=== PATIENT | female | born 1990 | race Caucasian/White ===

== ENCOUNTER 2020-02-28 19:15 | Emergency (ER) | payer OTHER, MEDICAID, SELFPAY ==
[2020-02-28 19:20] VITALS: BP 125/84; PULSE 120; RESP 20; TEMP 36.8; O2SAT 100; BMI 28.3
[2020-02-28 19:45] LABS: Glucose Urine UA NEG (NEG); Leukocyte Esterase Urine NEG (NEG); Nitrite Urine NEG (NEG); PH 5.5 (5.0-8.0); Urine Blood NEG (NEG); Urine Ketones NEG (NEG); Urine Protein NEG (NEG-TRACE)
[2020-02-28 19:51] LABS: Appearance Urine CLEAR; Color Urine YELLOW
[2020-02-28] MEDS: cefTRIAXone sodium 250 MG, Lidocaine HCl 1 % MPF 0.9 ML IM (20:11)
[2020-02-28] MEDS: Azithromycin 500 MG TABLET 1000 MG PO (20:11)
--- NOTE | 2020-02-28 20:24 | PC.NURSE ---
urine was obtained in triage, called lab and they are looking for urine, pt medicated per order.
--- NOTE | 2020-02-28 20:31 | ED_ITS ---
HPI - Female Genitourinary General Chief complaint: Urogenital-Female Stated complaint: STD TEST Time Seen by Provider: 02/28/20 19:45 Source: patient Mode of arrival: ambulatory Limitations: no limitations History of Present Illness HPI Narrative: States informed by her ex- whom she has been sexually active with that he has gonorrhea and she is now having symptoms of burning-like discomfort with urination and some rectal itching. Has been in the ED as well getting tested and treated for gonorrhea. No vaginal rash, lesions, bleeding. States on control no concern for . MD elicited complaint: dysuria Pertinent past history: STI/STD Related Data Allergies Allergy/AdvReac Type Severity Reaction Status Date / Time No Known Allergies Allergy Verified 02/28/20 19:26 Review of Systems Review of Systems: Constitutional: No Weight loss, No Fever, No Chills, No Night Sweats, No Fatigue, No Malaise ENT/Mouth: No Hearing loss, No Ear Pain, No Nasal Congestion, No Sinus Pain, No Hoarseness Eyes: No Eye Pain, No Swelling, No Redness, No Foreign Body, No Discharge, No Vision Changes Cardiovascular: No Chest Pain, No SOB, No Dyspnea on Exertion, No Orthopnea, No Edema, No Palpitations Respiratory: No Cough, No Sputum, No Wheezing, No Smoke Exposure, No Dyspnea Gastrointestinal: No Nausea, No Vomiting, No Diarrhea, No Constipation, No abdominal Pain, No Hematochezia, No Melena Genitourinary: no irregular bleeding, + Dysuria, No Urinary Frequency, No Hematuria, No Urinary Incontinence, No Urgency, No Flank Pain, No Urinary Flow Changes, No Hesitancy Musculoskeletal: No joint pain, No Myalgias, No Joint Swelling Skin: No Skin Lesions, No rash Neuro: No Headache Psych: No Social Issues, Heme/Lymph: No Bruising, No Bleeding,No Lymphadenopathy Endocrine: No Polyuria, No Polydipsia, No Temperature Intolerance Yes all other systems are reviewed and are negative PMFSH Past Medical History Medical History (Updated 02/28/20 @ 20:32 by Mikie Hansen NP) No known health problems Social History Social History Advance Directives: No Advance Directives Information Provided: Yes Physical Exam Vital Signs: Vital Signs: Last Vital Signs Temp 98.3 F 02/28/20 19: Pulse 120 H 12/10/20 19:20 Resp 20 02/28/20 19:20 BP 125/84 02/28/20 19:20 Pulse Ox 100 02/28/20 19:20 Body Mass Index 28.3 Reviewed Const: General: cooperative and healthy appearing; No acute distress or intoxicated appearing Nutritional Appearance: average body habitus Orientation/consciousness: patient oriented x3 HENMT: Head: Yes normal to inspection Ears: hearing grossly normal bilaterally Eyes: General: appearance normal, both eyes and all related structures Visual Armenta: normal visual armenta by confrontation Chest: Chest palpation & inspection: normal inspection of the chest Resp: Effort & Inspection: normal respiratory effort Cardio: Jugular venous distension: no JVD GI: Inspection: Yes normal to inspection Percussion: Yes normal to percussion Auscultation: normal bowel sounds : General: Yes no CVA tenderness Back/Spine/Pelvis: Back: no CVA tenderness Skin: General skin exam: no rashes or lesions noted Neuro: General: patient oriented x3 Extrem: General: Yes normal to inspection MDM - Female Genitourinary Lab Data Labs: Lab Results 02/28/20 Range/Units 19:32 Urine Color YELLOW Urine Appearance CLEAR Urine pH 5.5 (5.0-8.0) Ur Specific [place] 1.010 (1.005-1.025) Urine Protein NEG (NEG-TRACE) MG/DL Urine Glucose (UA) NEG (NEG) MG/DL Urine Ketones NEG (NEG) MG/DL Urine Blood NEG (NEG) Urine Nitrite NEG (NEG) Ur Leukocyte Esterase NEG (NEG) Discharge Plan Discharge Clinical Impression: Encounter for assessment of STD exposure Patient Disposition: Home, Self-Care Instructions: Sexually Transmitted Diseases (ED), Safe Sex Practices (ED) Additional Instructions: Please follow-up with the health center for full panel STD testing as reviewed Today you were evaluated for 2 common STDs (chlamydia/gonorrhea) and treated for this We have gone ahead and tested you this may take up to 3-4 days results will call with results only if positive Please avoid any further low sexual activity until your symptoms resolve and you have been cleared by the [facility] Return if any concerns or worsening symptoms Thank you Referrals: Physician,None [Primary Care Provider] - 3 days ([facility] )
--- NOTE | 2020-02-28 20:45 | PC.NURSE ---
patient uncooperative, patient left without discharge paperwork, provider did go over discharge prior to them leaving
[2020-03-28 16:15] LABS: CT PCR NOT DETECTED (Not Detect.); NG PCR NOT DETECTED (Not Detect.)
== END 2020-02-28 20:48 | disposition home or self-care (01) ==
PROVIDERS: Emergency Provider Internal Medicine
DX: Z20.2 Contact with and (suspected) exposure to infections with a predominantly sexual mode of transmission (principal)
CPT/HCPCS: 81003; 81025; 87491; 87591; 99283; J0696

== ENCOUNTER 2020-05-15 13:03 | Emergency (ER) | payer OTHER, SELFPAY | END 2020-05-15 13:31 | disposition left against medical advice (07) | PROVIDERS: Emergency Provider Emergency Medicine | DX: N93.9 Abnormal uterine and vaginal bleeding, unspecified (principal) ==

== ENCOUNTER 2020-05-21 19:45 | Emergency (ER) | payer OTHER, SELFPAY | END 2020-05-21 21:08 | disposition left against medical advice (07) | PROVIDERS: Emergency Provider Emergency Medicine | DX: Z11.3 Encounter for screening for infections with a predominantly sexual mode of transmission (principal) ==

== ENCOUNTER 2021-05-27 08:12 | Outpatient (REF) | payer OTHER, MEDICAID, SELFPAY ==
--- NOTE | ~2021-05-27 | XR_ITS ---
EXAMINATION: XR FOOT, LEFT CLINICAL INFORMATION: Pain COMPARISON: None TECHNIQUE: AP, lateral, and oblique views of the left foot. FINDINGS: There is normal alignment without acute fracture or dislocation. Joint spaces are preserved. There is a focal soft tissue prominence over the fifth metatarsophalangeal joint. XR/XR foot LT min 3V IMPRESSION: No acute bony abnormality of the left foot. Focal soft tissue prominence over the fifth metatarsophalangeal joint. Consider further evaluation with ultrasound.
[2021-05-27 11:29] LABS: MANUAL DIFF FLAG NO
[2021-05-27 11:41] LABS: Basophils Absolute Auto 0.1 X10*3/uL (0.0-0.2); Basophils Percent Auto 0.6 % (0-2); Eosinophils Absolute Auto 0.3 X10*3/uL (0.0-0.4); Eosinophils Percent Auto 3.4 % (0-4); Hematocrit 41.6 % (37.0-47.0); Hemoglobin 13.7 g/dl (12.0-16.0); Imm Gran Abs Auto 0.06 X10*3/uL (0.00-0.03); Imm Gran Pct Auto 0.7 % (0.0-0.4); Lymphocytes Absolute Auto 1.6 X10*3/uL (1.2-4.9); Mean Corpuscular HGB Conc 32.9 g/dl (31.0-35.0); Mean Corpuscular Hemoglobin 29.6 pg (27.0-33.0); Mean Corpuscular Volume 89.8 fL (80.0-98.0); Mean Platelet Volume 11.8 fL (9.4-12.3); Monocytes Absolute Auto 0.6 X10*3/uL (0.1-1.2); Monocytes Percent Auto 7.1 % (2-11); Neutrophils Absolute Auto 6.3 x10*3/uL (2.0-8.3); Neutrophils Percent Auto 70.2 % (45-73); Platelet Count 276 X10*3/uL (160-400); Red Blood Count 4.63 X10*6/uL (4.20-5.50); Red Cell Distribution Width 12.6 % (11.0-16.0)
[2021-05-27 11:55] LABS: Estimated Average Glucose 97 mg/dL
[2021-05-27 12:18] LABS: Alanine Aminotransferase 18 U/L (0-31); Albumin Level 4.5 g/dL (3.5-5.0); Alkaline Phosphatase 72 U/L (39-117); Anion Gap 9 (12-20); Aspartate Amino Transferase 19 U/L (5-31); Bilirubin Total 0.5 mg/dL (0.0-1.0); Blood Urea Nitrogen 8 mg/dL (9-16); Calcium 9.8 mg/dL (8.4-10.2); Carbon Dioxide 28 mmol/L (22-29); Chloride 106 mmol/L (96-108); Cholesterol 197 mg/dL; Estimated Glomerular Filt Rate > 60; Glucose Fasting 82 mg/dL (60-99); HDL Cholesterol 38 mg/dL; LDL Cholesterol Calculated 133 mg/dl; Potassium 4.3 mmol/L (3.3-5.1); Sodium 139 mmol/L (135-145); Total Protein 7.1 g/dL (6.5-8.0); Triglycerides 134 mg/dL
[2021-05-27 12:38] LABS: Vitamin B12 512 pg/mL (200-900)
[2021-05-31 13:41] LABS: Vitamin D 25-OH, D2 <4 ng/mL; Vitamin D 25-OH, D3 21 ng/mL; Vitamin D 25-OH, Total 21 ng/mL (30-100)
== END 2021-05-27 08:13 | disposition home or self-care (01) ==
LOC: HO.HMGCLDS 08:12
PROVIDERS: Visit Provider Internal Medicine
DX: M79.672 Pain in left foot (principal); R20.2 Paresthesia of skin; R94.31 Abnormal electrocardiogram [ECG] [EKG]; E66.09 Other obesity due to excess calories; Z76.89 Persons encountering health services in other specified circumstances
CPT/HCPCS: 36415; 73630; 80053; 80061; 82306; 82607; 83036; 84443; 85025

== ENCOUNTER → 2021-06-18 09:21 | Outpatient (BNVA) | payer OTHER, SELFPAY | PROVIDERS: PCP Internal Medicine; Referring Provider Internal Medicine; Visit Provider Internal Medicine Cardiovascular Disease | DX: R07.9 Chest pain, unspecified (principal); Z72.0 Tobacco use | CPT/HCPCS: 93005; 99202 ==

== ENCOUNTER 2021-07-17 18:05 | Emergency (ER) | payer OTHER, SELFPAY ==
--- NOTE | ~2021-07-17 | XR_ITS ---
EXAMINATION: PORTABLE CHEST 1 VIEW CLINICAL INFORMATION: Cough with left-sided pain . COMPARISON: 06/11/2019. TECHNIQUE: Portable frontal view of the chest was obtained. FINDINGS: The lungs are well expanded. No focal infiltrate, effusion, edema, or pneumothorax. Cardiac and mediastinal silhouettes are within normal limits for technique. No acute bony abnormality seen. XR/XR chest 1V IMPRESSION: No evidence of acute disease.
[2021-07-17 18:07] VITALS: BP 130/69; PULSE 95; RESP 18; TEMP 36.6; O2SAT 99; BMI 31.7
--- NOTE | 2021-07-17 18:22 | ED.ABDPAIN ---
HPI - Abdominal Pain General Chief Complaint: Abdominal Pain Stated Complaint: upper abd pain/under breast Time Seen by Provider: 07/17/21 18:22 Source: patient Mode of arrival: ambulatory Limitations: no limitations History of Present Illness HPI narrative: Patient with cold symptoms for last 3 weeks other family member also sick coughing with mucopurulent expectoration complaining of pain in the left lower chest for last 3 weeks worse in last 3 days no shortness of breath no fevers no urinary complaints patient also worried about STD exposure on to get it tested no nausea no vomiting no diarrhea patient also had unprotected sex 2 weeks ago and had vaginal discharge none now asking for STD prophylaxis and diagnosis Related Data Previous Rx's Medication Instructions Recorded cholecalciferol (vitamin D3) 25 25 mcg PO DAILY 90 Days #90 cap 06/10/21 mcg (1,000 unit) capsule nicotine 14 mg/24 hr daily 1 patch TRANSDERMAL DAILY #28 ea 06/18/21 transdermal patch metronidazole 500 mg tablet 500 mg PO BID 7 Days #14 tab 07/17/21 Allergies Allergy/AdvReac Type Severity Reaction Status Date / Time No Known Allergies Allergy Verified 06/18/21 09:24 Review of Systems Review of Systems Yes all other systems are reviewed and are negative PMF Past Medical History Medical History No known health problems Surgical History No pertinent past surgical history Family History Family History Mother Heart disease Father No problems noted. Other Mental health disorder Substance use disorder Social History Social History Housing: Apartment Alcohol intake: never Patient Tobacco Use Status: Current everyday Tobacco user Cigarette Packs Per Day: 0.5 Cigarettes Per Day: 10 Years Smoked: 15 +/- Advance Directives: No Advance Directives Information Provided: No Patient : No Current occupational status: employed Physical Exam ED Vital Signs: Vital Signs - 24 hr 07/17/21 18:07 07/17/21 18:32 07/17/21 20:49 Temperature 98 F 98 F Pulse Rate 95 87 84 Respiratory Rate 18 15 16 Blood Pressure 130/69 103/69 Pulse Oximetry 99 99 98 BMI result Body Mass Index 31.7 Appearance: Alert. Oriented X3. No acute distress. ENT: Pharynx normal. Oral Mucosa moist Neck: Normal inspection. Neck supple. CVS: Normal heart rate and rhythm. Pulses normal. Respiratory: No respiratory distress. Equal air entry bilateral, Abdomen: Soft , mild tenderness left upper quadrant no reported some good Bowel sounds are present, no mass palpable, no CVA tenderness Skin: Skin warm and dry. Normal skin color. Normal skin turgor. Extremities: No lower extremity edema. No calf tenderness Neuro: Oriented X 3. MDM - Abdominal Pain MDM Narrative Medical decision making narrative: Patient nonspecific complaints workup is negative will give her prophylactic treatment for STD Lab Data Attestation: I reviewed the patient's lab results. Result diagrams: 07/17/21 18:53 07/17/21 18:53 Labs: Lab Results 07/17/21 07/17/21 07/17/21 Range/Units 18:53 18:53 18:53 WBC 10.2 (4.8-10.8) X10*3/uL RBC 4.31 (4.20-5.50) X10*6/uL Hgb 12.8 (12.0-16.0) g/dl Hct 38.2 (37.0-47.0) % MCV 88.6 (80.0-98.0) fL MCH 29.7 (27.0-33.0) pg MCHC 33.5 (31.0-35.0) g/dl RDW 12.3 (11.0-16.0) % Plt Count 275 (160-400) X10*3/uL MPV 10.7 (9.4-12.3) fL Immature Gran % (Auto) 0.3 (0.0-0.4) % Neut % (Auto) 59.5 (45-73) % Lymph % (Auto) 28.6 (20-40) % [place] % (Auto) 7.4 (2-11) % Eos % (Auto) 3.7 (0-4) % Baso % (Auto) 0.5 (0-2) % Lymph # (Auto) 2.9 (1.2-4.9) X10*3/uL [place] # (Auto) 0.8 (0.1-1.2) X10*3/uL Eos # (Auto) 0.4 (0.0-0.4) X10*3/uL Baso # (Auto) 0.1 (0.0-0.2) X10*3/uL Abs Immat Gran (auto) 0.03 (0.00-0.03) X10*3/uL Absolute Neuts (auto) 6.1 (2.0-8.3) x10*3/uL Absolute Nucleated RBC 0.000 (0.0-0.012) X10*3/uL Nucleated RBC % (auto) 0.0 (0.0-0.2) /100WBC Sodium 146 H (135-145) mmol/L Potassium 4.3 (3.3-5.1) mmol/L Chloride 107 (96-108) mmol/L Carbon Dioxide 30 H (22-29) mmol/L Anion Gap 13 (12-20) BUN 6 L (9-16) mg/dL Creatinine 0.80 (0.5-1.4) mg/dL Estim Creat Clear Calc 105.7 Estimated GFR > 60 Random Glucose 103 (60-115) mg/dL Calcium 10.2 (8.4-10.2) mg/dL Total Bilirubin 0.2 (0.0-1.0) mg/dL AST 19 (5-31) U/L ALT 21 (0-31) U/L Alkaline Phosphatase 79 (39-117) U/L Total Protein 7.2 (6.5-8.0) g/dL Albumin 4.4 (3.5-5.0) g/dL Lipase 28 (8-78) U/L Urine Color YELLOW Urine Appearance CLEAR Urine pH 6.5 (5.0-8.0) Ur Specific [place] 1.010 (1.005-1.025) Urine Protein NEG (NEG-TRACE) MG/DL Urine Glucose (UA) NEG (NEG) MG/DL Urine Ketones NEG (NEG) MG/DL Urine Blood NEG (NEG) Urine Nitrite NEG (NEG) Ur Leukocyte Esterase NEG (NEG) COVID-19 (JIMENEZ) (Negative) COVID-19 Clin Com Influenza Type A (SHERITA) (Negative) Influenza Type B (SHERITA) (Negative) Influenza A & B Note 07/17/21 07/17/21 Range/Units 18:55 18:55 WBC (4.8-10.8) X10*3/uL RBC (4.20-5.50) X10*6/uL Hgb (12.0-16.0) g/dl Hct (37.0-47.0) % MCV (80.0-98.0) fL MCH (27.0-33.0) pg MCHC (31.0-35.0) g/dl RDW (11.0-16.0) % Plt Count (160-400) X10*3/uL MPV (9.4-12.3) fL Immature Gran % (Auto) (0.0-0.4) % Neut % (Auto) (45-73) % Lymph % (Auto) (20-40) % Bledso[place] % (Auto) (2-11) % Eos % (Auto) (0-4) % Baso % (Auto) (0-2) % Lymph # (Auto) (1.2-4.9) X10*3/uL [place] # (Auto) (0.1-1.2) X10*3/uL Eos # (Auto) (0.0-0.4) X10*3/uL Baso # (Auto) (0.0-0.2) X10*3/uL Abs Immat Gran (auto) (0.00-0.03) X10*3/uL Absolute Neuts (auto) (2.0-8.3) x10*3/uL Absolute Nucleated RBC (0.0-0.012) X10*3/uL Nucleated RBC % (auto) (0.0-0.2) /100WBC Sodium (135-145) mmol/L Potassium (3.3-5.1) mmol/L Chloride (96-108) mmol/L Carbon Dioxide (22-29) mmol/L Anion Gap (12-20) BUN (9-16) mg/dL Creatinine (0.5-1.4) mg/dL Estim Creat Clear Calc Estimated GFR Random Glucose (60-115) mg/dL Calcium (8.4-10.2) mg/dL Total Bilirubin (0.0-1.0) mg/dL AST (5-31) U/L ALT (0-31) U/L Alkaline Phosphatase (39-117) U/L Total Protein (6.5-8.0) g/dL Albumin (3.5-5.0) g/dL Lipase (8-78) U/L Urine Color Urine Appearance Urine pH (5.0-8.0) Ur Specific [place] (1.005-1.025) Urine Protein (NEG-TRACE) MG/DL Urine Glucose (UA) (NEG) MG/DL Urine Ketones (NEG) MG/DL Urine Blood (NEG) Urine Nitrite (NEG) Ur Leukocyte Esterase (NEG) COVID-19 (JIMENEZ) Negative (Negative) COVID-19 Clin Com See Note Influenza Type A (SHERITA) Negative (Negative) Influenza Type B (SHERITA) Negative (Negative) Influenza A & B Note See Note Discharge Plan Discharge Clinical Impression: Exposure to STD, Abdominal pain Patient Disposition: Home, Self-Care Instructions: Sexually Transmitted Diseases (ED), Abdominal Pain (ED) Additional Instructions: Take ibuprofen for pain Medicine for vaginal infection Follow with PCP Prescriptions: New metronidazole 500 mg tablet 500 mg PO BID 7 Days Qty: 14 0RF No Action cholecalciferol (vitamin D3) 25 mcg (1,000 unit) capsule 25 mcg PO DAILY 90 Days Qty: 90 0RF nicotine 14 mg/24 hr patch 24 hour 1 patch transdermal DAILY Qty: 28 3RF
--- NOTE | 2021-07-17 18:30 | PC.NURSE ---
pt reports congestion x 3 weeks, dry cough, c/o upper back pain , and LUQ Pain x 3 days, has been guarding c/o sharp pain. reports having unprotected sex 2 weeks ago with someone new.
[2021-07-17 18:32] VITALS: BP 103/69; PULSE 87; RESP 15; TEMP 36.6; O2SAT 99
[2021-07-17 19:03] LABS: MANUAL DIFF FLAG NO
[2021-07-17 19:04] LABS: Basophils Absolute Auto 0.1 X10*3/uL (0.0-0.2); Basophils Percent Auto 0.5 % (0-2); Eosinophils Absolute Auto 0.4 X10*3/uL (0.0-0.4); Eosinophils Percent Auto 3.7 % (0-4); Hematocrit 38.2 % (37.0-47.0); Hemoglobin 12.8 g/dl (12.0-16.0); Imm Gran Abs Auto 0.03 X10*3/uL (0.00-0.03); Imm Gran Pct Auto 0.3 % (0.0-0.4); Lymphocytes Absolute Auto 2.9 X10*3/uL (1.2-4.9); Lymphocytes Percent Auto 28.6 % (20-40); Mean Corpuscular HGB Conc 33.5 g/dl (31.0-35.0); Mean Corpuscular Hemoglobin 29.7 pg (27.0-33.0); Mean Corpuscular Volume 88.6 fL (80.0-98.0); Mean Platelet Volume 10.7 fL (9.4-12.3); Monocytes Absolute Auto 0.8 X10*3/uL (0.1-1.2); Monocytes Percent Auto 7.4 % (2-11); Neutrophils Absolute Auto 6.1 x10*3/uL (2.0-8.3); Neutrophils Percent Auto 59.5 % (45-73); Platelet Count 275 X10*3/uL (160-400); Red Blood Count 4.31 X10*6/uL (4.20-5.50); Red Cell Distribution Width 12.3 % (11.0-16.0); White Blood Count 10.2 X10*3/uL (4.8-10.8)
[2021-07-17 19:07] LABS: Appearance Urine CLEAR; Color Urine YELLOW; Glucose Urine UA NEG (NEG); Leukocyte Esterase Urine NEG (NEG); Nitrite Urine NEG (NEG); PH 6.5 (5.0-8.0); Urine Blood NEG (NEG); Urine Ketones NEG (NEG); Urine Protein NEG (NEG-TRACE)
[2021-07-17 19:19] LABS: Alanine Aminotransferase 21 U/L (0-31); Albumin Level 4.4 g/dL (3.5-5.0); Alkaline Phosphatase 79 U/L (39-117); Anion Gap 13 (12-20); Aspartate Amino Transferase 19 U/L (5-31); Bilirubin Total 0.2 mg/dL (0.0-1.0); Blood Urea Nitrogen 6 mg/dL (9-16); Calcium 10.2 mg/dL (8.4-10.2); Carbon Dioxide 30 mmol/L (22-29); Chloride 107 mmol/L (96-108); Creatinine Clr Calc Pharmacy 105.7; Estimated Glomerular Filt Rate > 60; Glucose Random 103 mg/dL (60-115); Lipase 28 U/L (8-78); Potassium 4.3 mmol/L (3.3-5.1); Sodium 146 mmol/L (135-145); Total Protein 7.2 g/dL (6.5-8.0)
[2021-07-17 19:20] LABS: COVID-19 Test Negative (Negative); IDNOW Serial# 16C4AD1C; Influenza A Negative (Negative); Influenza B2 Negative (Negative)
[2021-07-17 20:49] VITALS: PULSE 84; RESP 16; O2SAT 98
[2021-07-17] MEDS: cefTRIAXone sodium 500 MG, Lidocaine HCl 1 % MPF 1 ML IM (21:00)
[2021-07-17] MEDS: Azithromycin 500 MG TABLET 1000 MG PO (21:00)
[2021-07-17] MEDS: Ibuprofen 600 MG TABLET PO (21:00)
[2021-07-17] MEDS: metroNIDAZOLE 500 MG TABLET PO (21:00)
[2021-07-17 21:05] VITALS: BP 116/70; TEMP 36.6
[2021-07-18 05:34] LABS: CT PCR NOT DETECTED (Not Detect.); NG PCR NOT DETECTED (Not Detect.)
== END 2021-07-17 21:06 | disposition home or self-care (01) ==
PROVIDERS: Emergency Provider Internal Medicine
DX: R07.89 Other chest pain (principal); R10.32 Left lower quadrant pain; F17.210 Nicotine dependence, cigarettes, uncomplicated; Z20.2 Contact with and (suspected) exposure to infections with a predominantly sexual mode of transmission; Z79.899 Other long term (current) drug therapy; Z20.822 Contact with and (suspected) exposure to COVID-19; Z71.6 Tobacco abuse counseling
CPT/HCPCS: 36415; 71045; 80053; 81003; 83690; 85025; 87491; 87502; 87591; 87635; 96372; 99284; 99285; J0696

== ENCOUNTER → 2021-07-31 09:37 | Outpatient (REF) | payer OTHER, MEDICAID, SELFPAY ==
--- NOTE | ~2021-07-31 | XR_ITS ---
EXAMINATION: XR CERVICAL SPINE CLINICAL INFORMATION: Chronic cervical pain, limited range of motion. COMPARISON: None TECHNIQUE: 6 views of the cervical spine, inclusive of flexion and extension views, were obtained. FINDINGS: There is mild straightening of cervical lordosis. The vertebral heights, alignment and disc heights are normal. No visible acute fracture, dislocation or subluxation seen. The prevertebral soft tissues are normal. On flexion and extension views, there is no subluxation seen. XR/XR cervical spine w flex/ext IMPRESSION: Unremarkable cervical spine exam.
--- NOTE | 2021-07-31 09:41 | CA_ITS ---
Transthoracic Echocardiogram Patient (Last, First, Middle): Enoc Aguilar Toni Gender: Female Date of : 1990 Age: 30 Procedure Date: 07/31/2021 Procedure Type: Transthoracic Echocardiogram Location: OP Height: 162.56 cm Weight: 86.18 kg BSA: 1.91 m2 Heart Rate: bpm BP: 120 / 58 mmHg Customer Experience Retail Clerk: SB Referring MD: Julius Dwyer MD Drying Tunnel Operator: Jimmy Faust MD Symptoms: R07.9 - Chest pain, unspecified Study Quality: Adequate ECG Rhythm: Bradycardia Conclusions: - Normal study Findings Left Ventricle Normal left ventricular size, thickness, and systolic function. The visually estimated ejection fraction is between 60-65%. Spectral Doppler is indicative of a normal filling pattern. Peak GLS -18.8%, within normal limit. Right Ventricle Normal right ventricular cavity size and systolic function. Atria Both atria are normal in size. There is no evidence of interatrial shunt. Aortic Valve Normal aortic valve structure and function. There is no aortic valve stenosis. There is no aortic valve regurgitation. Mitral Valve Normal mitral valve structure and function. There is trace mitral valve regurgitation. There is no mitral valve stenosis. Pulmonic Valve The pulmonic valve was not well visualized. Tricuspid Valve Normal tricuspid valve structure. There is trace tricuspid valve regurgitation. Normal right atrial pressure. There is no evidence of pulmonary hypertension. Great Vessels All visible segments of the aorta are normal in size. The pulmonary artery was not well visualized. Venous The inferior vena cava is normal in size and collapses greater than 50% with inspiration. Pericardium/Pleural There is no evidence of pericardial effusion. Prior Study Comparison No prior study available for comparison. Measurements 2D Linear Measurements IVSd: 0.79 0.6-0.9/0.6-1.0 cm LVIDd: 5.00 3.9-5.3/4.2-5.9 cm LVIDd Index: 2.62 2.4-3.2/2.2-3.1 cm/m2 LVIDs: 3.66 2.0-3.6 cm LVPWd: 0.49 0.7-1.1 cm LA Diam: 3.30 2.7-3.8/3.0-4.0 cm LAIDs Index: 1.73 1.5-2.3 cm/m2 LV Mass: 128.20 67-162/88-224 g LV Mass Index: 67.12 43-95/49-115 g/m2 LVOT Diam: 2.10 3.0+(-)1.3 cm 2D Systolic Function EF 4C: 65.80 >55% EF 2C: 53.10 >55% Mitral Valve MV Pk E: 0.70 MV PK A: 0.51 MV Decel Time: 190.00 E/A: 1.40 E'Lateral: 14.10 E'Medial: 8.70 E/E' Med: 8.00 E/E' Lat: 5.00 PHT: 56.00 MVA PHT: 3.93 Decel Cascade: 3.68 Aortic Valve AoV Pk [place]: 1.18 AoV Mn [place]: 0.88 AoV VTI: 0.26 AoV Pk Grad: 6.00 Aov Mn Grad: 3.00 NADYA Cont.VTI: 2.31 LVOT LVOT Pk [place]: 0.80 LVOT Mn [place]: 0.57 LVOT VTI: 0.17 LVOT Pk Grad: 3.00 LVOT Mn Grad: 1.00 LVOT Diam: 2.10 LVOT Area: 3.46 Diastolic Function MV Pk E: 0.70 MV Pk A: 0.51 E/A: 1.40 E'Medial: 8.70 E/E' Med: 8.00 E' Laterial: 14.10 E/E' Lat: 5.00 Right Ventricle TAPSE (mm): 18.80 TVS' [place]illan: 8.10 Tricuspid Valve TR Pk [place]: 2.10 TR Pk Grad: 18.00 RA Press: 3.00 RVSP: 21.00 Great Vessels Aorta Sinus of Valsalva: 2.35 2.0-3.[address] [place]: 21.00 1.7-3.4 cm Ao Asc: 2.70 2.1-3.4 cm Pulmonary Valve PV Pk Dillan: 0.91 Peak PV Grad: 3.00 Updated in Other Vendor System with Status of Final Jimmy Faust MD electronically signed on 08/01/2021 3:01:39 PM with status of Final
== END ==
LOC: HO.CARD 09:37
PROVIDERS: PCP Internal Medicine; Visit Provider Internal Medicine Cardiovascular Disease
DX: R07.9 Chest pain, unspecified (principal); M54.2 Cervicalgia; R20.2 Paresthesia of skin; G43.009 Migraine without aura, not intractable, without status migrainosus
CPT/HCPCS: 72052; 93306; 93356; 99202

== ENCOUNTER 2021-09-14 18:12 | Outpatient (REF) | payer OTHER, SELFPAY ==
--- NOTE | ~2021-09-14 | MR_ITS ---
EXAMINATION: MR BRAIN WITHOUT CONTRAST CLINICAL INFORMATION: Migraine. COMPARISON: None. TECHNIQUE: Multiplanar, multisequence imaging of the brain was performed without contrast. Limited study with motion artifacts. FINDINGS: No diffusion abnormalities are identified to suggest an acute or subacute infarct. The ventricles are normal in size. No mass effect or midline shift is seen. No brain parenchymal signal abnormality is noted. No extra-axial fluid collections are seen. The brainstem and cerebellum are normal. The gradient refocused acquisition is normal. The craniovertebral junction, marrow signal, and midline structures are normal. The major intracranial flow voids at the level of the [place] of [place] are preserved. The dural venous sinus flow voids are maintained. The mastoid air cells are well aerated. There are patchy areas of mild mucosal thickening in the maxillary and ethmoid sinuses. MR/MR head/brain wo con IMPRESSION: No acute process. Normal limited MRI of the brain with motion artifacts.
== END 2021-09-14 18:13 | disposition home or self-care (01) ==
LOC: HO.MRI 18:12
PROVIDERS: Visit Provider Nurse Practitioner Family
DX: G43.009 Migraine without aura, not intractable, without status migrainosus (principal); R20.2 Paresthesia of skin
CPT/HCPCS: 70551

== ENCOUNTER 2021-09-18 07:53 | Outpatient (REF) | payer OTHER, SELFPAY ==
--- NOTE | 2021-09-18 07:56 | EEG_ITS ---
This is a 16-channel EEG with an EKG lead. The patient is reported awake and restless during the tracing. Background EEG rhythm is 10 to 12 hertz, 5 to 20 microvolt posteriorly, lower amplitude fast anteriorly. Photic stimulation does not produce any significant abnormality. Hyperventilation is not performed. No definite sharp wave spikes or paroxysmal tendency noted. The patient was frequently talking creating some muscle artifacts. EKG lead revealed no significant abnormality. IMPRESSION: Unremarkable EEG. MD VICTOR MANUEL Chong/LAURIE / [id number]
== END 2021-09-18 07:54 | disposition home or self-care (01) ==
LOC: HO.NEURO 07:53
PROVIDERS: Visit Provider Nurse Practitioner Family
DX: G43.009 Migraine without aura, not intractable, without status migrainosus (principal); R20.2 Paresthesia of skin
CPT/HCPCS: 95816

== ENCOUNTER → 2021-10-29 07:56 | Outpatient (BNVA) | payer OTHER, SELFPAY | PROVIDERS: Visit Provider Nurse Practitioner Family | DX: G43.009 Migraine without aura, not intractable, without status migrainosus (principal); M54.2 Cervicalgia; R20.2 Paresthesia of skin | CPT/HCPCS: 99212 ==

== ENCOUNTER 2021-11-12 19:36 | Emergency (ER) | payer OTHER, SELFPAY ==
--- NOTE | 2021-11-12 | ECG_ITS ---
Test Reason : chest pain Blood Pressure : / mmHG Vent. Rate : 090 BPM Atrial Rate : 090 BPM P-R Int : 132 ms QRS Dur : 090 ms QT Int : 376 ms P-R-T Axes : 025 019 016 degrees QTc Int : 459 ms Normal sinus rhythm Nonspecific T wave abnormality Abnormal ECG When compared with ECG of 11-JUN-2019 07:25, Criteria for Septal infarct are no longer Present Nonspecific T wave abnormality, worse in Anterior leads Referred By: Generic ED Physician Electronically Signed By:JAYJAY BURRIS
--- NOTE | ~2021-11-12 | CT_ITS ---
EXAMINATION: CT ABDOMEN AND PELVIS WITHOUT CONTRAST CLINICAL INFORMATION: Left flank pain COMPARISON: None TECHNIQUE: Multidetector volumetric imaging was performed from the superior aspect of the liver through the pubic symphysis. Sagittal and coronal reformatted images were obtained on the technologist's workstation. This CT examination was performed using dose optimization techniques as appropriate, variously including the following: *Automated exposure control *Adjustment of mA and/or kV according to patient size (this includes techniques or standardized protocols for targeted exams where dose is matched to indication/reason for exam; i.e. extremities or head) *Use of iterative reconstruction technique DLP: 661 mGy-cm FINDINGS: LUNG BASES: The visualized lung bases are unremarkable. LIVER, GALLBLADDER, AND BILIARY TREE: The liver is normal in size, shape, and attenuation. No focal hepatic lesion or biliary ductal dilatation is identified. The gallbladder is unremarkable with no evidence of radiopaque gallstones, gallbladder wall thickening, or obvious pericholecystic inflammatory changes. PANCREAS: Unremarkable. SPLEEN: Unremarkable. ADRENAL GLANDS: Unremarkable. KIDNEYS AND URETERS: The kidneys are normal in size, shape, and attenuation. No hydronephrosis, hydroureter, or calculi seen. No perinephric stranding. BLADDER: Unremarkable. GASTROINTESTINAL TRACT: No evidence of bowel obstruction or significant wall thickening. The appendix is unremarkable. No free fluid or free air is seen. ABDOMINAL WALL: No significant hernia is appreciated. LYMPH NODES: Normal. VASCULAR: Unremarkable. PELVIC VISCERA: Unremarkable. OSSEOUS STRUCTURES: Degenerative change noted at the left sacroiliac joint. CT/CT abdomen pelvis wo con IMPRESSION: No acute findings identified in the abdomen/pelvis.
--- NOTE | ~2021-11-12 | XR_ITS ---
EXAMINATION: XR CHEST CLINICAL INFORMATION: Pain COMPARISON: July 17, 2021 TECHNIQUE: 2 views of the chest were obtained. FINDINGS: No significant abnormality is noted involving the heart, lungs, mediastinum, bony thorax or soft tissues. XR/XR chest 2V IMPRESSION: No acute disease
[2021-11-12 19:39] VITALS: BP 118/82; PULSE 113; RESP 16; TEMP 36.9; O2SAT 98; BMI 32.5
[2021-11-12 20:00] LABS: MANUAL DIFF FLAG NO
[2021-11-12 20:02] LABS: Basophils Absolute Auto 0.1 X10*3/uL (0.0-0.2); Basophils Percent Auto 0.4 % (0-2); Eosinophils Absolute Auto 0.3 X10*3/uL (0.0-0.4); Eosinophils Percent Auto 2.6 % (0-4); Hematocrit 36.3 % (37.0-47.0); Hemoglobin 12.6 g/dl (12.0-16.0); Imm Gran Abs Auto 0.07 X10*3/uL (0.00-0.03); Imm Gran Pct Auto 0.6 % (0.0-0.4); Lymphocytes Absolute Auto 2.5 X10*3/uL (1.2-4.9); Lymphocytes Percent Auto 21.6 % (20-40); Mean Corpuscular HGB Conc 34.7 g/dl (31.0-35.0); Mean Corpuscular Hemoglobin 29.8 pg (27.0-33.0); Mean Corpuscular Volume 85.8 fL (80.0-98.0); Mean Platelet Volume 11.1 fL (9.4-12.3); Monocytes Absolute Auto 0.7 X10*3/uL (0.1-1.2); Monocytes Percent Auto 5.9 % (2-11); Neutrophils Absolute Auto 7.9 x10*3/uL (2.0-8.3); Neutrophils Percent Auto 68.9 % (45-73); Platelet Count 270 X10*3/uL (160-400); Red Blood Count 4.23 X10*6/uL (4.20-5.50); Red Cell Distribution Width 12.7 % (11.0-16.0); White Blood Count 11.4 X10*3/uL (4.8-10.8)
[2021-11-12 20:18] LABS: Alanine Aminotransferase 49 U/L (0-31); Albumin Level 4.2 g/dL (3.5-5.0); Alkaline Phosphatase 86 U/L (39-117); Anion Gap 16 (12-20); Aspartate Amino Transferase 32 U/L (5-31); Bilirubin Total 0.3 mg/dL (0.0-1.0); Blood Urea Nitrogen 8 mg/dL (9-16); Calcium 8.9 mg/dL (8.4-10.2); Carbon Dioxide 23 mmol/L (22-29); Chloride 106 mmol/L (96-108); Creatinine Clr Calc Pharmacy 111.8; Estimated Glomerular Filt Rate > 60; Glucose Random 126 mg/dL (60-115); Potassium 3.7 mmol/L (3.3-5.1); Sodium 141 mmol/L (135-145); Total Protein 6.9 g/dL (6.5-8.0)
[2021-11-12 20:22] LABS: COVID-19 Test Negative (Negative)
[2021-11-12 20:23] LABS: B Type Natriuretic Peptide < 10 pg/mL (<100); Troponin-I High Sensitivity < 3.5 ng/L (<3.5-17.0)
--- NOTE | 2021-11-12 23:18 | ED_ITS ---
HPI - Chest Pain General Chief Complaint: Chest Pain Stated Complaint: chest pain arms tingling Time Seen by Provider: 11/12/21 23:14 Source: patient Mode of arrival: ambulatory Limitations: no limitations History of Present Illness HPI narrative: 31-year-old female came in for evaluation of left upper abdominal/ left chest pain. Patient been getting left-sided chest / left upper quadrant pain on and off for a year, patient was evaluated for breast pain and had mammogram reportedly was unremarkable, patient also was evaluated by [employer] with a negative cardiac workup, pain is intermittent started about 8 hours ago today, patient was watching football, no event or stress, pain was localized in the left side of the chest and left upper quadrant abdominal area, patient do not have pain now, decline recent travel, no lower extremity swelling or tenderness. No trauma to the chest. Related Data Previous Rx's Medication Instructions Recorded cholecalciferol (vitamin D3) 25 25 mcg PO DAILY 90 days #90 caps 06/10/21 mcg (1,000 unit) capsule nicotine 14 mg/24 hr daily 1 patch transdermal DAILY #28 ea 06/18/21 transdermal patch cyclobenzaprine 5 mg tablet 5 - 10 mg PO Q12H PRN muscle spasm 10/29/21 30 days #30 tabs gabapentin 100 mg capsule 100 - 300 mg PO BEDTIME 30 days 10/29/21 #90 caps magnesium oxide 400 mg (241.3 mg 400 mg PO BEDTIME 30 days #30 tabs 10/29/21 magnesium) tablet riboflavin (vitamin B2) 400 mg 400 mg PO DAILY 30 days #30 tabs 10/29/21 tablet Allergies Allergy/AdvReac Type Severity Reaction Status Date / Time No Known Allergies Allergy Verified 10/29/21 08:00 Review of Systems Review of Systems: All other systems are reviewed and are negative Constitutional: Reports as per HPI and Reports no additional constitutional complaints Eyes: Reports as per HPI and Reports no additional eye complaints Reports system reviewed and no additional complaints, except as documented Cardiovascular: Reports as per HPI and Reports no additional cardiovascular com plaints Respiratory: Reports as per HPI and Reports no additional respiratory complaints Gastrointestinal: Reports as per HPI and Reports no additional gastrointestinal complaints Genitourinary: Reports no additional female genitourinary complaints Musculoskeletal: Reports no additional musculoskeletal complaints Skin/Breast: Reports system reviewed and no additional complaints, except as docu Psychiatric: Reports no additional psychiatric complaints Endocrine: Reports no additional endocrine complaints Hematologic/Lymphatic: Reports no additional hematologic/lymphatic complaints Allergic/Immunologic: Reports no additional allergic/immunologic complaints Reports system reviewed and no additional complaints, except as documented and Reports Abnormal speech present [facility] Past Medical History Medical History No known health problems Surgical History No pertinent past surgical history Family History Family History Mother Heart disease Father No problems noted. Other Mental health disorder Substance use disorder Social History Social History Housing: Apartment Alcohol intake: never Patient Tobacco Use Status: Current everyday Tobacco user Cigarette Packs Per Day: 0.5 Cigarettes Per Day: 10 Years Smoked: 15 +/- Advance Directives: No Advance Directives Information Provided: No Current occupational status: employed Physical Exam Vital Signs: Vital Signs: Last Vital Signs Temp 98.5 F 11/12/21 19:39 Pulse 87 11/12/21 23:37 Resp 21 H 11/12/21 23:37 BP 111/71 11/12/21 23:37 Pulse Ox 97 11/12/21 23:37 O2 Del Method 11/12/21 23:37 BMI result Body Mass Index 32.5 vital signs have been reviewed as appeared to be correct. Blood pressure normal. Heart rate normal. Respiration rate normal. Temperature normal. Ox ygen saturation normal. Appearance: Alert. Oriented X3. No acute distress. Head: Normal external exam. Normocephalic. Atraumatic. No López signs noted. No raccoon eyes noted Eyes: PERRLA. EOMI. Conjunctiva and sclera normal. Eyelids normal. ENT: TM's Normal. Pharynx normal. Uvula midline. Moist mucous membranes. No trismus noted. No drooling noted. No muffled voice noted. Neck: Normal inspection. Neck supple. FROM. No adenopathy. Thyroid Normal. No meningeal signs. No neck mass noted. CVS: Normal heart rate and rhythm. Heart sound normal. No murmurs noted. Pulses normal throughout. Respiratory: No respiratory distress. Painless inspiration. Breath sounds normal. No wheezes/rales/rhonchi noted. Chest nontender. No accessory muscle usage noted or decreased air movement noted. Abdomen: Soft and nontender. Bowel sounds normal in all 4 quadrants. No di stention noted. No organomegaly noted. No visible injury noted. Back: No CVA tenderness. Full range of motion noted. Skin: Skin warm and dry. Normal skin color. Normal skin turgor. No rashes/le sions/lacerations noted. Extremities: No lower extremity edema. Extremities exhibit normal range of motion. Extremities nontender. Neuro: Oriented X 3. Cranial nerve exam: II-XII are grossly intact No motor deficit. No sensory deficit. Reflexes normal. Course Course Course Narrative: 31-year-old female came in for evaluation of left-sided chest/left upper abdominal pain patient had previous cardiac evaluation by the [employer], patient the negative mammogram for concern left-sided pain. Had left-sided pain that lasted for about 5 minutes now patient is asymptomatic, patient has unremarkable vital signs, slight leukocytosis, labs was unrevealing today, CT abdomen pelvis shows no acute pathology. Will reassure the patient. MDM - Chest Pain Medical Records Data Attestation: I reviewed the patient's medical records. Lab Data Attestation: I reviewed the patient's lab results. Result diagrams: 11/12/21 19:53 11/12/21 19:53 Labs: Lab Results 11/12/21 11/12/21 11/12/21 Range/Units 19:53 19:53 19:53 WBC 11.4 H (4.8-10.8) X10*3/uL RBC 4.23 (4.20-5.50) X10*6/uL Hgb 12.6 (12.0-16.0) g/dl Hct 36.3 L (37.0-47.0) % MCV 85.8 (80.0-98.0) fL MCH 29.8 (27.0-33.0) pg MCHC 34.7 (31.0-35.0) g/dl RDW 12.7 (11.0-16.0) % Plt Count 270 (160-400) X10*3/uL MPV 11.1 (9.4-12.3) fL Immature Gran % (Auto) 0.6 H (0.0-0.4) % Neut % (Auto) 68.9 (45-73) % Lymph % (Auto) 21.6 (20-40) % Stoddard % (Auto) 5.9 (2-11) % Eos % (Auto) 2.6 (0-4) % Baso % (Auto) 0.4 (0-2) % Lymph # (Auto) 2.5 (1.2-4.9) X10*3/uL Stoddard # (Auto) 0.7 (0.1-1.2) X10*3/uL Eos # (Auto) 0.3 (0.0-0.4) X10*3/uL Baso # (Auto) 0.1 (0.0-0.2) X10*3/uL Abs Immat Gran (auto) 0.07 H (0.00-0.03) X10*3/uL Absolute Neuts (auto) 7.9 (2.0-8.3) x10*3/uL Absolute Nucleated RBC 0.000 (0.0-0.012) X10*3/uL Nucleated RBC % (auto) 0.0 (0.0-0.2) /100WBC Sodium 141 (135-145) mmol/L Potassium 3.7 (3.3-5.1) mmol/L Chloride 106 (96-108) mmol/L Carbon Dioxide 23 (22-29) mmol/L Anion Gap 16 (12-20) BUN 8 L (9-16) mg/dL Creatinine 0.76 (0.5-1.4) mg/dL Estim Creat Clear Calc 111.8 Estimated GFR > 60 Random Glucose 126 H (60-115) mg/dL Calcium 8.9 D (8.4-10.2) mg/dL Total Bilirubin 0.3 (0.0-1.0) mg/dL AST 32 H D (5-31) U/L ALT 49 H (0-31) U/L Alkaline Phosphatase 86 (39-117) U/L Troponin I High Sens < 3.5 (<3.5-17.0) ng/L B-Natriuretic Peptide < 10 (<100) pg/mL Total Protein 6.9 (6.5-8.0) g/dL Albumin 4.2 (3.5-5.0) g/dL Urine Color Urine Appearance Urine pH (5.0-8.0) Ur Specific [place] (1.005-1.025) Urine Protein (Neg-Trace) mg/dL Urine Glucose (UA) (Negative) mg/dL Urine Ketones (Negative) mg/dL Urine Blood (Negative) Urine Nitrite (Negative) Ur Leukocyte Esterase (Negative) Urine Test (NEGATIVE) COVID-19 (JIMENEZ) (Negative) COVID-19 Clin Com 11/12/21 11/12/21 11/12/21 Range/Units 19:53 23:43 23:43 WBC (4.8-10.8) X10*3/uL RBC (4.20-5.50) X10*6/uL Hgb (12.0-16.0) g/dl Hct (37.0-47.0) % MCV (80.0-98.0) fL MCH (27.0-33.0) pg MCHC (31.0-35.0) g/dl RDW (11.0-16.0) % Plt Count (160-400) X10*3/uL MPV (9.4-12.3) fL Immature Gran % (Auto) (0.0-0.4) % Neut % (Auto) (45-73) % Lymph % (Auto) (20-40) % Stoddard % (Auto) (2-11) % Eos % (Auto) (0-4) % Baso % (Auto) (0-2) % Lymph # (Auto) (1.2-4.9) X10*3/uL St[place]ard # (Auto) (0.1-1.2) X10*3/uL Eos # (Auto) (0.0-0.4) X10*3/uL Baso # (Auto) (0.0-0.2) X10*3/uL Abs Immat Gran (auto) (0.00-0.03) X10*3/uL Absolute Neuts (auto) (2.0-8.3) x10*3/uL Absolute Nucleated RBC (0.0-0.012) X10*3/uL Nucleated RBC % (auto) (0.0-0.2) /100WBC Sodium (135-145) mmol/L Potassium (3.3-5.1) mmol/L Chloride (96-108) mmol/L Carbon Dioxide (22-29) mmol/L Anion Gap (12-20) BUN (9-16) mg/dL Creatinine (0.5-1.4) mg/dL Estim Creat Clear Calc Estimated GFR Random Glucose (60-115) mg/dL Calcium (8.4-10.2) mg/dL Total Bilirubin (0.0-1.0) mg/dL AST (5-31) U/L ALT (0-31) U/L Alkaline Phosphatase (39-117) U/L Troponin I High Sens (<3.5-17.0) ng/L B-Natriuretic Peptide (<100) pg/mL Total Protein (6.5-8.0) g/dL Albumin (3.5-5.0) g/dL Urine Color Yellow Urine Appearance Clear Urine pH 6.5 (5.0-8.0) Ur Specific [place] 1.010 (1.005-1.025) Urine Protein Negative (Neg-Trace) mg/dL Urine Glucose (UA) Negative (Negative) mg/dL Urine Ketones Negative (Negative) mg/dL Urine Blood Negative (Negative) Urine Nitrite Negative (Negative) Ur Leukocyte Esterase Negative (Negative) Urine Test NEGATIVE (NEGATIVE) COVID-19 (JIMENEZ) Negative (Negative) COVID-19 Clin Com See Note Imaging Data Abdomen and pelvis CT: Attestation: I personally reviewed and interpreted this imaging study as follows: Radiologist's impression: no acute intra-abdominal pathology. ECG Data ECG #1: Attestation: I personally reviewed and interpreted this ECG as follows: Interpretation: normal sinus rhythm at 90 beats per minutes, normal axis deviation, normal intervals, nonspecific T-wave flattening and inversion, no change from previous EKG. Discharge Plan Discharge Clinical Impression: Atypical chest pain, Abdominal pain Patient Disposition: Home, Self-Care Instructions: Abdominal Pain (ED) Prescriptions: No Action cholecalciferol (vitamin D3) 25 mcg (1,000 unit) capsule 25 mcg PO DAILY 90 Days Qty: 90 0RF gabapentin 100 mg capsule 100 - 300 mg PO BEDTIME 30 Days Qty: 90 0RF Rx Instructions: start after EEG completed. magnesium oxide 400 mg (241.3 mg magnesium) tablet 400 mg PO BEDTIME 30 Days Qty: 30 6RF Rx Instructions: may hold for loose stools riboflavin (vitamin B2) 400 mg tablet 400 mg PO DAILY 30 Days Qty: 30 6RF cyclobenzaprine 5 mg tablet 5 - 10 mg PO Q12H PRN (Reason: muscle spasm) 30 Days Qty: 30 2RF nicotine 14 mg/24 hr patch 24 hour 1 patch transdermal DAILY Qty: 28 3RF Referrals: Paul Hooker MD [Physician] - [facility] [Primary Care Provider] - Stand Alone Forms: Work/School Release
[2021-11-12 23:37] VITALS: BP 111/71; PULSE 87; RESP 21; O2SAT 97
[2021-11-12 23:49] LABS: Appearance Urine Clear; Color Urine Yellow; Glucose Urine UA Negative (Negative); Leukocyte Esterase Urine Negative (Negative); Nitrite Urine Negative (Negative); PH 6.5 (5.0-8.0); Urine Blood Negative (Negative); Urine Ketones Negative (Negative); Urine Protein Negative (Neg-Trace)
[2021-11-12 23:50] LABS: UPreg QC Valid YES; Urine Pregnancy NEGATIVE (NEGATIVE)
== END 2021-11-13 01:57 | disposition home or self-care (01) ==
PROVIDERS: Emergency Provider Emergency Medicine
DX: R07.89 Other chest pain (principal); R10.12 Left upper quadrant pain; Z20.822 Contact with and (suspected) exposure to COVID-19; F17.210 Nicotine dependence, cigarettes, uncomplicated
CPT/HCPCS: 36415; 71046; 74176; 80053; 81003; 81025; 83880; 84484; 85025; 87635; 93005; 99284

== ENCOUNTER 2022-01-07 13:12 | Emergency (ER) | payer OTHER, SELFPAY ==
[2022-01-08 13:13] LABS: Influenza A PCR NEGATIVE (Negative); Influenza B PCR NEGATIVE (Negative); Resp Syncy Virus RNA Qual PCR NEGATIVE (Negative); SARS COV2 PCR INHOUSE NEGATIVE (Negative)
== END 2022-01-07 14:36 | disposition left against medical advice (07) ==
PROVIDERS: Nurse Practitioner Family; Emergency Provider Emergency Medicine; PCP Internal Medicine
DX: J06.9 Acute upper respiratory infection, unspecified (principal); Z20.822 Contact with and (suspected) exposure to COVID-19
CPT/HCPCS: 0241U

== ENCOUNTER → 2022-01-20 13:20 | Outpatient (REF) | payer OTHER, SELFPAY ==
--- NOTE | 2022-01-20 13:23 | HM_ITS ---
Conclusion: 1. Patient was monitored for total period of 1 day. 2. Baseline was normal sinus rhythm with average heart rate of 97 beats per minute 3. No significant pauses or bradycardia noted 4. Very rare PVCs noted 5. Patient reported 1 event correlated with sinus rhythm. MTDD
== END ==
LOC: HO.CARD 13:20
PROVIDERS: PCP Internal Medicine; Visit Provider Internal Medicine
DX: R00.2 Palpitations (principal)
CPT/HCPCS: 93226; 93242

== ENCOUNTER 2022-01-30 20:15 | Emergency (ER) | payer OTHER, SELFPAY ==
[2022-01-30 20:55] VITALS: BP 128/83; PULSE 84; RESP 16; TEMP 36.7; O2SAT 99; BMI 30.9
== END 2022-01-30 22:16 | disposition left against medical advice (07) ==
PROVIDERS: Emergency Provider Emergency Medicine
DX: R07.9 Chest pain, unspecified (principal)
CPT/HCPCS: 99281

== ENCOUNTER → 2022-02-19 08:04 | Outpatient (BNVA) | payer OTHER, SELFPAY | PROVIDERS: PCP Internal Medicine; Visit Provider Nurse Practitioner Family | DX: G43.009 Migraine without aura, not intractable, without status migrainosus (principal); M54.2 Cervicalgia; F41.1 Generalized anxiety disorder; R07.9 Chest pain, unspecified; R20.2 Paresthesia of skin; Z79.899 Other long term (current) drug therapy | CPT/HCPCS: 99212 ==

== ENCOUNTER 2022-03-14 05:59 | Emergency (ER) | payer OTHER, SELFPAY | END 2022-03-14 07:20 | disposition left against medical advice (07) | PROVIDERS: Emergency Provider Emergency Medicine | DX: R05.9 Cough, unspecified (principal); Z20.822 Contact with and (suspected) exposure to COVID-19 ==

== ENCOUNTER 2022-03-22 07:48 | Emergency (ER) | payer OTHER, SELFPAY ==
--- NOTE | ~2022-03-22 | XR_ITS ---
EXAMINATION: XR CHEST CLINICAL INFORMATION: Cough and fever COMPARISON: November 12, 2021 TECHNIQUE: 2 views of the chest were obtained. FINDINGS: No significant abnormality is noted involving the heart, lungs, mediastinum, bony thorax or soft tissues. XR/XR chest 2V IMPRESSION: No acute disease.
[2022-03-22 07:50] VITALS: BP 119/84; PULSE 110; RESP 18; TEMP 37.1; O2SAT 98; BMI 30.9
--- NOTE | 2022-03-22 08:38 | ED_ITS ---
HPI - URI/Sore Throat General Chief Complaint: Upper Respiratory Symptoms Stated Complaint: cough body aches Time Seen by Provider: 03/22/22 08:04 Source: patient Mode of arrival: ambulatory Limitations: no limitations History of Present Illness HPI Narrative: patient is a 31-year-old female who presents to the emergency department for evaluation of cough and body aches. Symptom onset was 3 days ago. Reports the cough to be nonproductive. Has associated lower chest discomfort with coughing and deep inspiration. States others in her home have been ill with similar symptoms recently. Denies fevers, chills, sore throat, difficulty breathing, shortness of breath, nausea, vomiting, abdominal pain, dysuria. Related Data Home Medications Medication Instructions Recorded Confirmed aspirin 81 mg tablet,delayed 81 mg PO DAILY 02/02/22 02/19/22 release cholecalciferol (vitamin D3) 25 25 mcg PO DAILY 02/02/22 02/19/22 mcg (1,000 unit) capsule omega 6-asu-qjr-fish oil 60 mg-90 1 cap PO DAILY 02/02/22 02/19/22 mg-500 mg capsule (Fish Oil) vitamin B12 gummies PO 02/02/22 02/19/22 Previous Rx's Medication Instructions Recorded amitriptyline 10 mg tablet 10 mg PO BEDTIME 30 days #30 tabs 02/19/22 cyclobenzaprine 10 mg tablet 10 mg PO BEDTIME 30 days #30 tabs 02/19/22 lorazepam 0.5 mg tablet 0.5 mg PO DAILY PRN anxiety 30 02/19/22 days #5 tabs magnesium oxide 400 mg (241.3 mg 400 mg PO BEDTIME 30 days #30 tabs 02/19/22 magnesium) tablet riboflavin (vitamin B2) 400 mg 400 mg PO DAILY 30 days #30 tabs 02/19/22 tablet Allergies Allergy/AdvReac Type Severity Reaction Status Date / Time No Known Allergies Allergy Verified 02/19/22 08:08 Review of Systems Review of Systems: Constitutional: no fever. no chills. No weakness. no fatigue. ENT/ Mouth: No Ear Pain, no Nasal Congestion, no sore throat, No Rhinorrhea, No Swallowing Difficulty Skin: No rash or itching. Cardiovascular: positive chest pain. No palpitations. Respiratory: No shortness of breath. Positive cough. No sputum production. Gastrointestinal: No nausea. No vomiting. No diarrhea. No abdominal pain. Genitourinary: No burning micturition. No urinary frequency. Neurologic: No headache. No dizziness. No syncope. No numbness or tingling in the extremities. Musculoskeletal: No muscle pain. No back pain. No joint pain or stiffness. Yes all other systems are reviewed and are negative PMFSH Past Medical History Attestation statement: The following information was validated with the patient. Source: old records reviewed Medical History No known health problems Surgical History No pertinent past surgical history Family History Family History Mother Heart disease Father No problems noted. Other Mental health disorder Substance use disorder Social History Social History Housing: Apartment Alcohol intake: never Patient Tobacco Use Status: Current everyday Tobacco user Cigarette Packs Per Day: 0.5 Cigarettes Per Day: 10 Years Smoked: 15 +/- Smoked in Last 30 Days: Yes e-Cigarette/Vaping Use: Never Used Use of substances other than those prescribed or required for medical reasons: Yes Substance Use Type: Marijuana Advance Directives: No Advance Directives Information Provided: No Current occupational status: employed Cognitive needs: No Hearing needs: No Vision needs: No Physical Exam Vital Signs: Vital Signs: Last Vital Signs Temp 98.7 F 03/22/22 07:50 Pulse 110 H 03/22/22 07:50 Resp 18 03/22/22 07:50 BP 119/84 03/22/22 07:50 Pulse Ox 98 03/22/22 07:50 O2 Del Method 03/22/22 07:50 BMI result Body Mass Index 30.9 Appearance: Alert.?Oriented to person, place and time. No acute distress.?Normal affect. Eyes: Pupils equal, round and reactive to light.? ENT: TM normal bilaterally. Pharynx normal.?? Neck: Normal inspection.? Neck supple.??No cervical adenopathy CVS: Heart sounds normal. Normal heart rate and rhythm.? Pulses normal.?? Respiratory: No respiratory distress.? Lung sounds clear to auscultation bilaterally?? Abdomen: Soft and non-tender. Normoactive bowel sounds. Skin: Skin warm and dry.? Normal skin color.? ? Extremities: No lower extremity edema.? Neuro: Moves all extremities spontaneously. Sensation intact bilaterally. No motor deficits. Ambulates with normal steady gait. Course Reevaluation(s) Reevaluation #1: COVID-19 testing is negative. Influenza A testing is positive; Outside of window for Tamiflu. Chest x-ray reveals No acute cardiopulmonary process. At this time history and physical exam not consistent with ACS/PE/pneumonia. Discussed conservative treatment including rest, hydration, Tylenol/ibuprofen as needed for fever and body aches, saline nasal spray, humidifier, [id number] cold medication. Advised to follow-up with primary care provider as needed, discussed reasons to return back to the emergency department. All questions were answered. Patient discharged home in stable condition. Provided with a return to work note. Medical Decision Making Medical Decision Making [facility] Narrative: Patient is a 31-year-old female with no reported past medical history, presenting for evaluation of upper respiratory symptoms. Well-appearing, nontoxic, afebrile, no tachypnea/hypoxia. initially mildly tachycardic with heart rate 110, at the time of my evaluation heart rate 88. Speaking clear full sentences, ambulatory with steady gait. Suspect viral etiology given ill contacts in the home. Chest x-ray, viral testing ordered. Differential Diagnosis Differential Diagnoses: The differential diagnosis associated with the presentation includes ( COVID- 19, influenza, viral upper respiratory infe ction, pneumonia) Lab Data [facility] Lab Attestation statement: I reviewed the patient's lab results. Labs: Lab Results 03/22/22 03/22/22 Range/Units 08:05 08:05 COVID-19 (JIMENEZ) Negative (Negative) COVID-19 Clin Com See Note Influenza Type A (SHERITA) Positive A (Negative) Influenza Type B (SHERITA) Negative (Negative) Influenza A & B Note See Note Independent Interpretation I performed an independent interpretation of an: Plain X-Ray Interpretation: I personally interpreted chest x-ray and agree with the radiologist's findings. Radiology Impression Discussion of test interpretation with radiology: I have reviewed the radiologist's reading. Radiologist Impression: XR/XR chest 2V IMPRESSION: No acute disease. Prescription Management I considered prescription management with: Antiviral ( I considered treatment with Tamiflu, however patient has been symptomatic for greater than 72 hours, would not be a candidate at this time.) Discharge Plan Discharge Clinical Impression: Influenza A Patient Disposition: Home, Self-Care Instructions: Influenza (ED) Additional Instructions: Be sure to rest, stay well hydrated drinking plenty of fluids, eat small frequent meals. Tylenol/ibuprofen can be used as needed for fever/pain. Xfkk-fjs-wvrfjji cold medications may be helpful as well for symptoms. Saline nasal spray, humidifier may be helpful for nasal congestion. You may return to the emergency department with any new or worsening symptoms or concerns. Follow-up with your primary care provider as needed. Should remain out of school/ work until symptoms have resolved and have been without a fever for 24 hours without the use of Tylenol or ibuprofen. Prescriptions: No Action omega 0-tko-awd-fish oil [Fish Oil] 60-90-500 mg capsule 1 cap PO DAILY vitamin B12 gummies PO cholecalciferol (vitamin D3) 25 mcg (1,000 unit) capsule 25 mcg PO DAILY aspirin 81 mg tablet,delayed release (DR/EC) 81 mg PO DAILY amitriptyline 10 mg tablet 10 mg PO BEDTIME 30 Days Qty: 30 3RF lorazepam 0.5 mg tablet 0.5 mg PO DAILY PRN (Reason: anxiety) 30 Days Qty: 5 3RF riboflavin (vitamin B2) 400 mg tablet 400 mg PO DAILY 30 Days Qty: 30 6RF magnesium oxide 400 mg (241.3 mg magnesium) tablet 400 mg PO BEDTIME 30 Days Qty: 30 6RF Rx Instructions: may hold for loose stools cyclobenzaprine 10 mg tablet 10 mg PO BEDTIME 30 Days Qty: 30 3RF Referrals: [facility] [Primary Care Provider] - Stand Alone Forms: Work/School Release Interventions: ED Discharge Assessment Last Done: 03/22/22 10:02 Discharge Date/Time: 03/22/22 10:03
[2022-03-22 08:42] LABS: IDNOW Serial# 9DB6401D; Influenza A Positive (Negative); Influenza B2 Negative (Negative)
[2022-03-22 08:44] LABS: COVID-19 Test Negative (Negative); IDNOW Serial# 16C4AD1C
== END 2022-03-22 10:03 | disposition home or self-care (01) ==
PROVIDERS: Emergency Provider Student in an Organized Health Care Education/Training Program
DX: J11.1 Influenza due to unidentified influenza virus with other respiratory manifestations (principal); Z20.822 Contact with and (suspected) exposure to COVID-19; F17.200 Nicotine dependence, unspecified, uncomplicated; F12.90 Cannabis use, unspecified, uncomplicated
CPT/HCPCS: 71046; 87502; 87635; 99283; 99284

== ENCOUNTER → 2022-04-22 08:02 | Outpatient (BNVA) | payer OTHER, SELFPAY | PROVIDERS: Visit Provider Nurse Practitioner Family | DX: G43.009 Migraine without aura, not intractable, without status migrainosus (principal); F41.1 Generalized anxiety disorder; R20.2 Paresthesia of skin | CPT/HCPCS: 99212 ==

== ENCOUNTER → 2022-08-23 07:50 | Outpatient (BNVA) | payer OTHER, SELFPAY | PROVIDERS: Visit Provider Nurse Practitioner Family | DX: G43.009 Migraine without aura, not intractable, without status migrainosus (principal); R20.2 Paresthesia of skin | CPT/HCPCS: 99212 ==

== ENCOUNTER 2022-11-06 22:07 | Emergency (ER) | payer OTHER, SELFPAY ==
[2022-11-06 22:18] VITALS: BP 113/77; PULSE 88; RESP 16; TEMP 36.6; O2SAT 98; BMI 31.0
[2022-11-07 00:24] LABS: Appearance Urine Cloudy; Color Urine Yellow; Glucose Urine UA Negative (Negative); Leukocyte Esterase Urine Trace (Negative); Nitrite Urine Negative (Negative); PH 5.5 (5.0-9.0); Specific Gravity - Urine 1.025 (1.005-1.025); UMIC TRIGGER UACC YES; Urine Blood Negative (Negative); Urine Ketones Trace mg/dL (Negative); Urine Protein Negative (Neg-Trace)
[2022-11-07 00:28] LABS: Bacteria Urine 4+ (None Seen); Hyaline Casts Urine 0-2 /LPF (0-2); Squamous Epithelial Cell Urine >20 /HPF (0-2); UACC Culture Trigger YES
[2022-11-07 00:30] LABS: UPreg QC Valid YES; Urine Pregnancy NEGATIVE (NEGATIVE)
--- NOTE | 2022-11-07 01:01 | ED_ITS ---
HPI - Female Genitourinary General Chief complaint: Urogenital-Female Stated complaint: ?std Time Seen by Provider: 11/07/22 00:59 Source: patient, RN notes reviewed and old records reviewed Mode of arrival: ambulatory Limitations: no limitations History of Present Illness HPI Narrative: 32-year-old female presents for evaluation of ?I think my ex-boyfriend gave me gonorrhea. ? The patient reports that she has been having intermittent pains into her groin for approximately 1 week She has some occasional burning and itching. She denies any significant discharge Patient reports that she last had unprotected sex with her ex-boyfriend about 2 weeks ago She reports that she has had gonorrhea in the past and this feels similar She states that she does not have any burning with urination specifically No fevers or chills Related Data Previous Rx's Medication Instructions Recorded amitriptyline 10 mg tablet 10 mg PO BEDTIME 30 days #30 tabs 08/23/22 cyclobenzaprine 10 mg tablet 10 mg PO BEDTIME 30 days #30 tabs 08/23/22 lorazepam 0.5 mg tablet 0.5 mg PO DAILY PRN anxiety 30 08/23/22 days #5 tabs doxycycline hyclate 100 mg tablet 100 mg PO BID #27 tabs 11/07/22 Allergies Allergy/AdvReac Type Severity Reaction Status Date / Time No Known Allergies Allergy Verified 08/23/22 07:59 Review of Systems Constitutional: Constitutional: Denies chills and Denies fever(s) Cardiovascular: Cardiovascular: Denies chest pain and Denies dyspnea Respiratory: Respiratory: Denies cough and Denies dyspnea Gastrointestinal: Gastrointestinal: Denies abdominal pain, Denies nausea and Denies vomiting Genitourinary: Genitourinary: Denies abnormal menses, Denies abnormal vaginal bleeding, Denies vaginal discharge and Reports other (pelvic pain) Musculoskeletal: Musculoskeletal: Denies back pain PMFSH Past Medical History Medical History No known health problems Surgical History No pertinent past surgical history Family History Family History Mother Heart disease Father No problems noted. Other Mental health disorder Substance use disorder Social History Social History (Updated 08/23/22 @ 08:04 by Sherice Fernando CMA) Housing: Apartment Alcohol intake: current Alcohol intake frequency: holidays/special occasions only Patient Tobacco Use Status: Current everyday Tobacco user Cigarette Packs Per Day: 0.5 Cigarettes Per Day: 10 Years Smoked: 15 +/- e-Cigarette/Vaping Use: Never Used Substance Use Type: Marijuana Advance Directives: No Advance Directives Information Provided: Yes Current occupational status: employed Cognitive needs: No Hearing needs: No Vision needs: No Physical Exam Vital Signs: Vital Signs: Last Vital Signs Temp 97.9 F 11/06/22 22:18 Pulse 88 11/06/22 22:18 Resp 16 11/06/22 22:18 BP 113/77 11/06/22 22:18 Pulse Ox 98 11/06/22 22:18 O2 Del Method Room Air 11/06/22 22:18 BMI result Body Mass Index 31.0 Const: General: healthy appearing, comfortable, no acute distress, alert and awake Nutritional Appearance: well nourished Orientation/consciousness: patient oriented x3 HEENT: Head: Yes normocephalic and Yes atraumatic Eyes: Eyelids: Yes eyelids normal Conjunctivae: conjunctivae normal Sclerae: sclerae normal Corneas: corneas normal Pupils: Equal, round and reactive pupils present EOM: EOMs intact bilaterally Neck: Neck: Yes full ROM Resp: Effort & Inspection: normal respiratory effort, able to speak in complete sentences and not labored GI: Inspection: No distended Palpation (GI): Soft to palpation, not firm, nontender, no guarding and not rigid Skin: General skin exam: no rashes or lesions noted and elasticity normal Neuro: General: patient oriented x3 Cranial nerves: Yes Equal, round and reactive pupils present and Yes Bilaterally intact EOM present Cognition (Neuro): normal cognition Medical Decision Making Medical Decision Making MDM Narrative: 32-year-old female presents for evaluation of vaginal pain. She believes that she was exposed to gonorrhea. Patient was offered pelvic examination with pelvic swabs but declined. She gave a urine sample that was sent for gonorrhea and chlamydia. The patient would prefer empiric treatment. Her vitals are stable and she is well-appearing, low suspicion for PID or systemic infection Differential Diagnosis Differential Diagnoses: The differential diagnosis associated with the presentation includes Gonorrhea exposure Chlamydia exposure UTI Cystitis PID Lab Data Labs: Lab Results 11/06/22 11/06/22 Range/Units 23:47 23:47 Urine Color Yellow Urine Appearance Cloudy Urine pH 5.5 (5.0-9.0) Ur Specific [place] 1.025 (1.005-1.025) Urine Protein Negative (Neg-Trace) mg/dL Urine Glucose (UA) Negative (Negative) mg/dL Urine Ketones Trace (Negative) mg/dL Urine Blood Negative (Negative) Urine Nitrite Negative (Negative) Ur Leukocyte Esterase Trace H (Negative) Urine RBC 3-5 H (0-2) /HPF Urine WBC 11-20 H (0-5) /HPF Ur Squamous Epith Cells >20 (0-2) /HPF Urine Bacteria 4+ (None Seen) Hyaline Casts 0-2 (0-2) /LPF Urine Test NEGATIVE (NEGATIVE) Discharge Plan Discharge Clinical Impression: Encounter for assessment of STD exposure Patient Disposition: Home, Self-Care Instructions: Gonorrhea (ED) Additional Instructions: Your treated for both gonorrhea and chlamydia. We will call you if either of these results come back positive. Take doxycycline twice daily the total of 14 days You should not have any sexual intercourse until you complete your antibiotics Follow-up with your primary doctor Prescriptions: New doxycycline hyclate 100 mg tablet 100 mg PO BID Qty: 27 0RF No Action cyclobenzaprine 10 mg tablet 10 mg PO BEDTIME 30 Days Qty: 30 3RF amitriptyline 10 mg tablet 10 mg PO BEDTIME 30 Days Qty: 30 3RF lorazepam 0.5 mg tablet 0.5 mg PO DAILY PRN (Reason: anxiety) 30 Days Qty: 5 3RF
[2022-11-07] MEDS: cefTRIAXone sodium 500 MG, Lidocaine HCl 1 % MPF 1 ML IM (01:21)
[2022-11-07] MEDS: Doxycycline Monohydrate 100 MG CAPSULE PO (01:21)
[2022-11-07 01:27] VITALS: BP 116/73; PULSE 98; RESP 16; TEMP 36.4; O2SAT 100
[2022-11-07 02:57] LABS: CT PCR NOT DETECTED (Not Detect.); NG PCR NOT DETECTED (Not Detect.)
== END 2022-11-07 01:29 | disposition home or self-care (01) ==
PROVIDERS: Emergency Provider Internal Medicine; PCP Internal Medicine
DX: R10.2 Pelvic and perineal pain (principal); R30.0 Dysuria; F17.210 Nicotine dependence, cigarettes, uncomplicated; Z20.2 Contact with and (suspected) exposure to infections with a predominantly sexual mode of transmission; Z71.6 Tobacco abuse counseling; Z79.899 Other long term (current) drug therapy
CPT/HCPCS: 0353U; 81001; 81025; 87086; 99283; 99284; J0696

== ENCOUNTER 2022-12-22 12:46 | Outpatient (AMB) | payer OTHER, SELFPAY ==
--- NOTE | 2022-12-22 12:58 | A.OFFPC_ITS ---
Vital Signs 12/22/22 12:59 Height 5 ft 4 in Weight 177 lb 6 oz BMI 30.4 BP 118/76 Blood Pressure Location Lt brachial Position Sitting Pulse 98 Pulse Source Pulse Oximeter Pulse Oximetry (%) 99 Oxygen Delivery Method Room Air Intake Visit Reasons: [facility] [place], 11/07, kidney infection Allergies No Known Allergies Allergy (Verified 12/22/22 12:59) Medication List - Last Reconciled 12/22/22 by Cherry Vogel MD amitriptyline 10 mg PO BEDTIME 30 days cyclobenzaprine 10 mg PO BEDTIME 30 days lorazepam 0.5 mg PO DAILY PRN 30 days Tobacco use date assessed: 12/22/22 Dental Screening Dental Screen Date: 12/22/22 Did you have a dental visit in the last 12 months?: Yes Did you have a dental problem in the last 6 months where you did not have access to dental care?: No Was dental information given to patient?: Patient has dentist HPI [facility] [place], 11/07, kidney infection HPI Details Patient is a 32-year-old female came in today to talk about few medical problems Patient says that she got sick a week ago with sore throat and dry cough which now has turned into a productive cough of ojhnny sputum She is having pain back upper part because of coughing. Also having soreness in her both ears. She also continued to smoke half a pack per day we talked about that again she is willing to try Nicoderm patches which I have sent for her Patient was instructed not to smoke while she has a patch on. The whole purpose of starting her on patches is to break her habit of smoking. She is also requesting another order for physical therapy lower back. Which I have provided for her We will book a follow-up appointment in 2 weeks to see how she is doing with patches and also with chest congestion. I am treating her with azithromycin and 5 days of 10 mg prednisone. [facility] Medical History No known health problems Surgical History No pertinent past surgical history Family History Mother Heart disease Father No problems noted. Other Mental health disorder Substance use disorder Social History Housing: Apartment Alcohol intake: never Patient Tobacco Use Status: Current everyday Tobacco user Cigarette Packs Per Day: 0.5 Cigarettes Per Day: 10 Years Smoked: 15 +/- e-Cigarette/Vaping Use: Never Used Substance Use Type: Marijuana Current occupational status: employed Cognitive needs: No Hearing needs: No Vision needs: No Questionnaire PHQ-9 Over the last 2 weeks, how often have you been bothered by any of the following problems? 1. Little interest or pleasure in doing things: not at all 2. Feeling down, depressed, or hopeless: not at all 3. Trouble falling or staying asleep, or sleeping too much: not at all 4. Feeling tired or having little energy: several days 5. Poor appetite or overeating: not at all 6. Feeling bad about yourself - or that you are a failure or have let yourself or your family down: not at all 7. Trouble concentrating on things, such as reading the newspaper or watching television: not at all 8. Moving or speaking so slowly that other people could have noticed. Or the opposite - being so fidgety or restless that you have been moving around a lot more than usual: not at all 9. Thoughts that you would be better off or of hurting yourself in some way: not at all Total score: 1 Depression Screening Interpretation: Negative Depression Screening Done: Yes 11943 - PHQ-9 Billing: Yes Source: Developed by Drs. Velasquez Parmar, Ania Saab, Billy Strong and colleagues, with an educational umesh from [employer]. Thrive Questionnaire Date Thrive assessed: 12/22/22 I am a: Patient What is your living situation today?: I have a steady place to live Within the past 12 months, did the food you bought not last and you didn't have the money to get more?: Sometimes True Within the past 12 months, did you worry whether your food would run out before you got money to buy more?: Never true Do you have trouble paying for medicines?: Yes Do you have trouble getting transportation to medical appointments?: No Do you have trouble paying your heating and electricity bill?: Yes Do you have trouble taking care of your child, family member or friend?: No Do you have trouble with day-to-day activities such as bathing, preparing meals, shopping, managing finances, etc.?: Yes Are you currently unemployed and looking for a job?: No Are you interested in more education?: No AUDIT C Alcohol Use Questionnaire (AUDIT-C) 1. How often do you have a drink containing alcohol?: Never 3. How often do you have six or more drinks on one occasion?: Never Total Score: 0 Score Reviewed/Action Taken: Yes KVNG-7 AMB Questionnaire KVNG-7 Date KVNG - 7 assessed: 12/22/22 Feeling nervous, anxious, or on edge: 0 = Not at all Not being able to stop or control worryin = Not at all Worrying too much about different things: 0 = Not at all Trouble relaxin = Not at all Being so restless that it is hard to sit still: 0 = Not at all Becoming easily annoyed or irritable: 1 = Several days Feeling afraid as if something awful might happen: 0 = Not at all Total KVNG-7 score (0-4 normal; 5-9 mild; 10-14 moderate; 15-21 severe): 1 Source: Developed by Drs. Velasquez Parmar, Ania Saab, Billy Strogn and colleagues, with an educational umesh from [employer]. KVNG-7 Assessment Billing KVNG-7 Assessment Tool: KVNG-7 Assessment 46261 Review of Systems Const Reports as per HPI Eyes Denies change in vision ENT Denies bleeding gums, Denies dental pain, Denies ear discharge and Denies mouth pain Card Denies chest pain at rest, Denies chest pain with activity, Denies syncope and Denies irregular heart rhythm Resp Denies hemoptysis and Denies stridor GI Denies diarrhea and Denies vomiting Musc Denies as per HPI Skin/Breast Denies skin ulcer and Denies sores Neuro Denies syncope and Denies memory loss Psych Denies memory loss, Denies homicidal ideation and Denies suicidal ideation Physical exam (Primary Care) Vital Signs: Last Vital Signs Pulse 98 12/22/22 12:59 BP 118/76 12/22/22 12:59 Pulse Ox 99 12/22/22 12:59 Oxygen Delivery Method Room Air 12/22/22 12:59 BMI result Body Mass Index 30.4 Tobacco/Smoking Status: Tobacco use Status Tobacco use date assessed 12/22/22 12/22/22 13:05 Patient Tobacco Use Status Current everyday Tobacco 12/22/22 13:05 e-Cigarette/Vaping Use Never Used 12/22/22 13:05 Are you ready to quit: Yes Tobacco cessation counseling provided: Yes Relapse Prevention: discussed the importance of a supportive environment and discussed dietary, exercise and/or lifestyle changes CPT code: 90583 - 4-10 Minutes PHQ-9: PHQ-9 Score PHQ-9: Total score 1 12/22/22 13:44 Depression Screening Interpretation: Negative Thrive Assessment: Date of Thrive Assessment Date Thrive assessed 12/22/22 12/22/22 13:44 Const General: cooperative and comfortable Orientation/consciousness: patient oriented x3 HENMT Head: Yes normocephalic and Yes atraumatic Ears: external ears normal General nose exam: Normal external nose present Mouth: Normal oral and palatal mucosa present Eyes Eyelids: Yes eyelids normal Pupils: Equal, round and reactive pupils present EOM: EOMs intact bilaterally Neck Neck: Yes trachea midline and Yes supple Resp Auscultation: clear to auscultation bilaterally Cardio Heart sounds: S1 normal heart sound present and S2 normal heart sound present GI Auscultation: normal bowel sounds Skin General skin exam: elasticity normal and turgor normal Neuro General: patient oriented x3 and moves all extremities Cranial nerves: Yes Equal, round and reactive pupils present Gait exam (Neuro): Normal gait present Extrem Right upper extremity: no edema Psych Mental Status: mental status grossly normal Assessment and Plan Assessment & Plan (1) Acute bronchitis: Code(s): J20.9 - Acute bronchitis, unspecified Qualifiers: Bronchitis organism: other organism Qualified Code(s): J20.8 - Acute bronchitis due to other specified organisms (2) Lumbar pain: Code(s): M54.50 - Low back pain, unspecified (3) Tobacco abuse: Code(s): Z72.0 - Tobacco use (4) Tobacco abuse counseling: Code(s): Z71.6 - Tobacco abuse counseling Plan Patient is a 32-year-old female came in today to talk about few medical problems Patient says that she got sick a week ago with sore throat and dry cough which now has turned into a productive cough of johnny sputum She is having pain back upper part because of coughing. Also having soreness in her both ears. She also continued to smoke half a pack per day we talked about that again she is willing to try Nicoderm patches which I have sent for her Patient was instructed not to smoke while she has a patch on. The whole purpose of starting her on patches is to break her habit of smoking. She is also requesting another order for physical therapy lower back. Which I have provided for her We will book a follow-up appointment in 2 weeks to see how she is doing with patches and also with chest congestion. I am treating her with azithromycin and 5 days of 10 mg prednisone. Orders: Orders PT Evaluation and Treatment Today M54.50 - Low back pain, unspecified Medications: New azithromycin Take 2 tablets today then 1 daily 250 mg PO ONCE 6 tabs 0RF 5 days J06.9 - A cute upper respiratory infection, unspecified nicotine (Nicoderm CQ) 1 patch transdermal DAILY 28 ea 0RF prednisone 10 mg PO DAILY 5 tabs 0RF 5 days Coding Level of Care Code Est Pt Level 4 (62115) Diagnoses Acute bronchitis due to other specified organisms J20.8 Bronchitis organism: other organism Lumbar pain M54.50 Tobacco abuse Z72.0 Tobacco abuse counseling Z71.6 Additional Codes KVNG-7 Assessment Billing - KVNG-7 Assessment Tool: KVNG-7 Assessment 09024 ([id number]) Vital Signs *Quality* - CPT code: 22429 - 4-10 Minutes ([id number])
[2022-12-22 12:59] VITALS: BP 118/76; PULSE 98; O2SAT 99; BMI 30.4
== END 2022-12-22 14:08 | disposition home or self-care (01) ==
PROVIDERS: PCP Internal Medicine; Visit Provider Internal Medicine
DX: J20.8 Acute bronchitis due to other specified organisms (principal); M54.50 Low back pain, unspecified; Z72.0 Tobacco use; Z71.6 Tobacco abuse counseling
CPT/HCPCS: 99214

== ENCOUNTER 2022-12-29 10:52 | Outpatient (RCR) | payer OTHER, SELFPAY ==
--- NOTE | 2022-12-29 14:39 | MHC.PT.EP ---
[facility] [place] [facility] [place] Office [place] Office [address] Emilee Hearn [address] [phone] F: [phone] F: [phone] F: [phone] F: [phone] Physical Therapy Plan of Care Date of Evaluation: 12/29/22 Date of Surgery: Diagnosis: LBP unspecified. Assessment: Pt is a 32 y/o female referred to PT for non specific back pain who presents with spinal instability resulting in decreased tolerance for static postures, sitting and standing for duration, as well as turning her head to the L while driving secondary to decreased core, hip, and cervical strength, decreased cervical ROM in flexion and L rotation, + prone instability test, decreased posture, increased lumbar and cervical tissue tension, and pain. Pt is deemed an appropriate candidate to receive skilled PT services in order to address her physical impairments to improve her functional ability. Frequency and Duration: The patient will be seen 2 x / wk x 4 wks. Short Term Goals: Initiate Home program. Pt no longer painful with L cervical rotation. [employer] Goals: I with HEP. improve core strength by at least 1/2 MMT grade; initial: 4/5 Pt will be able to tolerate sitting > 1/2 hour with managed Sx; initial: sitting prevents me from sitting at all. Pt Will improve Jose by at least 13 points. Treatment Plan: Modalities to reduce pain, spasms and effusion. Manual therapy to restore motion and function. Therapeutic exercise to improve strength and flexibility. Neuromuscular re-education for posture and balance. Therapeutic activities to return to functional activities of daily living. Electronically signed by: Cr Scanlon PT. Please sign and return to therapist. Thank you for your referral.
--- NOTE | 2023-08-11 16:01 | MHC.PT.DC ---
[facility] [place] [facility] [place] [facility] [place] [facility] [address] Emilee Hearn [address] [phone] F: [phone] F: [phone] F: [phone] F: [phone] Physical Therapy Discharge Report Diagnosis: LBP unspecified. Date of Surgery: Date of Evaluation: 12/29/22 Date of Discharge: 08/11/23 Treatments to Date: 1 Cancellations to Date: No Shows to Date: 1 Discharge Status: Discharge Summary: Pt did not trial PT Electronically signed by: Cr Scanlon PT. Please sign and return to therapist. Thank you for your referral.
== END 2023-08-11 15:59 | disposition home or self-care (01) ==
LOC: HO.PTCHIC 10:52
PROVIDERS: PCP Internal Medicine; Visit Provider Internal Medicine
DX: M54.50 Low back pain, unspecified (principal)
CPT/HCPCS: 97110; 97161

== ENCOUNTER 2022-12-31 17:39 | Emergency (ER) | payer OTHER, SELFPAY ==
[2022-12-31 18:18] VITALS: BP 126/85; PULSE 107; RESP 18; TEMP 36.6; O2SAT 97; BMI 30.2
--- NOTE | 2022-12-31 18:21 | ED_ITS ---
HPI - General Adult General Chief complaint: Vaginal Bleeding Stated complaint: Vaginal bleeding/Preg Time Seen by Provider: 12/31/22 20:46 Source: patient, RN notes reviewed and old records reviewed Mode of arrival: ambulatory Limitations: no limitations History of Present Illness HPI narrative: 32-year-old female presents for evaluation of vaginal bleeding. Her symptoms started 1 week ago She states that she has had clots. She take a test last night that was ?positive. ? Denies any abdominal pain Her last menstrual cycle was November 07 Related Data Previous Rx's Medication Instructions Recorded amitriptyline 10 mg tablet 10 mg PO BEDTIME 30 days #30 tabs 08/23/22 cyclobenzaprine 10 mg tablet 10 mg PO BEDTIME 30 days #30 tabs 08/23/22 lorazepam 0.5 mg tablet 0.5 mg PO DAILY PRN anxiety 30 08/23/22 days #5 tabs azithromycin 250 mg tablet 250 mg PO ONCE 5 days #6 tabs 12/22/22 nicotine 21 mg/24 hr daily 1 patch transdermal DAILY #28 ea 12/22/22 transdermal patch (Nicoderm CQ) prednisone 10 mg tablet 10 mg PO DAILY 5 days #5 tabs 12/22/22 Allergies Allergy/AdvReac Type Severity Reaction Status Date / Time No Known Allergies Allergy Verified 12/22/22 12:59 Review of Systems 2 Constitutional: Constitutional: Denies headache(s) ENT: Denies headache(s) Cardiovascular: Cardiovascular: Denies dyspnea Respiratory: Respiratory: Denies cough and Denies dyspnea Gastrointestinal: Gastrointestinal: Denies abdominal pain, Denies nausea and Denies vomiting Genitourinary: Comments: reports vaginal bleeding Neurologic: Denies headache(s) [facility] Past Medical History Medical History No known health problems Surgical History No pertinent past surgical history Family History Family History Mother Heart disease Father No problems noted. Other Mental health disorder Substance use disorder Social History Social History Housing: Apartment Alcohol intake: never Patient Tobacco Use Status: Current everyday Tobacco user Cigarette Packs Per Day: 0.5 Cigarettes Per Day: 10 Years Smoked: 15 +/- e-Cigarette/Vaping Use: Never Used Substance Use Type: Marijuana Current occupational status: employed Cognitive needs: No Hearing needs: No Vision needs: No Physical Exam ED Vital Signs: Vital Signs - 24 hr 12/31/22 18:18 Temperature 97.8 F Pulse Rate 107 H Respiratory Rate 18 Blood Pressure 126/85 Pulse Oximetry 97 Oxygen Delivery Method Room Air BMI result Body Mass Index 30.2 Const General: healthy appearing, comfortable, no acute distress, alert and awake Nutritional Appearance: well nourished Orientation/consciousness: patient oriented x3 HENMT Head: Yes normocephalic and Yes atraumatic Eyes Eyelids: Yes eyelids normal Conjunctivae: conjunctivae normal Sclerae: sclerae normal Corneas: corneas normal Pupils: Equal, round and reactive pupils present EOM: EOMs intact bilaterally Resp Effort & Inspection: normal respiratory effort, able to speak in complete sentences and not labored GI Inspection: No distended Palpation (GI): Soft to palpation, not firm, nontender, no guarding and not rigid Skin General skin exam: no rashes or lesions noted and elasticity normal Neuro General: patient oriented x3 Cranial nerves: Yes Equal, round and reactive pupils present and Yes Bilaterally intact EOM present Cognition (Neuro): normal cognition Extrem Other: Moving all extremities well without any obvious deformities Course Course Course Narrative: RME- 32 year old female presents for evaluation of vaginal bleeding. Patient reports blood clots for the last week and she took a test last night that was reportedly positive. Plan for labs, UA, ultrasound. Patient would be Medical Decision Making Medical Decision Making MDM Narrative: 32-year-old female presents for evaluation of vaginal bleeding and reported positive test. I ordered labs that were significant for an hCG of 11. Therefore I canceled the ultrasound, as this is not adequate enough to be able to visualize a gestational sac. The patient has no pain, so I have a very low suspicion for ectopic . She is Rh positive. I discussed with the patient that she should repeat hCG test in 4 days but it is likely that she is having a miscarriage. Patient will follow-up with PCP Differential Diagnosis Differential Diagnoses: The differential diagnosis associated with the presentation includes Threatened Spontaneous Ectopic Vaginal bleeding Lab Data 12/31/22 18:39 12/31/22 18:39 Labs: Lab Results 12/31/22 12/31/22 Range/Units 18:39 19:54 WBC 13.3 H (4.8-10.8) X10*3/uL RBC 4.43 (4.20-5.50) X10*6/uL Hgb 13.6 (12.0-16.0) g/dl Hct 39.0 (37.0-47.0) % MCV 88.0 (80.0-98.0) fL MCH 30.7 (27.0-33.0) pg MCHC 34.9 (31.0-35.0) g/dl RDW 12.7 (11.0-16.0) % Plt Count 293 (160-400) X10*3/uL MPV 10.9 (9.4-12.3) fL Immature Gran % (Auto) 0.5 H (0.0-0.4) % Neut % (Auto) 74.1 H (45-73) % Lymph % (Auto) 18.5 L (20-40) % [place] % (Auto) 5.4 (2-11) % Eos % (Auto) 1.1 (0-4) % Baso % (Auto) 0.4 (0-2) % Lymph # (Auto) 2.5 (1.2-4.9) X10*3/uL [place] # (Auto) 0.7 (0.1-1.2) X10*3/uL Eos # (Auto) 0.2 (0.0-0.4) X10*3/uL Baso # (Auto) 0.1 (0.0-0.2) X10*3/uL Abs Immat Gran (auto) 0.06 H (0.00-0.03) X10*3/uL Absolute Neuts (auto) 9.9 H (2.0-8.3) x10*3/uL Absolute Nucleated RBC 0.000 (0.0-0.012) X10*3/uL Nucleated RBC % (auto) 0.0 (0.0-0.2) /100WBC PT 11.0 L (11.1-13.3) SEC INR 0.9 (0.9-1.1) APTT 28.8 (26.0-36.4) SEC Sodium 142 (135-145) mmol/L Potassium 3.9 (3.3-5.1) mmol/L Chloride 108 (96-108) mmol/L Carbon Dioxide 21 L (22-29) mmol/L Anion Gap 17 (12-20) BUN 7 L (9-16) mg/dL Creatinine 0.71 (0.5-1.4) mg/dL Estim Creat Clear Calc 114.2 Estimated GFR > 60 Random Glucose 106 (60-115) mg/dL Calcium 10.0 D (8.4-10.2) mg/dL Total Bilirubin 0.4 (0.0-1.0) mg/dL AST 28 (5-31) U/L ALT 45 H (0-31) U/L Alkaline Phosphatase 80 (39-117) U/L Total Protein 8.0 (6.5-8.0) g/dL Albumin 4.7 (3.5-5.0) g/dL Lipase 44 (8-78) U/L Beta HCG, Quant 11 mIU/mL Urine Color Yellow Urine Appearance Clear Urine pH 7.5 (5.0-9.0) Ur Specific [place] <= 1.005 (1.005-1.025) Urine Protein Negative (Neg-Trace) mg/dL Urine Glucose (UA) Negative (Negative) mg/dL Urine Ketones Negative (Negative) mg/dL Urine Blood Moderate (2+) H (Negative) Urine Nitrite Negative (Negative) Ur Leukocyte Esterase Negative (Negative) Urine RBC 3-5 H (0-2) /HPF Urine WBC 0-5 (0-5) /HPF Ur Squamous Epith Cells 0-2 (0-2) /HPF Urine Bacteria None Seen (None Seen) Hyaline Casts 0-2 (0-2) /LPF Blood Type A Positive Discharge Plan Discharge Clinical Impression: Threatened miscarriage Patient Disposition: Home, Self-Care Instructions: Threatened Miscarriage (ED) Additional Instructions: Your hormone was only 11. This me it is either extremely early in your or your having a miscarriage. We recommend that you have a repeat HCG in 4 days Prescriptions: No Action prednisone 10 mg tablet 10 mg PO DAILY 5 Days Qty: 5 0RF azithromycin 250 mg tablet 250 mg PO ONCE 5 Days Qty: 6 0RF Rx Instructions: Take 2 tablets today then 1 daily nicotine [Nicoderm CQ] 21 mg/24 hr patch 24 hour 1 patch transdermal DAILY Qty: 28 0RF cyclobenzaprine 10 mg tablet 10 mg PO BEDTIME 30 Days Qty: 30 3RF amitriptyline 10 mg tablet 10 mg PO BEDTIME 30 Days Qty: 30 3RF lorazepam 0.5 mg tablet 0.5 mg PO DAILY PRN (Reason: anxiety) 30 Days Qty: 5 3RF
[2022-12-31 18:44] LABS: MANUAL DIFF FLAG NO
[2022-12-31 18:45] LABS: Basophils Absolute Auto 0.1 X10*3/uL (0.0-0.2); Basophils Percent Auto 0.4 % (0-2); Eosinophils Absolute Auto 0.2 X10*3/uL (0.0-0.4); Eosinophils Percent Auto 1.1 % (0-4); Hemoglobin 13.6 g/dl (12.0-16.0); Imm Gran Abs Auto 0.06 X10*3/uL (0.00-0.03); Imm Gran Pct Auto 0.5 % (0.0-0.4); Lymphocytes Absolute Auto 2.5 X10*3/uL (1.2-4.9); Lymphocytes Percent Auto 18.5 % (20-40); Mean Corpuscular HGB Conc 34.9 g/dl (31.0-35.0); Mean Corpuscular Hemoglobin 30.7 pg (27.0-33.0); Mean Platelet Volume 10.9 fL (9.4-12.3); Monocytes Absolute Auto 0.7 X10*3/uL (0.1-1.2); Monocytes Percent Auto 5.4 % (2-11); Neutrophils Absolute Auto 9.9 x10*3/uL (2.0-8.3); Neutrophils Percent Auto 74.1 % (45-73); Platelet Count 293 X10*3/uL (160-400); Red Blood Count 4.43 X10*6/uL (4.20-5.50); Red Cell Distribution Width 12.7 % (11.0-16.0); White Blood Count 13.3 X10*3/uL (4.8-10.8)
[2022-12-31 18:46] LABS: Appearance Urine Clear; Color Urine Yellow; Glucose Urine UA Negative (Negative); Leukocyte Esterase Urine Negative (Negative); Nitrite Urine Negative (Negative); PH 7.5 (5.0-9.0); Specific Gravity - Urine <= 1.005 (1.005-1.025); UMIC TRIGGER UACC YES; Urine Blood Moderate (2+) (Negative); Urine Ketones Negative (Negative); Urine Protein Negative (Neg-Trace)
[2022-12-31 18:51] LABS: INTERNATIONAL NORM RATIO 0.9 (0.9-1.1)
[2022-12-31 18:54] LABS: Partial Thromboplastin Time 28.8 SEC (26.0-36.4)
[2022-12-31 19:08] LABS: HCG Quantitative 11 mIU/mL
[2022-12-31 19:13] LABS: Alanine Aminotransferase 45 U/L (0-31); Albumin Level 4.7 g/dL (3.5-5.0); Alkaline Phosphatase 80 U/L (39-117); Anion Gap 17 (12-20); Aspartate Amino Transferase 28 U/L (5-31); Bilirubin Total 0.4 mg/dL (0.0-1.0); Blood Urea Nitrogen 7 mg/dL (9-16); Carbon Dioxide 21 mmol/L (22-29); Chloride 108 mmol/L (96-108); Creatinine Clr Calc Pharmacy 114.2; Estimated Glomerular Filt Rate > 60; Glucose Random 106 mg/dL (60-115); Lipase 44 U/L (8-78); Potassium 3.9 mmol/L (3.3-5.1); Sodium 142 mmol/L (135-145)
[2022-12-31 20:28] LABS: Bacteria Urine None Seen (None Seen); Hyaline Casts Urine 0-2 /LPF (0-2); Squamous Epithelial Cell Urine 0-2 /HPF (0-2); WBC Urine 0-5 /HPF (0-5)
--- NOTE | 2022-12-31 21:07 | PC.NURSE ---
pt assessed and discharge by provider.
== END 2022-12-31 21:11 | disposition home or self-care (01) ==
LOC: HO.ED 21:10
PROVIDERS: Physician Assistant; Emergency Provider Emergency Medicine; PCP Internal Medicine
DX: O20.0 Threatened abortion (principal); Z3A.01 Less than 8 weeks gestation of pregnancy
CPT/HCPCS: 36415; 80053; 81001; 83690; 84702; 85025; 85610; 85730; 86850; 86900; 86901; 99282; 99283

== ENCOUNTER 2023-01-04 16:48 | Emergency (ER) | payer OTHER, SELFPAY ==
--- NOTE | ~2023-01-04 | US_ITS ---
EXAMINATION: US OBSTETRICAL ULTRASOUND CLINICAL INFORMATION: with vaginal bleeding and abdominal pain. COMPARISON: Obstetrical ultrasound dated 05/09/2011. LMP: 12/08/2022. Gestational age by maternal dates is 3 weeks and 6 days. Estimated date of delivery by maternal dates is 09/14/2023. TECHNIQUE: Ultrasound of the maternal pelvis is performed using transabdominal and transvaginal transducers. Transvaginal imaging is performed due to inadequate visualization transabdominally. M-mode Doppler is also performed. FINDINGS: There is no intrauterine gestational sac, yolk sac, embryo/fetus or cardiac activity. The endometrial stripe thickness is 5 mm. There is no decidual reaction, subchorionic hemorrhage or hematoma. MATERNAL ADNEXA: The right maternal ovary measures 2.8 x 1.9 x 1.9 cm. The left maternal ovary measures 2.7 x 1.9 x 1.5 cm. There is no significant maternal adnexal mass or cyst. There is no tubal ring sign noted. No maternal pelvic ascites. US/US OB pelvic and transvaginal IMPRESSION: Unremarkable examination. No intrauterine is presently noted. No adnexal mass, cyst or tubal ring sign is seen to suggest an ectopic . Recommend clinical correlation, with follow-up ultrasound imaging and serial beta hCG levels as clinically indicated.
--- NOTE | 2023-01-04 16:52 | ED_ITS ---
HPI - General Adult General Chief complaint: Abdominal Pain Stated complaint: ?Eptopic Related Data Previous Rx's ?Medication ?Instructions ?Recorded nicotine 21 mg/24 hr daily 1 patch transdermal DAILY #28 ea 12/22/22 transdermal patch (Nicoderm CQ) amitriptyline 10 mg tablet 10 mg PO BEDTIME 30 days #30 tabs 02/21/23 cyclobenzaprine 10 mg tablet 10 mg PO BEDTIME 30 days #30 tabs 02/21/23 lorazepam 0.5 mg tablet 0.5 mg PO DAILY PRN anxiety 30 05/30/23 days #5 tabs Allergies Allergy/AdvReac Type Severity Reaction Status Date / Time No Known Allergies Allergy Verified 02/21/23 08:03 PMFSH Past Medical History Medical History No known health problems Surgical History No pertinent past surgical history Family History Family History Mother Heart disease Father No problems noted. Other Mental health disorder Substance use disorder Social History Social History Housing: Apartment Alcohol intake: never Patient Tobacco Use Status: Current everyday Tobacco user Cigarette Packs Per Day: 0.5 Cigarettes Per Day: 10 Years Smoked: 15 +/- e-Cigarette/Vaping Use: Never Used Substance Use Type: Marijuana Current occupational status: employed Cognitive needs: No Hearing needs: No Vision needs: No Physical Exam ED Vital Signs: Vital Signs - 24 hr 01/04/23 16:53 Temperature 97.7 F Pulse Rate 115 H Respiratory Rate 16 Blood Pressure 119/83 Pulse Oximetry 99 Oxygen Delivery Method Room Air BMI result Body Mass Index 30.6 Course Course Course Narrative: This is an RME: Additional HPI, ROS, PE not included below will be deferred to primary provider. 32 year old female A2 presents 11/28 abd pain (l sided), vaginal bleeding X few days. LMP dec 08. Pe lower abd discomfort Plan- labs, us Medical Decision Making Lab Data 01/04/23 18:03 01/04/23 18:03 Labs: Lab Results 01/04/23 Range/Units 18:03 WBC Cancelled RBC Cancelled Hgb Cancelled Hct Cancelled MCV Cancelled MCH Cancelled MCHC Cancelled RDW Cancelled Plt Count Cancelled MPV Cancelled Immature Gran % (Auto) Cancelled Neut % (Auto) Cancelled Lymph % (Auto) Cancelled [place] % (Auto) Cancelled Eos % (Auto) Cancelled Baso % (Auto) Cancelled Lymph # (Auto) Cancelled [place] # (Auto) Cancelled Eos # (Auto) Cancelled Baso # (Auto) Cancelled Abs Immat Gran (auto) Cancelled Absolute Neuts (auto) Cancelled Absolute Nucleated RBC Cancelled Nucleated RBC % (auto) Cancelled Sodium 141 (135-145) mmol/L Potassium 4.0 (3.3-5.1) mmol/L Chloride 105 (96-108) mmol/L Carbon Dioxide 23 (22-29) mmol/L Anion Gap 17 (12-20) BUN 11 (9-16) mg/dL Creatinine 0.84 (0.5-1.4) mg/dL Estim Creat Clear Calc 97.1 Estimated GFR > 60 Random Glucose 88 (60-115) mg/dL Calcium 10.2 (8.4-10.2) mg/dL Magnesium 2.1 (1.6-2.6) mg/dL Total Bilirubin 0.3 (0.0-1.0) mg/dL AST 20 (5-31) U/L ALT 30 (0-31) U/L Alkaline Phosphatase 87 (39-117) U/L Total Protein 7.8 (6.5-8.0) g/dL Albumin 4.6 (3.5-5.0) g/dL Lipase 31 (8-78) U/L Beta HCG, Quant 5 mIU/mL Blood Type A Positive Discharge Plan Discharge Clinical Impression: Eloped from emergency department Patient Disposition: Elopement Prescriptions: No Action lorazepam 0.5 mg tablet 0.5 mg PO DAILY PRN (Reason: anxiety) 30 Days Qty: 5 3RF nicotine [Nicoderm CQ] 21 mg/24 hr patch 24 hour 1 patch transdermal DAILY Qty: 28 0RF amitriptyline 10 mg tablet 10 mg PO BEDTIME 30 Days Qty: 30 3RF cyclobenzaprine 10 mg tablet 10 mg PO BEDTIME 30 Days Qty: 30 3RF Interventions: ED Discharge Assessment Last Done: 01/04/23 21:58 Discharge Date/Time: 01/04/23 21:59 Print Language: Luxembourgish
[2023-01-04 16:53] VITALS: BP 119/83; PULSE 115; RESP 16; TEMP 36.5; O2SAT 99; BMI 30.6
[2023-01-04 18:32] LABS: Alanine Aminotransferase 30 U/L (0-31); Albumin Level 4.6 g/dL (3.5-5.0); Alkaline Phosphatase 87 U/L (39-117); Anion Gap 17 (12-20); Aspartate Amino Transferase 20 U/L (5-31); Bilirubin Total 0.3 mg/dL (0.0-1.0); Blood Urea Nitrogen 11 mg/dL (9-16); Calcium 10.2 mg/dL (8.4-10.2); Carbon Dioxide 23 mmol/L (22-29); Chloride 105 mmol/L (96-108); Creatinine Clr Calc Pharmacy 97.1; Estimated Glomerular Filt Rate > 60; Glucose Random 88 mg/dL (60-115); Lipase 31 U/L (8-78); Magnesium 2.1 mg/dL (1.6-2.6); Sodium 141 mmol/L (135-145); Total Protein 7.8 g/dL (6.5-8.0)
[2023-01-04 18:34] LABS: HCG Quantitative 5 mIU/mL
== END 2023-01-04 21:59 | disposition left against medical advice (07) ==
PROVIDERS: Physician Assistant; Emergency Provider Emergency Medicine; PCP Internal Medicine
DX: O26.90 Pregnancy related conditions, unspecified, unspecified trimester (principal); R10.9 Unspecified abdominal pain; O46.90 Antepartum hemorrhage, unspecified, unspecified trimester; O99.330 Smoking (tobacco) complicating pregnancy, unspecified trimester; F17.210 Nicotine dependence, cigarettes, uncomplicated; Z3A.00 Weeks of gestation of pregnancy not specified
CPT/HCPCS: 36415; 76801; 76817; 80053; 83690; 83735; 84702; 86900; 86901; 99282; 99283

== ENCOUNTER 2023-01-06 08:43 | Outpatient (AMB) | payer OTHER, SELFPAY ==
--- NOTE | 2023-01-06 09:04 | MHC.PC.OV ---
Intake Visit Reasons: 2 week fu (i phone [phone]) Allergies No Known Allergies Allergy (Verified 12/22/22 12:59) Medication List - Last Reconciled 01/06/23 by Cherry Vogel MD amitriptyline 10 mg PO BEDTIME 30 days cyclobenzaprine 10 mg PO BEDTIME 30 days lorazepam 0.5 mg PO DAILY PRN 30 days nicotine (Nicoderm CQ) 1 patch transdermal DAILY Tobacco use date assessed: 12/22/22 HPI 2 week fu (i phone [phone]) HPI Details Patient is 32-year-old female this is a 2 week follow-up appointment Patient was having bronchitis and was coughing with chest congestion when I saw her 2 weeks ago She was also smoking and was interested in Nicoderm patches. Patient says that her cough is getting better chest congestion is better She did well with Nicoderm patch until she found out that she is and there is something wrong with the baby Patient started bleeding heavily she went to emergency room where she was told that baby has aborted . She has appointment with OBGYN coming. Due to stress she has started smoking again. She will get back to me when she is ready to quit again. [facility] Medical History No known health problems Surgical History No pertinent past surgical history Family History Mother Heart disease Father No problems noted. Other Mental health disorder Substance use disorder Social History Housing: Apartment Alcohol intake: never Patient Tobacco Use Status: Current everyday Tobacco user Cigarette Packs Per Day: 0.5 Cigarettes Per Day: 10 Years Smoked: 15 +/- e-Cigarette/Vaping Use: Never Used Substance Use Type: Marijuana Current occupational status: employed Cognitive needs: No Hearing needs: No Vision needs: No Questionnaire Thrive Questionnaire Date Thrive assessed: 12/22/22 KVNG-7 AMB Questionnaire KVNG-7 Date KVNG - 7 assessed: 12/22/22 Source: Developed by Drs. Velasquez Parmar, Ania Saab, Billy Strong and colleagues, with an educational umesh from [employer]. Review of Systems Const Denies chills and Denies fever(s) ENT Denies epistaxis and Denies nasal discharge Card Denies chest pain Resp Denies hemoptysis GI Denies diarrhea and Denies nausea Skin/Breast Denies rash Neuro Reports no additional complaints Psych Reports no additional complaints Endo Reports no additional complaints Physical exam (Primary Care) Tobacco/Smoking Status: Tobacco use Status Tobacco use date assessed 12/22/22 01/06/23 09:05 Patient Tobacco Use Status Current everyday Tobacco 01/06/23 09:05 e-Cigarette/Vaping Use Never Used 01/06/23 09:05 Thrive Assessment: Date of Thrive Assessment Date Thrive assessed 12/22/22 01/06/23 09:05 Telehealth Telehealth Location of provider rendering services: practice address Location of patient: address on file Patient Identification confirmed using: Name, : Yes Telehealth method: voice only Patient verbally consented to treatment: Yes Patient verbally consented to billing insurance company: Yes Patient informed of any privacy concerns related to visit: Yes Minutes spent on Phone/Video with Pt.: 13 Assessment and Plan Assessment & Plan (1) Acute bronchitis: Code(s): J20.9 - Acute bronchitis, unspecified Qualifiers: Bronchitis organism: other organism Qualified Code(s): J20.8 - Acute bronchitis due to other specified organisms (2) Tobacco abuse: Code(s): Z72.0 - Tobacco use Plan Patient is 32-year-old female this is a 2 week follow-up appointment Patient was having bronchitis and was coughing with chest congestion when I saw her 2 weeks ago She was also smoking and was interested in Nicoderm patches. Patient says that her cough is getting better chest congestion is better She did well with Nicoderm patch until she found out that she is and there is something wrong with the baby Patient started bleeding heavily she went to emergency room where she was told that baby has aborted . She has appointment with OBGYN coming. Due to stress she has started smoking again. She will get back to me when she is ready to quit again. Medications: Discontinued azithromycin Take 2 tablets today then 1 daily Discontinued Reason: Patient Completed Course 250 mg PO ONCE 6 tabs 0RF 5 days J06.9 - Acute upper respiratory infection, unspecified prednisone Discontinued Reason: Patient Completed Course 10 mg PO DAILY 5 tabs 0RF 5 days Coding Level of Care Code Tele Est Pt Level 3 (14693) Diagnoses Acute bronchitis due to other specified organisms J20.8 Bronchitis organism: other organism Tobacco abuse Z72.0
== END 2023-01-06 12:07 | disposition home or self-care (01) ==
PROVIDERS: PCP Internal Medicine; Visit Provider Internal Medicine
DX: J20.8 Acute bronchitis due to other specified organisms (principal); Z72.0 Tobacco use
CPT/HCPCS: 99213

== ENCOUNTER → 2023-02-21 07:56 | Outpatient (BNVA) | payer OTHER, SELFPAY | PROVIDERS: Visit Provider Nurse Practitioner Family | DX: G43.009 Migraine without aura, not intractable, without status migrainosus (principal); R20.2 Paresthesia of skin | CPT/HCPCS: 99212 ==

== ENCOUNTER 2023-02-21 08:04 | Outpatient (AMB) | payer OTHER, SELFPAY ==
--- NOTE | 2023-02-21 08:00 | MHC.OFFVIS ---
Intake Vital Signs 02/21/23 08:01 Height 5 ft 4 in Weight 180 lb 8 oz BMI 31.0 BP 124/72 Blood Pressure Location Rt brachial Position Sitting Pulse 90 Pulse Source Pulse Oximeter Pulse Oximetry (%) 99 Oxygen Delivery Method Room Air Intake Visit Reasons: 6month follow up/ Confirmed Intake Note: Pt presents to the office today for a 6 month follow up. Pt states she is feeling well. Allergies No Known Allergies Allergy (Verified 02/21/23 08:03) Medication List - Last Reconciled 02/21/23 by NEMESIO Santoro amitriptyline 10 mg PO BEDTIME 30 days cyclobenzaprine 10 mg PO BEDTIME 30 days lorazepam 0.5 mg PO DAILY PRN 30 days nicotine (Nicoderm CQ) 1 patch transdermal DAILY HPI HPI Comments History of Present Illness Details 32-yr-old female presents for f/u visit. Pt reports she had a recent miscarriage of an unplanned, unknown . Pt reports that she is compliant with Amitriptyline 10mg qhs. She feels the facial spasms seem to be better since she increased her fruit and farmer consumption.. Her neck feels better- saw a chiropractor who gave her some some exercise which helps. Using cyclobenzaprine prn, which helps. Not having as many chest pain/palpitation s/s- Lorazepam prn helps. Headaches are well-controlled. [facility] Medical History No known health problems Surgical History No pertinent past surgical history Family History Mother Heart disease Father No problems noted. Other Mental health disorder Substance use disorder Social History Housing: Apartment Alcohol intake: never Patient Tobacco Use Status: Current everyday Tobacco user Cigarette Packs Per Day: 0.5 Cigarettes Per Day: 10 Years Smoked: 15 +/- e-Cigarette/Vaping Use: Never Used Substance Use Type: Marijuana Current occupational status: employed Cognitive needs: No Hearing needs: No Vision needs: No Review of Systems Const All systems reviewed & are unremarkable except as noted in HPI and below Physical Exam Vital Signs: Last Vital Signs Pulse 90 02/21/23 08:01 BP 124/72 02/21/23 08:01 Pulse Ox 99 02/21/23 08:01 Oxygen Delivery Method Room Air 02/21/23 08:01 BMI result Body Mass Index 31.0 Const General: cooperative and no acute distress Orientation/consciousness: patient oriented x3 HEENT Head: Yes normocephalic Resp Effort & Inspection: normal respiratory effort and able to speak in complete sentences Neuro General: patient oriented x3, gait normal and CN's II-XI intact bilaterally Cognition (Neuro): normal cognition Motor exam (neuro): 5/5 motor strength present throughout Psych Appearance: grossly normal Mental Status: mental status grossly normal Speech and movement: Normal speech and movement present Affect: normal affect Attitude: cooperative Thought process: Normal thought process present Thought content: Normal thought content present Insight: Good insight present (Psych) Judgement: Good judgement present (Psych) Assessment & Plan Assessment & Plan (1) Migraine without aura: Comment: ? cervicogenic, ? medication over use component Code(s): G43.009 - Migraine without aura, not intractable, without status migrainosus (2) Facial paresthesia: Code(s): R20.2 - Paresthesia of skin Plan Continue Lorazepam 0.5mg prn- 5 tabs per month only. Do NOT take w/ alcohol. Continue Amitriptyline 10mg qhs. Continue Cyclobenzaprine 10mg qhs. Continue upper body stretches and ROM exercises. ? Previous trials- Gabapentin- not tolerated. Melatonin, magnesium and riboflavin- ineffective. Future consideration- psychotherapy. f/u in 6 months or sooner prn Medications: Refilled amitriptyline 10 mg PO BEDTIME 30 days 30 tabs 3RF cyclobenzaprine 10 mg PO BEDTIME 30 days 30 tabs 3RF Coding Level of Care Code Est Pt Level 4 (42135) Diagnoses Migraine without aura G43.009 Facial paresthesia R20.2
[2023-02-21 08:01] VITALS: BP 124/72; PULSE 90; O2SAT 99; BMI 31.0
== END 2023-02-21 08:36 | disposition home or self-care (01) ==
PROVIDERS: Visit Provider Nurse Practitioner Family
DX: G43.009 Migraine without aura, not intractable, without status migrainosus (principal); R20.2 Paresthesia of skin
CPT/HCPCS: 99214

== ENCOUNTER 2023-08-10 08:30 | Emergency (ER) | payer OTHER, SELFPAY ==
--- NOTE | ~2023-08-10 | XR_ITS ---
EXAMINATION: XR CHEST CLINICAL INFORMATION: Left rib pain. COMPARISON: 03/22/2022. TECHNIQUE: 2 views of the chest were obtained. FINDINGS: There is no gross pneumothorax. Heart size is normal. Lung volumes are low. No pleural effusion. No new focal consolidation to suggest pneumonia. XR/XR chest 2V IMPRESSION: No evidence of pneumonia. Dedicated views of the ribs should be considered if there is clinical concern for rib pathology as noted in clinical history provided. This study was presented today August 10, 2023 for interpretation. Stat results provided at this time as requested by referring provider.
[2023-08-10 08:52] VITALS: BP 131/74; PULSE 87; RESP 16; TEMP 36.6; O2SAT 100; BMI 28.3
--- NOTE | 2023-08-10 08:56 | ECG_ITS ---
Test Reason : Left sided chest/rib pain Blood Pressure : / mmHG Vent. Rate : 077 BPM Atrial Rate : 077 BPM P-R Int : 122 ms QRS Dur : 084 ms QT Int : 360 ms P-R-T Axes : 016 045 009 degrees QTc Int : 407 ms Normal sinus rhythm Nonspecific T wave abnormality Abnormal ECG When compared with ECG of 12-NOV-2021 19:47, QT has shortened Referred By: Generic ED Physician Electronically Signed By:ALYSSA JUNG MD
[2023-08-10 09:13] LABS: MANUAL DIFF FLAG NO
[2023-08-10 09:16] LABS: Appearance Urine Clear; Basophils Absolute Auto 0.1 X10*3/uL (0.0-0.2); Basophils Percent Auto 0.8 % (0-2); Color Urine Yellow; Eosinophils Absolute Auto 0.2 X10*3/uL (0.0-0.4); Eosinophils Percent Auto 2.7 % (0-4); Glucose Urine UA Negative (Negative); Hematocrit 40.9 % (37.0-47.0); Hemoglobin 14.1 g/dl (12.0-16.0); Imm Gran Abs Auto 0.02 X10*3/uL (0.00-0.03); Imm Gran Pct Auto 0.3 % (0.0-0.4); Leukocyte Esterase Urine Trace (Negative); Lymphocytes Absolute Auto 1.9 X10*3/uL (1.2-4.9); Lymphocytes Percent Auto 24.6 % (20-40); Mean Corpuscular HGB Conc 34.5 g/dl (31.0-35.0); Mean Corpuscular Hemoglobin 30.8 pg (27.0-33.0); Mean Corpuscular Volume 89.3 fL (80.0-98.0); Mean Platelet Volume 10.9 fL (9.4-12.3); Monocytes Absolute Auto 0.4 X10*3/uL (0.1-1.2); Monocytes Percent Auto 5.9 % (2-11); Neutrophils Percent Auto 65.7 % (45-73); Nitrite Urine Negative (Negative); PH 6.5 (5.0-9.0); Platelet Count 262 X10*3/uL (160-400); Red Blood Count 4.58 X10*6/uL (4.20-5.50); Red Cell Distribution Width 12.6 % (11.0-16.0); UMIC TRIGGER UACC YES; Urine Blood Negative (Negative); Urine Ketones Negative (Negative); Urine Protein Negative (Neg-Trace); White Blood Count 7.5 X10*3/uL (4.8-10.8)
[2023-08-10 09:17] LABS: UPreg QC Valid YES; Urine Pregnancy NEGATIVE (NEGATIVE)
[2023-08-10 09:19] LABS: Bacteria Urine Trace (None Seen); Hyaline Casts Urine 0-2 /LPF (0-2); RBC Urine 0-2 /HPF (0-2); Squamous Epithelial Cell Urine 0-2 /HPF (0-2); WBC Urine 0-5 /HPF (0-5)
--- NOTE | 2023-08-10 09:28 | ED.GENADULT ---
HPI - General Adult General Chief complaint: Abdominal Pain Stated complaint: L sided Rib pain Time Seen by Provider: 08/10/23 09:17 Source: patient Mode of arrival: ambulatory Limitations: no limitations History of Present Illness ED Provider: Topher Mclain NP HPI narrative: Patient is a 32-year-old female with history of anxiety, cannabis use disorder, migraines presenting to the emergency department with 3 days of left mid back pain radiating around left lateral ribs. She denies any shortness of breath, cough or dyspnea. Denies fevers. Denies chest pain or palpitations. She is not on OCPs, denies recent travel, calf pain or swelling. She reports that prior to onset of symptoms she had started a new job at the [employer] which involves heavy lifting. States symptoms began a few days after quitting this job. 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 Describes pain as spasmodic. Not worsened with eating/drinking. Denies fall or other trauma. Denies abdominal pain, nausea, vomiting, diarrhea or constipation. Denies urinary symptoms. MD complaint: back pain Onset (ago): day(s) Location: back Radiation: other (lateral ribs) Severity: severe Quality: sharp Pain Consistency: intermittent Relieving factors: rest Exacerbating factors: movement Associated symptoms: denies other symptoms Treatments prior to arrival: NSAID Related Data Previous Rx's ?Medication ?Instructions ?Recorded nicotine 21 mg/24 hr daily 1 patch transdermal DAILY #28 ea 12/22/22 transdermal patch (Nicoderm CQ) amitriptyline 10 mg tablet 10 mg PO BEDTIME 30 days #30 tabs 02/21/23 cyclobenzaprine 10 mg tablet 10 mg PO BEDTIME 30 days #30 tabs 02/21/23 lorazepam 0.5 mg tablet 0.5 mg PO DAILY PRN anxiety 30 05/30/23 days #5 tabs lidocaine 5 % topical patch 1 patch topical DAILY #15 ea 08/10/23 methocarbamol 500 mg tablet 500 mg PO Q8H #10 tabs 08/10/23 naproxen 500 mg tablet 500 mg PO BID #14 tabs 08/10/23 Allergies Allergy/AdvReac Type Severity Reaction Status Date / Time No Known Allergies Allergy Verified 08/10/23 08:55 Review of Systems Review of Systems: As per HPI Yes all other systems are reviewed and are negative Constitutional: Constitutional: Reports as per [facility] Past Medical History Medical History No known health problems Surgical History No pertinent past surgical history Family History Family History Mother Heart disease Father No problems noted. Other Mental health disorder Substance use disorder Social History Social History Housing: Apartment Alcohol intake: never Patient Tobacco Use Status: Current everyday Tobacco user Cigarette Packs Per Day: 0.5 Cigarettes Per Day: 10 Years Smoked: 15 +/- e-Cigarette/Vaping Use: Never Used Substance Use Type: Marijuana Advance Directives: No Advance Directives Information Provided: No Current occupational status: employed Cognitive needs: No Hearing needs: No Vision needs: No Physical Exam ED Vital Signs: Vital Signs - 24 hr 08/10/23 08:52 Temperature 97.9 F Pulse Rate 87 Respiratory Rate 16 Blood Pressure 131/74 Pulse Oximetry 100 Oxygen Delivery Method Room Air BMI result Body Mass Index 28.3 Vital signs have been reviewed and appear to be correct. Blood pressure normal. Heart rate normal. Respiratory rate normal. Temperature normal. Oxygen saturation normal. Const General: cooperative, healthy appearing and no acute distress Orientation/consciousness: oriented to person, oriented to place, oriented to time and patient oriented x3 Limitations: no limitations HENMT Head: Yes normocephalic and Yes atraumatic Ears: external ears normal General nose exam: Normal external nose present Face and sinus: Yes face symmetric Mouth: oropharynx normal and moist mucous membranes Throat: Yes uvula midline Eyes Pupils: Equal, round and reactive pupils present Neck Neck: Yes normal visual inspection and Yes supple Chest Chest palpation & inspection: normal inspection of the chest and tenderness rib left mid-axillary line Resp Effort & Inspection: normal respiratory effort and able to speak in complete sentences Auscultation: clear to auscultation bilaterally Cardio Rate: regular rate Rhythm: regular rhythm Heart sounds: S1 normal heart sound present and S2 normal heart sound present GI Palpation (GI): Soft to palpation and nontender Auscultation: normoactive bowel sounds General: Yes no CVA tenderness Back/Spine/Pelvis Back: no CVA tenderness Cervical Spine: normal cervical lordosis and cervical ROM normal Thoracic/Lumbar Spine: thoracic and lumbar spine normal to inspection, thoraco-lumbar ROM normal, pain with thoraco-lumbar ROM, paraspinal muscle tenderness on the left in the upper thoracic, thoraco-lumbar spasm on the left in the upper thoracic, No thoracic spinal tenderness and No lumbar spinal tenderness Skin General skin exam: elasticity normal and turgor normal Neuro General: oriented to person, oriented to place, oriented to time, patient oriented x3, moves all extremities, no focal motor deficits and CN's II-XI intact bilaterally Cranial nerves: Yes Equal, round and reactive pupils present Cognition (Neuro): normal cognition Extrem General: Yes full ROM, Yes no pedal edema and Yes no calf tenderness Psych Mental Status: mental status grossly normal Affect: normal affect Thought process: Normal thought process present Medical Decision Making Medical Decision Making MDM Narrative: Patient is a 32-year-old female with history of anxiety, cannabis use disorder, migraines presenting to the emergency department with 3 days of left mid back pain radiating around left lateral ribs. On exam patient is awake, A+Ox3, VS WNL, afebrile, normal neurological exam without focal deficits, physical exam findings as above. Given reported symptoms and physical exam findings, initial differential includes mid back strain/spasm, costochondritis. Less likely UTI/pyelonephritis, pneumonia, pancreatitis. EKG shows normal sinus rhythm. Labs unremarkable. X-ray chest notable for no evidence of pneumonia. Do not feel dedicated rib x-rays are indicated as patient denies fall or other trauma. My interpretation is in agreement with the radiologist's interpretation. Urinalysis notable for trace leukocytes, do not suspect UTI. Feel based on reported history and physical exam findings, symptoms likely due to muscle strain and costochondritis. Will send prescription for muscle relaxer, naproxen, topical lidocaine patches. Advised patient to alternate cool and warm compresses. Return precautions discussed. Patient verbalized understanding of and agreement with plan. Differential Diagnosis Differential Diagnoses: The differential diagnosis associated with the presentation includes As per [facility]. Admission/Observation Consideration of admission/observation: Escalation of care including admission/observation considered Patient would have been admitted to the hospital had their work up had any findings where hospital admission was appropriate and their clinical presentation warranted hospital admission. Lab Data [facility] Lab Attestation statement: I reviewed the patient's lab results. As per MDM. 05/22/24 09:07 08/10/23 09:07 Labs: Lab Results 08/10/23 Range/Units 09:07 WBC 7.5 (4.8-10.8) X10*3/uL RBC 4.58 (4.20-5.50) X10*6/uL Hgb 14.1 (12.0-16.0) g/dl Hct 40.9 (37.0-47.0) % MCV 89.3 (80.0-98.0) fL MCH 30.8 (27.0-33.0) pg MCHC 34.5 (31.0-35.0) g/dl RDW 12.6 (11.0-16.0) % Plt Count 262 (160-400) X10*3/uL MPV 10.9 (9.4-12.3) fL Immature Gran % (Auto) 0.3 (0.0-0.4) % Neut % (Auto) 65.7 (45-73) % Lymph % (Auto) 24.6 (20-40) % Piatt % (Auto) 5.9 (2-11) % Eos % (Auto) 2.7 (0-4) % Baso % (Auto) 0.8 (0-2) % Lymph # (Auto) 1.9 (1.2-4.9) X10*3/uL Piatt # (Auto) 0.4 (0.1-1.2) X10*3/uL Eos # (Auto) 0.2 (0.0-0.4) X10*3/uL Baso # (Auto) 0.1 (0.0-0.2) X10*3/uL Abs Immat Gran (auto) 0.02 (0.00-0.03) X10*3/uL Absolute Neuts (auto) 5.0 (2.0-8.3) x10*3/uL Absolute Nucleated RBC 0.000 (0.0-0.012) X10*3/uL Nucleated RBC % (auto) 0.0 (0.0-0.2) /100WBC Sodium 142 (135-145) mmol/L Potassium 3.8 (3.3-5.1) mmol/L Chloride 108 (96-108) mmol/L Carbon Dioxide 25 (22-29) mmol/L Anion Gap 13 (12-20) BUN 7 L (9-16) mg/dL Creatinine 0.76 (0.5-1.4) mg/dL Estim Creat Clear Calc 103.4 Estimated GFR > 60 Random Glucose 101 (60-115) mg/dL Calcium 9.8 (8.4-10.2) mg/dL Total Bilirubin 0.5 (0.0-1.0) mg/dL Direct Bilirubin 0.1 (0.0-0.5) mg/dL AST 13 (5-31) U/L ALT 11 (0-31) U/L Alkaline Phosphatase 67 (39-117) U/L Troponin I High Sens < 2.7 (<3.5-17.0) ng/L Total Protein 7.6 (6.5-8.0) g/dL Albumin 4.6 (3.5-5.0) g/dL Lipase 19 (8-78) U/L Urine Color Yellow Urine Appearance Clear Urine pH 6.5 (5.0-9.0) Ur Specific [place] 1.010 (1.005-1.025) Urine Protein Negative (Neg-Trace) mg/dL Urine Glucose (UA) Negative (Negative) mg/dL Urine Ketones Negative (Negative) mg/dL Urine Blood Negative (Negative) Urine Nitrite Negative (Negative) Ur Leukocyte Esterase Trace H (Negative) Urine RBC 0-2 (0-2) /HPF Urine WBC 0-5 (0-5) /HPF Ur Squamous Epith Cells 0-2 (0-2) /HPF Urine Bacteria Trace (None Seen) Hyaline Casts 0-2 (0-2) /LPF Urine Test NEGATIVE (NEGATIVE) Independent Interpretation I performed an independent interpretation of an: Plain X-Ray Interpretation: No evidence of pneumonia on chest x-ray Radiology Impression Discussion of test interpretation with radiology: I have reviewed the radiologist's reading. Radiologist Impression: XR/XR chest 2V IMPRESSION: No evidence of pneumonia. Dedicated views of the ribs should be considered if there is clinical concern for rib pathology as noted in clinical history provided. This study was presented today August 10, 2023 for interpretation. Stat results provided at this time as requested by referring provider. External Record Review External record reviewed: Inpatient record, Office record and Outpatient record Prescription Management I considered prescription management with: Pain Medication and Other Discharge Plan Discharge Clinical Impression: Strain of mid-back, Acute costochondritis Patient Disposition: Home, Self-Care Instructions: Muscle Strain (DC), Costochondritis (ED), Thoracic Pain (ED), Thoracic Back Strain (ED) Additional Instructions: You were evaluated in the emergency department today for back and rib pain. Your symptoms appear to be due to overuse of these muscles. We recommend that you take Tylenol 650 mg every 6 hours, you are also being prescribed naproxen which you can take twice daily. You are being prescribed robaxin which is a muscle relaxer as well as topical lidocaine patches which you can wear for up to 12 hours in a 24 hour period. DO NOT TAKE THE ROBAXIN IN COMBINATION WITH THE CYCLOBENZAPRINE THAT YOU HAVE AT HOME. Do not apply heat directly over the patches. We do recommend that you alternate applying heat and ice to the affected areas for 10-15 minutes at a time several times daily. Please follow-up with your primary care provider for any ongoing symptoms. Return to the emergency department with any new or worsening symptoms. Prescriptions: New naproxen 500 mg tablet 500 mg PO BID Qty: 14 0RF methocarbamol 500 mg tablet 500 mg PO Q8H Qty: 10 0RF lidocaine 5 % adhesive patch,medicated 1 patch topical DAILY Qty: 15 0RF Rx Instructions: leave on most painful area for up to 12 hrs No Action lorazepam 0.5 mg tablet 0.5 mg PO DAILY PRN (Reason: anxiety) 30 Days Qty: 5 3RF nicotine [Nicoderm CQ] 21 mg/24 hr patch 24 hour 1 patch transdermal DAILY Qty: 28 0RF amitriptyline 10 mg tablet 10 mg PO BEDTIME 30 Days Qty: 30 3RF cyclobenzaprine 10 mg tablet 10 mg PO BEDTIME 30 Days Qty: 30 3RF Print Language: [place]
[2023-08-10 09:30] LABS: Alanine Aminotransferase 11 U/L (0-31); Albumin Level 4.6 g/dL (3.5-5.0); Alkaline Phosphatase 67 U/L (39-117); Anion Gap 13 (12-20); Aspartate Amino Transferase 13 U/L (5-31); Bilirubin Direct 0.1 mg/dL (0.0-0.5); Bilirubin Total 0.5 mg/dL (0.0-1.0); Blood Urea Nitrogen 7 mg/dL (9-16); Calcium 9.8 mg/dL (8.4-10.2); Carbon Dioxide 25 mmol/L (22-29); Chloride 108 mmol/L (96-108); Creatinine Clr Calc Pharmacy 103.4; Estimated Glomerular Filt Rate > 60; Glucose Random 101 mg/dL (60-115); Lipase 19 U/L (8-78); Potassium 3.8 mmol/L (3.3-5.1); Sodium 142 mmol/L (135-145); Total Protein 7.6 g/dL (6.5-8.0)
[2023-08-10 09:38] LABS: Troponin-I High Sensitivity < 2.7 ng/L (<3.5-17.0)
--- NOTE | 2023-08-10 09:52 | PC.NURSE ---
patient awake and alert. skin pwd. resp even and non labored. speaking in full, clear sentences. reports intermittent left flank pain x 3 days, denies pain at this time. 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 also c/o some pressure w urination. denies issues w/ bowels. awaiting lab results.
--- NOTE | 2023-08-10 10:41 | PC.NURSE ---
patient left ED w/o waiting for discharge instructions from RN
[2023-08-10 10:42] LABS: HCG Quantitative < 2 mIU/mL
== END 2023-08-10 10:41 | disposition left against medical advice (07) ==
PROVIDERS: Registered Nurse Emergency; Emergency Provider Emergency Medicine; PCP Internal Medicine
DX: S29.012A Strain of muscle and tendon of back wall of thorax, initial encounter (principal); X58.XXXA Exposure to other specified factors, initial encounter; Y93.9 Activity, unspecified; Y92.9 Unspecified place or not applicable; Y99.9 Unspecified external cause status; M94.0 Chondrocostal junction syndrome [Tietze]; M54.9 Dorsalgia, unspecified
CPT/HCPCS: 36415; 71046; 80048; 80076; 81001; 81025; 83690; 84484; 84702; 85025; 93005; 99283

== ENCOUNTER → 2023-08-10 08:56 | Outpatient (BNV) | payer OTHER, SELFPAY | PROVIDERS: Emergency Provider Emergency Medicine; PCP Internal Medicine; Visit Provider Internal Medicine Cardiovascular Disease | DX: R07.9 Chest pain, unspecified (principal); R94.31 Abnormal electrocardiogram [ECG] [EKG] | CPT/HCPCS: 93010 ==

== ENCOUNTER 2023-08-17 20:38 | Emergency (ER) | payer OTHER, SELFPAY ==
[2023-08-17 20:40] VITALS: BP 125/80; PULSE 101; RESP 18; TEMP 36.6; O2SAT 98; BMI 27.5
--- NOTE | 2023-08-17 22:56 | MHC.EDTECH ---
Patient refused vital signs.
[2023-08-17] MEDS: Doxycycline Monohydrate 100 MG CAPSULE PO (23:10)
[2023-08-17] MEDS: cephALEXin 500 MG CAPSULE PO (23:10)
--- NOTE | 2023-08-17 23:12 | ED_ITS ---
HPI - Skin/Abscess/Foreign Bdy General Chief complaint: Skin/Abscess/Foreign Body Stated complaint: needs antibiotics Time Seen by Provider: 08/17/23 21:30 Source: patient Mode of arrival: ambulatory Limitations: no limitations History of Present Illness ED Provider: dhiraj JESUS narrative: Patient complaining of small boil on the left labia for last few days which happened frequently in the past treated with Bactrim Related Data Previous Rx's ?Medication ?Instructions ?Recorded nicotine 21 mg/24 hr daily 1 patch transdermal DAILY #28 ea 12/22/22 transdermal patch (Nicoderm CQ) amitriptyline 10 mg tablet 10 mg PO BEDTIME 30 days #30 tabs 02/21/23 cyclobenzaprine 10 mg tablet 10 mg PO BEDTIME 30 days #30 tabs 02/21/23 lorazepam 0.5 mg tablet 0.5 mg PO DAILY PRN anxiety 30 05/30/23 days #5 tabs lidocaine 5 % topical patch 1 patch topical DAILY #15 ea 08/10/23 methocarbamol 500 mg tablet 500 mg PO Q8H #10 tabs 08/10/23 naproxen 500 mg tablet 500 mg PO BID #14 tabs 08/10/23 doxycycline hyclate 100 mg tablet 100 mg PO BID #20 tabs 08/17/23 Allergies Allergy/AdvReac Type Severity Reaction Status Date / Time No Known Allergies Allergy Verified 08/17/23 20:42 Review of Systems 2 Review of Systems: Yes all other systems are reviewed and are negative PMFSH Past Medical History Medical History No known health problems Surgical History No pertinent past surgical history Family History Family History Mother Heart disease Father No problems noted. Other Mental health disorder Substance use disorder Social History Social History Housing: Apartment Alcohol intake: never Patient Tobacco Use Status: Current everyday Tobacco user Cigarette Packs Per Day: 0.5 Cigarettes Per Day: 10 Years Smoked: 15 +/- e-Cigarette/Vaping Use: Never Used Substance Use Type: Marijuana Advance Directives: No Advance Directives Information Provided: No Do you have a plan to hurt others: No Plan Current occupational status: employed Cognitive needs: No Hearing needs: No Vision needs: No Physical Exam 2 Vital Signs: Vital Signs: Last Vital Signs Temp 97.9 F 08/17/23 20:40 Pulse 101 H 08/17/23 20:40 Resp 18 08/17/23 20:40 BP 125/80 08/17/23 20:40 Pulse Ox 98 08/17/23 20:40 O2 Del Method Room Air 08/17/23 20:40 BMI result Body Mass Index 27.5 : Female genitals images: 1. Small follicular induration without fluctuance or cellulitis Medications Administered Discontinued Medications Generic Name Dose Route Start Last Admin Trade Name Freq PRN Reason Stop Dose Admin Cephalexin HCl 500 mg 08/17/23 23:06 08/17/23 23:10 Cephalexin 500 Mg Capsule PO 08/17/23 23:07 500 mg ONCE ONE Administration Doxycycline Monohydrate 100 mg 08/17/23 23:06 08/17/23 23:10 Doxycycline Monohydrate 100 Mg Capsule PO 08/17/23 23:07 100 mg ONCE ONE Administration Discharge Plan Discharge Clinical Impression: Folliculitis Patient Disposition: Home, Self-Care Instructions: Folliculitis (ED) Additional Instructions: Take antibiotics as prescribed local care as adv Prescriptions: New doxycycline hyclate 100 mg tablet 100 mg PO BID Qty: 20 0RF No Action lorazepam 0.5 mg tablet 0.5 mg PO DAILY PRN (Reason: anxiety) 30 Days Qty: 5 3RF naproxen 500 mg tablet 500 mg PO BID Qty: 14 0RF methocarbamol 500 mg tablet 500 mg PO Q8H Qty: 10 0RF lidocaine 5 % adhesive patch,medicated 1 patch topical DAILY Qty: 15 0RF Rx Instructions: leave on most painful area for up to 12 hrs nicotine [Nicoderm CQ] 21 mg/24 hr patch 24 hour 1 patch transdermal DAILY Qty: 28 0RF amitriptyline 10 mg tablet 10 mg PO BEDTIME 30 Days Qty: 30 3RF cyclobenzaprine 10 mg tablet 10 mg PO BEDTIME 30 Days Qty: 30 3RF Print Language: Syriac
[2023-08-17 23:14] VITALS: BP 125/80; PULSE 101; RESP 18; TEMP 36.6; O2SAT 98
== END 2023-08-17 23:16 | disposition home or self-care (01) ==
PROVIDERS: Emergency Provider Internal Medicine; PCP Internal Medicine
DX: L73.9 Follicular disorder, unspecified (principal); F17.210 Nicotine dependence, cigarettes, uncomplicated; F12.90 Cannabis use, unspecified, uncomplicated
CPT/HCPCS: 99283; 99284

== ENCOUNTER 2023-10-18 08:20 | Outpatient (AMB) | payer OTHER, SELFPAY ==
--- NOTE | 2023-10-18 08:48 | MHC.OFFWIV ---
Intake Vital Signs 10/18/23 08:49 Height 5 ft 4 in Weight 162 lb BMI 27.8 BP 108/72 Blood Pressure Location Rt brachial Position Sitting Pulse 95 Pulse Source Pulse Oximeter Temp 98.3 F Temp Source Oral Pulse Oximetry (%) 98 Oxygen Delivery Method Room Air Intake Visit Reasons: EP ?ear infection 1 week/back pain due to Intake Note: pt c/o ? ear infection and back pain Patient Tobacco Use Status: Current everyday Tobacco user Allergies No Known Allergies Allergy (Verified 10/18/23 08:48) Do you need a note to return to daycare/school/sports/work: No HPI HPI Comments History of Present Illness Details 33-year-old female presents today complaining of nasal congestion cough sinus pressure and pain and ear pain. She states these symptoms have been increasing for the past week. [facility] Medical History No known health problems Surgical History No pertinent past surgical history Family History Mother Heart disease Father No problems noted. Other Mental health disorder Substance use disorder Social History Housing: Apartment Alcohol intake: never Patient Tobacco Use Status: Current everyday Tobacco user Cigarette Packs Per Day: 0.5 Cigarettes Per Day: 10 Years Smoked: 15 +/- e-Cigarette/Vaping Use: Never Used Substance Use Type: Marijuana Current occupational status: employed Cognitive needs: No Hearing needs: No Vision needs: No Review of Systems Const All systems reviewed & are unremarkable except as noted in HPI and below Reports malaise Eyes Reports no additional complaints ENT Reports Normal hearing present, Reports otalgia, Reports facial pain, Reports sinus pain and Reports sinus pressure Card Reports no additional complaints Resp Reports pain with cough GI Reports no additional complaints Reports no additional complaints Neuro Reports Normal hearing present Physical Exam Vital Signs: Last Vital Signs Temp 98.3 F 10/18/23 08:49 Pulse 95 10/18/23 08:49 BP 108/72 10/18/23 08:49 Pulse Ox 98 10/18/23 08:49 Oxygen Delivery Method Room Air 10/18/23 08:49 BMI result Body Mass Index 27.8 Const General: healthy appearing and acute distress mild HEENT Head: Yes normal to inspection, Yes normocephalic and Yes atraumatic Ears: hearing grossly normal bilaterally, external ears normal and TM's normal bilaterally General nose exam: Normal external nose present Face and sinus: Yes sinus tenderness Mouth: Normal oral and palatal mucosa present Throat: Yes posterior oropharynx normal Resp Effort & Inspection: normal respiratory effort Auscultation: clear to auscultation bilaterally Cardio Rate: regular rate Rhythm: regular rhythm Heart sounds: S1 normal heart sound present and S2 normal heart sound present Neuro Cranial nerves: Yes Normal hearing present Assessment & Plan Assessment & Plan (1) Sinusitis: Code(s): J32.9 - Chronic sinusitis, unspecified Plan: antibiotic ordered and will f/u with PCP Plan see plan Medications: New doxycycline hyclate 100 mg PO BID 14 caps 0RF 7 days benzonatate 100 mg PO Q4H PRN 14 caps 0RF cough Coding Level of Care Code Est Pt Level 3 (11240) Diagnoses Sinusitis J32.9
[2023-10-18 08:49] VITALS: BP 108/72; PULSE 95; TEMP 36.8; O2SAT 98; BMI 27.8
== END 2023-10-18 10:08 | disposition home or self-care (01) ==
PROVIDERS: PCP Internal Medicine; Visit Provider Physician Assistant Medical
DX: J32.9 Chronic sinusitis, unspecified (principal)
CPT/HCPCS: 99213

== ENCOUNTER 2023-12-01 15:06 | Emergency (ER) | payer OTHER, SELFPAY ==
[2023-12-01 15:47] VITALS: BP 108/68; PULSE 80; RESP 16; TEMP 36.9; O2SAT 98; BMI 26.6
--- NOTE | 2023-12-01 15:50 | ED_ITS ---
HPI - General Adult General Chief complaint: Urogenital-Female Stated complaint: /std test? Source: patient Mode of arrival: ambulatory Limitations: no limitations History of Present Illness ED Provider: Marcos Gauthier PA-C HPI narrative: 33-year-old female history of anxiety, cannabis use disorder, palpitation, presents to the ED for foul vaginal odor with pink discharge. Patient admits to recent unprotected sex. Patient does not know if she is not . Patient denies any abdominal pain, flank pain, vaginal lesions, fever, or chills. Related Data Previous Rx's ?Medication ?Instructions ?Recorded benzonatate 100 mg capsule 100 mg PO Q4H PRN cough #14 caps 10/18/23 doxycycline hyclate 100 mg capsule 100 mg PO BID 7 days #14 caps 10/18/23 doxycycline hyclate 100 mg capsule 100 mg PO BID 7 days #14 caps 12/01/23 metronidazole 500 mg tablet 500 mg PO Q12H 7 days #14 tabs 12/01/23 Allergies Allergy/AdvReac Type Severity Reaction Status Date / Time No Known Allergies Allergy Verified 12/01/23 15:49 Review of Systems Review of Systems: Foul vaginal odor. [place] vaginal discharge Yes all other systems are reviewed and are negative PMFSH Past Medical History Medical History No known health problems Surgical History No pertinent past surgical history Family History Family History Mother Heart disease Father No problems noted. Other Mental health disorder Substance use disorder Social History Social History Housing: Apartment Alcohol intake: never Patient Tobacco Use Status: Current everyday Tobacco user Cigarette Packs Per Day: 0.5 Cigarettes Per Day: 10 Years Smoked: 15 +/- e-Cigarette/Vaping Use: Never Used Substance Use Type: Marijuana Advance Directives: No Advance Directives Information Provided: Yes Do you have a plan to hurt others: No Plan Current occupational status: employed Cognitive needs: No Hearing needs: No Vision needs: No Physical Exam ED Vital Signs: Vital Signs - 24 hr 12/01/23 15:47 12/01/23 18:02 Temperature 98.5 F 98.5 F Pulse Rate 80 80 Respiratory Rate 16 16 Blood Pressure 108/68 108/68 Pulse Oximetry 98 98 Oxygen Delivery Method Room Air Room Air BMI result Body Mass Index 26.6 Const General: cooperative, healthy appearing, comfortable, no acute distress, well developed, alert, awake and Physically active Orientation/consciousness: patient oriented x3 HENMT Head: Yes normal to inspection, Yes No palpable skull fracture present, Yes normocephalic and Yes atraumatic Eyes General: appearance normal, both eyes and all related structures Neck Neck: Yes normal visual inspection, Yes full ROM, Yes no lymphadenopathy, Yes no meningeal signs, Yes trachea midline, Yes supple, No anterior neck swelling and No tender Chest Chest palpation & inspection: normal inspection of the chest and normal palpation of entire chest wall Resp Effort & Inspection: normal respiratory effort and able to speak in complete sentences Auscultation: clear to auscultation bilaterally Cardio Jugular venous distension: no JVD Heart sounds: S1 normal heart sound present and S2 normal heart sound present GI Inspection: Yes normal to inspection Palpation (GI): Soft to palpation, not firm, nontender, no guarding and not rigid Other: refuse pelvic pain General: Yes no CVA tenderness Back/Spine/Pelvis Back: no CVA tenderness and No back tenderness Skin General skin exam: no rashes or lesions noted, elasticity normal and turgor normal Neuro General: patient oriented x3, gait normal, tone normal, moves all extremities, Normal light touch and pain sensation, no meningeal signs, no focal motor deficits, CN's II-XI intact bilaterally and normal sensation to monofilament Extrem General: Yes normal to inspection, Yes full ROM and Yes capillary refill normal Psych Appearance: grossly normal, well kempt and not disheveled Course Course Course Narrative: RME: Done by RIC Gauthier. 33 yold female presents to the ED for foul odor and pink discharge. Patient concerned for STI or . patient admits to unprotected sex. no abdominal tendenrss. uA/ur preg/CTN ordered Medications Administered Discontinued Medications Generic Name Dose Route Start Last Admin Trade Name Freq PRN Reason Stop Dose Admin Ceftriaxone Sodium 500 mg/ 0 mg 12/01/23 17:49 12/01/23 17:59 Lidocaine HCl 1 ml IM 12/01/23 17:50 1 kit ONCE ONE Administration Medical Decision Making Medical Decision Making [facility] Narrative: 33 yold female presents to ED for foul odor with pink vaginal discharge for the past 2 days. Patient admits to unprotected sexual activity. negative. Chlamydia gonorrhea pending. Patient refused pelvic exam. Patient was formed necessity to get pelvic exam to do swabs for chlamydia gonorrhea trich, aria and BV. Patient would like to be treated empirically and follow- up with primary care provider Differential Diagnosis Differential Diagnoses: The differential diagnosis associated with the presentation includes (Chlamydia, gonorrhea, BV, trich, UTI,) Admission/Observation Consideration of admission/observation: Escalation of care including admission/observation considered Lab Data [facility] Lab Attestation statement: I reviewed the patient's lab results. Labs: Lab Results 12/01/23 Range/Units 16:05 Urine Color Yellow Urine Appearance Clear Urine pH 6.5 (5.0-9.0) Ur Specific [place] 1.020 (1.005-1.025) Urine Protein Negative (Neg-Trace) mg/dL Urine Glucose (UA) Negative (Negative) mg/dL Urine Ketones Negative (Negative) mg/dL Urine Blood Negative (Negative) Urine Nitrite Negative (Negative) Ur Leukocyte Esterase Small (1+) H (Negative) Urine RBC 0-2 (0-2) /HPF Urine WBC 0-5 (0-5) /HPF Ur Squamous Epith Cells 0-2 (0-2) /HPF Urine Bacteria 1+ (None Seen) Hyaline Casts 0-2 (0-2) /LPF Urine Test NEGATIVE (NEGATIVE) Chlam trachomat DNA PCR NOT DETECTED (Not Detect.) N.gonorrhoeae DNA (PCR) NOT DETECTED (Not Detect.) Independent Historian Clinical information obtained from an independent historian. History obtained from or confirmed by: Other (Patient) External Record Review External record reviewed: Other (Prior visits) Prescription Management I considered prescription management with: Antibiotic Discharge Plan Discharge Clinical Impression: Dysuria, Vaginal discharge Patient Disposition: Home, Self-Care Instructions: Dysuria (ED), Vaginal Discharge (ED) Additional Instructions: Recommend follow-up with primary care provider. Return to the ED immediately for any abdominal pain, vaginal bleeding worsening vaginal discharge, flank pain, fever, chills, nausea, vomiting, or any other concerning symptoms. Prescriptions: New doxycycline hyclate 100 mg capsule 100 mg PO BID 7 Days Qty: 14 0RF metronidazole 500 mg tablet 500 mg PO Q12H 7 Days Qty: 14 0RF No Action benzonatate 100 mg capsule 100 mg PO Q4H PRN (Reason: cough) Qty: 14 0RF doxycycline hyclate 100 mg capsule 100 mg PO BID 7 Days Qty: 14 0RF Stand Alone Forms: Work/School Release Interventions: ED Discharge Assessment Last Done: 12/01/23 18:02 Discharge Date/Time: 12/01/23 18:05 Print Language: Malaysian
[2023-12-01 16:14] LABS: Appearance Urine Clear; Color Urine Yellow; Glucose Urine UA Negative (Negative); Leukocyte Esterase Urine Small (1+) (Negative); Nitrite Urine Negative (Negative); PH 6.5 (5.0-9.0); UMIC TRIGGER UACC YES; Urine Blood Negative (Negative); Urine Ketones Negative (Negative); Urine Protein Negative (Neg-Trace)
[2023-12-01 16:15] LABS: UPreg QC Valid YES; Urine Pregnancy NEGATIVE (NEGATIVE)
[2023-12-01 16:23] LABS: Bacteria Urine 1+ (None Seen); Hyaline Casts Urine 0-2 /LPF (0-2); RBC Urine 0-2 /HPF (0-2); Squamous Epithelial Cell Urine 0-2 /HPF (0-2); UACC Culture Trigger YES; WBC Urine 0-5 /HPF (0-5)
[2023-12-01] MEDS: cefTRIAXone sodium 500 MG, Lidocaine HCl 1 % MPF 1 ML IM (17:59)
[2023-12-01 18:02] VITALS: BP 108/68; PULSE 80; RESP 16; TEMP 36.9; O2SAT 98
[2023-12-02 03:20] LABS: CT PCR NOT DETECTED (Not Detect.); NG PCR NOT DETECTED (Not Detect.)
== END 2023-12-01 18:05 | disposition home or self-care (01) ==
PROVIDERS: Physician Assistant; Emergency Provider Internal Medicine; PCP Internal Medicine
DX: N89.8 Other specified noninflammatory disorders of vagina (principal); F12.20 Cannabis dependence, uncomplicated; R00.2 Palpitations; F41.9 Anxiety disorder, unspecified; R30.0 Dysuria; Z20.2 Contact with and (suspected) exposure to infections with a predominantly sexual mode of transmission; Z79.899 Other long term (current) drug therapy
CPT/HCPCS: 81001; 81025; 87086; 87491; 87591; 96372; 99282; 99284; J0696

== ENCOUNTER 2023-12-31 07:30 | Emergency (ER) | payer OTHER, SELFPAY ==
--- NOTE | ~2023-12-31 | US_ITS ---
EXAMINATION: US , LIMITED CLINICAL INDICATION: . TECHNIQUE: Real-time transabdominal and transvaginal pelvic ultrasound examinations were performed. COMPARISON: January 04, 2023. FINDINGS: The uterus is retroverted. It measures approximately 7.3 cm in length by 4.3 cm in AP dimension by 5.8 cm in transverse dimension. It appears unremarkable in echotexture. Cervical length measures 3.2 cm. The endometrial stripe measures 8 mm in thickness. No gestational sac is seen in the endometrial cavity. The right ovary measures 2.3 x 1.6 x 1.6 cm. The left ovary measures 3.6 x 2.1 x 2.4 cm. Suspect 1.8 cm left corpus luteum. The ovaries otherwise appear unremarkable on color Doppler and pulse Doppler waveform analysis. No adnexal mass is seen. Trace fluid is identified in the cul-de-sac, nonspecific. US/US OB limited IMPRESSION: No intrauterine gestational sac identified. Therefore, ectopic cannot be confirmed or excluded on the basis of this study alone. Recommend clinical correlation and follow-up as clinically indicated. Retroverted uterus. Electronically signed by: Deandre Ozuna MD 12/31/2023 10:08 AM EDT
[2023-12-31 07:38] VITALS: BP 122/65; PULSE 101; RESP 16; TEMP 36.6; O2SAT 98; BMI 27.5
[2023-12-31 08:00] VITALS: BP 110/70; PULSE 97; RESP 18; TEMP 37.1; O2SAT 97
--- NOTE | 2023-12-31 08:01 | ED.FEMALEGU ---
HPI - Female Genitourinary General Chief complaint: Urogenital-Female Stated complaint: quest UTI Time Seen by Provider: 12/31/23 07:49 Source: patient Mode of arrival: ambulatory Limitations: no limitations History of Present Illness ED Provider: DR. Eaton HPI Narrative: 33-year-old female G 6p2 history of anxiety, cannabis use disorder, palpitation presented to the ED concern of being today, stated that she was seen here 12/01/2023. treated for UTI /STD patient was told she was not then when she did her home it was positive, LMP was 2 months ago. Patient is complaining of left flank pain. Patient declined vaginal discharge bleed, no abdominal cramps. Related Data Previous Rx's ?Medication ?Instructions ?Recorded benzonatate 100 mg capsule 100 mg PO Q4H PRN cough #14 caps 10/18/23 doxycycline hyclate 100 mg capsule 100 mg PO BID 7 days #14 caps 10/18/23 doxycycline hyclate 100 mg capsule 100 mg PO BID 7 days #14 caps 12/01/23 metronidazole 500 mg tablet 500 mg PO Q12H 7 days #14 tabs 12/01/23 cefuroxime axetil 500 mg tablet 500 mg PO BID #14 tabs 12/31/23 Allergies Allergy/AdvReac Type Severity Reaction Status Date / Time No Known Allergies Allergy Verified 12/31/23 07:40 Review of Systems Review of Systems: All other systems are reviewed and are negative Constitutional: Reports as per HPI and Reports no additional constitutional complaints Eyes: Reports as per HPI and Reports no additional eye complaints Reports system reviewed and no additional complaints, except as documented Cardiovascular: Reports as per HPI and Reports no additional cardiovascular complaints Respiratory: Reports as per HPI and Reports no additional respiratory complaints Gastrointestinal: Reports as per HPI and Reports no additional gastrointestinal complaints Genitourinary: Reports no additional female genitourinary complaints Musculoskeletal: Reports no additional musculoskeletal complaints Skin/Breast: Reports system reviewed and no additional complaints, except as docu Psychiatric: Reports no additional psychiatric complaints Endocrine: Reports no additional endocrine complaints Hematologic/Lymphatic: Reports no additional hematologic/lymphatic complaints Allergic/Immunologic: Reports no additional allergic/immunologic complaints Reports system reviewed and no additional complaints, except as documented and Reports Abnormal speech present [facility] Past Medical History Medical History No known health problems Surgical History No pertinent past surgical history Family History Family History Mother Heart disease Father No problems noted. Other Mental health disorder Substance use disorder Social History Social History Housing: Apartment Alcohol intake: never Patient Tobacco Use Status: Current everyday Tobacco user Cigarette Packs Per Day: 0.5 Cigarettes Per Day: 10 Years Smoked: 15 +/- Smoked in Last 30 Days: No e-Cigarette/Vaping Use: Never Used Use of substances other than those prescribed or required for medical reasons: No Substance Use Type: Marijuana Advance Directives: No Advance Directives Information Provided: Yes Patient : Yes Current occupational status: employed Cognitive needs: No Hearing needs: No Vision needs: No Physical Exam Vital Signs: Vital Signs: Last Vital Signs Temp 98.2 F 12/31/23 09:59 Pulse 79 12/31/23 09:59 Resp 18 12/31/23 09:59 BP 104/48 L 12/31/23 09:59 Pulse Ox 98 12/31/23 09:59 O2 Del Method Room Air 12/31/23 09:59 BMI result Body Mass Index 27.5 Vital signs have been reviewed and appear to be correct. Blood pressure elevated. Heart rate elevated. Respiratory rate normal. Temperature normal. Oxygen saturation normal. Appearance: Alert. Oriented X3. No acute distress. Head: Normal external exam. Normocephalic. Atraumatic. No López signs noted. No raccoon eyes noted Eyes: PERRLA. EOMI. Conjunctiva and sclera normal. Eyelids normal. ENT: TM's Normal. Pharynx normal. Uvula midline. Moist mucous membranes. No trismus noted. No drooling noted. No muffled voice noted. Neck: Normal inspection. Neck supple. FROM. No adenopathy. Thyroid Normal. No meningeal signs. No neck mass noted. CVS: Normal heart rate and rhythm. Heart sound normal. No murmurs noted. Pulses normal throughout. Respiratory: No respiratory distress. Painless inspiration. Breath sounds normal. No wheezes/rales/rhonchi noted. Chest nontender. No accessory muscle usage noted or decreased air movement noted. Abdomen: Soft and nontender. Bowel sounds normal in all 4 quadrants. No distention noted. No organomegaly noted. No visible injury noted. Back: No CVA tenderness. Full range of motion noted. Skin: Skin warm and dry. Normal skin color. Normal skin turgor. No rashes/lesions/lacerations noted. Extremities: No lower extremity edema. Extremities exhibit normal range of motion. Extremities nontender. Neuro: Oriented X 3. Cranial nerve exam: II-XII are grossly intact No motor deficit. No sensory deficit. Reflexes normal. Course Reevaluation(s) Reevaluation #1: early stage , no IUP at this point likely because early which is consistent with low HCG, patient currently have no symptoms, no abdominal pain, no vaginal bleed. Otherwise unremarkable labs, blood Rh type is A positive. Start the patient on cefuroxime and instructed to drink plenty of fluids, patient was given contact information of Dr. France to follow with her . Time: 10:09 Medical Decision Making Differential Diagnosis Differential Diagnoses: The differential diagnosis associated with the presentation includes ( Early , ectopic , miscarriage, UTI, electrolyte derangement, severe anemia, pyelonephritis, ABO Rh incompatibility.) Admission/Observation Consideration of admission/observation: Escalation of care including admission/observation considered Lab Data MDM Lab Attestation statement: I reviewed the patient's lab results. 12/31/23 08:20 12/31/23 08:20 Labs: Lab Results 12/31/23 12/31/23 Range/Units 07:50 08:20 WBC 8.0 (4.8-10.8) X10*3/uL RBC 4.19 L (4.20-5.50) X10*6/uL Hgb 12.9 (12.0-16.0) g/dl Hct 36.9 L (37.0-47.0) % MCV 88.1 (80.0-98.0) fL MCH 30.8 (27.0-33.0) pg MCHC 35.0 (31.0-35.0) g/dl RDW 12.5 (11.0-16.0) % Plt Count 233 (160-400) X10*3/uL MPV 10.7 (9.4-12.3) fL Immature Gran % (Auto) 0.6 H (0.0-0.4) % Neut % (Auto) 64.2 (45-73) % Lymph % (Auto) 24.7 (20-40) % [place] % (Auto) 7.4 (2-11) % Eos % (Auto) 2.3 (0-4) % Baso % (Auto) 0.8 (0-2) % Lymph # (Auto) 2.0 (1.2-4.9) X10*3/uL [place] # (Auto) 0.6 (0.1-1.2) X10*3/uL Eos # (Auto) 0.2 (0.0-0.4) X10*3/uL Baso # (Auto) 0.1 (0.0-0.2) X10*3/uL Abs Immat Gran (auto) 0.05 H (0.00-0.03) X10*3/uL Absolute Neuts (auto) 5.1 (2.0-8.3) x10*3/uL Absolute Nucleated RBC 0.000 (0.0-0.012) X10*3/uL Nucleated RBC % (auto) 0.0 (0.0-0.2) /100WBC Sodium 139 (135-145) mmol/L Potassium 4.0 (3.3-5.1) mmol/L Chloride 107 (96-108) mmol/L Carbon Dioxide 24 (22-29) mmol/L Anion Gap 12 (12-20) BUN 9 (9-16) mg/dL Creatinine 0.70 (0.5-1.4) mg/dL Estim Creat Clear Calc 109.7 Estimated GFR > 60 Random Glucose 99 (60-115) mg/dL Calcium 9.0 D (8.4-10.2) mg/dL Beta HCG, Quant 276 mIU/mL Urine Color Yellow Urine Appearance Clear Urine pH 8.0 (5.0-9.0) Ur Specific [place] 1.015 (1.005-1.025) Urine Protein Negative (Neg-Trace) mg/dL Urine Glucose (UA) Negative (Negative) mg/dL Urine Ketones Negative (Negative) mg/dL Urine Blood Negative (Negative) Urine Nitrite Negative (Negative) Ur Leukocyte Esterase Moderate (2+) H (Negative) Urine RBC 0-2 (0-2) /HPF Urine WBC 6-10 H (0-5) /HPF Ur Squamous Epith Cells 11-20 (0-2) /HPF Urine Bacteria 2+ (None Seen) Hyaline Casts 0-2 (0-2) /LPF Urine Test POSITIVE H (NEGATIVE) Blood Type A Positive Independent Interpretation I performed an independent interpretation of an: Ultrasound ( OB ultrasound:No intrauterine gestational sac identified. Therefore, ectopic cannot be confirmed or excluded on the basis of this study alone. Recommend clinical correlation and follow-up as clinically indicated. ) Radiology Impression Discussion of test interpretation with radiology: I have reviewed the radiologist's reading. Discharge Plan Discharge Clinical Impression: Early stage of , UTI (urinary tract infection) during Patient Disposition: Home, Self-Care Instructions: Urinary Tract Infection in (ED) Additional Instructions: drink plenty of fluids, take the antibiotic as prescribed, call Dr. France as we discussed to follow-up with your . Prescriptions: New cefuroxime axetil 500 mg tablet 500 mg PO BID Qty: 14 0RF No Action doxycycline hyclate 100 mg capsule 100 mg PO BID 7 Days Qty: 14 0RF metronidazole 500 mg tablet 500 mg PO Q12H 7 Days Qty: 14 0RF benzonatate 100 mg capsule 100 mg PO Q4H PRN (Reason: cough) Qty: 14 0RF doxycycline hyclate 100 mg capsule 100 mg PO BID 7 Days Qty: 14 0RF Referrals: Shankar France MD [Physician] - Print Language: Sami
[2023-12-31 08:14] LABS: Appearance Urine Clear; Color Urine Yellow; Glucose Urine UA Negative (Negative); Leukocyte Esterase Urine Moderate (2+) (Negative); Nitrite Urine Negative (Negative); Specific Gravity - Urine 1.015 (1.005-1.025); UMIC TRIGGER UACC YES; Urine Blood Negative (Negative); Urine Ketones Negative (Negative); Urine Protein Negative (Neg-Trace)
[2023-12-31 08:16] LABS: UPreg QC Valid YES; Urine Pregnancy POSITIVE (NEGATIVE)
[2023-12-31 08:19] LABS: Bacteria Urine 2+ (None Seen); Hyaline Casts Urine 0-2 /LPF (0-2); RBC Urine 0-2 /HPF (0-2); UACC Culture Trigger YES
[2023-12-31 08:27] LABS: MANUAL DIFF FLAG NO
[2023-12-31 08:30] LABS: Basophils Absolute Auto 0.1 X10*3/uL (0.0-0.2); Basophils Percent Auto 0.8 % (0-2); Eosinophils Absolute Auto 0.2 X10*3/uL (0.0-0.4); Eosinophils Percent Auto 2.3 % (0-4); Hematocrit 36.9 % (37.0-47.0); Hemoglobin 12.9 g/dl (12.0-16.0); Imm Gran Abs Auto 0.05 X10*3/uL (0.00-0.03); Imm Gran Pct Auto 0.6 % (0.0-0.4); Lymphocytes Percent Auto 24.7 % (20-40); Mean Corpuscular Hemoglobin 30.8 pg (27.0-33.0); Mean Corpuscular Volume 88.1 fL (80.0-98.0); Mean Platelet Volume 10.7 fL (9.4-12.3); Monocytes Absolute Auto 0.6 X10*3/uL (0.1-1.2); Monocytes Percent Auto 7.4 % (2-11); Neutrophils Absolute Auto 5.1 x10*3/uL (2.0-8.3); Neutrophils Percent Auto 64.2 % (45-73); Platelet Count 233 X10*3/uL (160-400); Red Blood Count 4.19 X10*6/uL (4.20-5.50); Red Cell Distribution Width 12.5 % (11.0-16.0)
[2023-12-31 08:53] LABS: Anion Gap 12 (12-20); Blood Urea Nitrogen 9 mg/dL (9-16); Carbon Dioxide 24 mmol/L (22-29); Chloride 107 mmol/L (96-108); Creatinine Clr Calc Pharmacy 109.7; Estimated Glomerular Filt Rate > 60; Glucose Random 99 mg/dL (60-115); Sodium 139 mmol/L (135-145)
[2023-12-31 08:55] LABS: HCG Quantitative 276 mIU/mL
[2023-12-31 09:59] VITALS: BP 104/48; PULSE 79; RESP 18; TEMP 36.8; O2SAT 98
[2023-12-31 10:00] VITALS: BP 104/48; PULSE 79; RESP 18; TEMP 36.8; O2SAT 98
[2023-12-31] MEDS: cefuroxime axetiL 500 MG TABLET PO (10:19)
== END 2023-12-31 10:49 | disposition home or self-care (01) ==
PROVIDERS: Emergency Provider Emergency Medicine
DX: O23.42 Unspecified infection of urinary tract in pregnancy, second trimester (principal); N39.0 Urinary tract infection, site not specified; Z3A.00 Weeks of gestation of pregnancy not specified
CPT/HCPCS: 36415; 76815; 80048; 81001; 81025; 84702; 85025; 86900; 86901; 87086; 99284

== ENCOUNTER 2024-01-22 08:46 | Emergency (ER) | payer OTHER, SELFPAY ==
[2024-01-22 08:49] VITALS: BP 97/53; PULSE 64; RESP 16; TEMP 36.8; O2SAT 99; BMI 28.3
--- NOTE | 2024-01-22 09:31 | MHC.EDTECH ---
Patient refused SARS test just wanting to be treated for ear infection
--- NOTE | 2024-01-22 09:33 | ED.GENADULT ---
HPI - General Adult General Chief complaint: Upper Respiratory Symptoms Stated complaint: Ear infection Time Seen by Provider: 01/22/24 09:22 Source: patient Mode of arrival: ambulatory Limitations: no limitations History of Present Illness ED Provider: Marcos Gauthier HPI narrative: 33-year-old female 8 weeks presents to the ED for left ear pain for 3 days and sore throat. Patient denies any chest pain, shortness of breath, leg swelling, calf pain, pleurisy, abdominal cramping, vaginal bleeding, weakness, or diziness. Related Data Previous Rx's ?Medication ?Instructions ?Recorded benzonatate 100 mg capsule 100 mg PO Q4H PRN cough #14 caps 10/18/23 doxycycline hyclate 100 mg capsule 100 mg PO BID 7 days #14 caps 10/18/23 doxycycline hyclate 100 mg capsule 100 mg PO BID 7 days #14 caps 12/01/23 metronidazole 500 mg tablet 500 mg PO Q12H 7 days #14 tabs 12/01/23 cefuroxime axetil 500 mg tablet 500 mg PO BID #14 tabs 12/31/23 amoxicillin 875 mg tablet 875 mg PO Q12H 7 days #14 tabs 01/22/24 Allergies Allergy/AdvReac Type Severity Reaction Status Date / Time No Known Allergies Allergy Verified 01/22/24 08:54 Review of Systems Review of Systems: left ear pain and sore throat Yes all other systems are reviewed and are negative PMFSH Past Medical History Medical History No known health problems Surgical History No pertinent past surgical history Family History Family History Mother Heart disease Father No problems noted. Other Mental health disorder Substance use disorder Social History Social History Housing: Apartment Alcohol intake: never Patient Tobacco Use Status: Current everyday Tobacco user Cigarette Packs Per Day: 0.5 Cigarettes Per Day: 10 Years Smoked: 15 +/- e-Cigarette/Vaping Use: Never Used Substance Use Type: Marijuana Advance Directives: No Advance Directives Information Provided: Yes Do you have a plan to hurt others: No Plan Current occupational status: employed Cognitive needs: No Hearing needs: No Vision needs: No Physical Exam ED Vital Signs: Vital Signs - 24 hr 01/22/24 08:49 01/22/24 10:02 Temperature 98.3 F 98.3 F Pulse Rate 64 64 Respiratory Rate 16 16 Blood Pressure 97/53 L 97/53 L Pulse Oximetry 99 99 Oxygen Delivery Method Room Air Room Air BMI result Body Mass Index 28.3 Const General: cooperative, healthy appearing, comfortable, no acute distress, well developed, alert, awake and Physically active Orientation/consciousness: patient oriented x3 [facility] Head: Yes normal to inspection, Yes No palpable skull fracture present, Yes normocephalic, Yes atraumatic and No abrasion Ears: hearing grossly normal bilaterally, external ears normal, TM normal on the right, EAC's normal, mastoids normal, no periauricular adenopathy and TM abnormal erythematous on the left Throat: Yes posterior oropharynx normal, Yes tonsils normal and Yes uvula midline Eyes General: appearance normal, both eyes and all related structures Neck Neck: Yes normal visual inspection, Yes full ROM, Yes no lymphadenopathy, Yes no meningeal signs, Yes trachea midline, Yes supple, No anterior neck swelling and No tender Chest Chest palpation & inspection: normal inspection of the chest and normal palpation of entire chest wall Resp Effort & Inspection: normal respiratory effort and able to speak in complete sentences Auscultation: clear to auscultation bilaterally Cardio Jugular venous distension: no JVD Heart sounds: S1 normal heart sound present and S2 normal heart sound present GI Inspection: Yes normal to inspection Palpation (GI): Soft to palpation, not firm, nontender, no guarding and not rigid General: Yes no CVA tenderness Back/Spine/Pelvis Back: no CVA tenderness and No back tenderness Skin General skin exam: no rashes or lesions noted, elasticity normal and turgor normal Neuro General: patient oriented x3, gait normal, tone normal, moves all extremities, Normal light touch and pain sensation, no meningeal signs, no focal motor deficits, CN's II-XI intact bilaterally and normal sensation to monofilament Extrem General: Yes normal to inspection, Yes full ROM and Yes capillary refill normal Psych Appearance: grossly normal, well kempt and not disheveled Medical Decision Making Medical Decision Making MDM Narrative: 33-year-old female it was with no abdominal pain, vaginal bleeding, abdominal cramping presents to ED for left ear pain and sore throat. Patient denies any chest pain, shortness of breath, leg swelling, pitting edema, calf pain. Patient does not want SARs or strep test. Patient states recurrent history of ear infection would like antibiotics. Patient explained worrisome signs informed to return to the ED immediately. As per up-to-date. Amoxicillin is safe in patient well-appearing. Not suspecting PE, CHF, cardiomyopathy, pneumonia, DVT, peritonsillar abscess, mastoiditis, otitis media, Lucas's angina, or any other life-threatening etiologies. Not suspecting ectopic . Differential Diagnosis Differential Diagnoses: The differential diagnosis associated with the presentation includes (COVID, RSV, influenza, strep, otitis media, otitis externa) Admission/Observation Consideration of admission/observation: Escalation of care including admission/observation considered Independent Historian Clinical information obtained from an independent historian. History obtained from or confirmed by: Other (Patient) External Record Review External record reviewed: Other (Prior visits) Prescription Management I considered prescription management with: Antibiotic Discharge Plan Discharge Clinical Impression: Otitis media Patient Disposition: Home, Self-Care Instructions: Ear Infection (ED) Additional Instructions: Recommend follow-up with primary care provider and OBGYN. Return to the ED immediately for any worsening ear pain, redness swelling behind for any ear, ear discharge, chest pain, shortness of breath, abdominal pain, vaginal bleeding, vaginal discharge, or any other concerning symptoms. You can only take Tylenol while Prescriptions: New amoxicillin 875 mg tablet 875 mg PO Q12H 7 Days Qty: 14 0RF No Action doxycycline hyclate 100 mg capsule 100 mg PO BID 7 Days Qty: 14 0RF metronidazole 500 mg tablet 500 mg PO Q12H 7 Days Qty: 14 0RF cefuroxime axetil 500 mg tablet 500 mg PO BID Qty: 14 0RF benzonatate 100 mg capsule 100 mg PO Q4H PRN (Reason: cough) Qty: 14 0RF doxycycline hyclate 100 mg capsule 100 mg PO BID 7 Days Qty: 14 0RF Stand Alone Forms: Work/School Release Interventions: ED Discharge Assessment Last Done: 01/22/24 10:02 Discharge Date/Time: 01/22/24 10:03 Print Language: Sammarinese
[2024-01-22 10:02] VITALS: BP 97/53; PULSE 64; RESP 16; TEMP 36.8; O2SAT 99
== END 2024-01-22 10:03 | disposition home or self-care (01) ==
PROVIDERS: Emergency Provider Emergency Medicine Emergency Medical Services
DX: H66.92 Otitis media, unspecified, left ear (principal); H92.02 Otalgia, left ear; J02.9 Acute pharyngitis, unspecified; F17.210 Nicotine dependence, cigarettes, uncomplicated
CPT/HCPCS: 99282

== ENCOUNTER 2024-02-01 08:06 | Outpatient (AMB) | payer OTHER, SELFPAY ==
[2024-02-01 08:26] VITALS: BP 100/66; PULSE 70; TEMP 36.8; O2SAT 97
--- NOTE | 2024-02-01 08:26 | MHC.OFFWIV ---
Intake Vital Signs 02/01/24 08:26 Height 5 ft 4 in BP 100/66 Blood Pressure Location Rt brachial Position Sitting Pulse 70 Pulse Source Pulse Oximeter Temp 98.2 F Temp Source Oral Pulse Oximetry (%) 97 Oxygen Delivery Method Room Air Intake Visit Reasons: EP Ear pain, throat pain Intake Note: pt is here for follow up care, went to ED at [facility] and was given amox for ear infection. patient is 8 weeks and states she hasnt felt better since the completion of the amox Patient Tobacco Use Status: Current everyday Tobacco user Allergies No Known Allergies Allergy (Verified 02/01/24 08:27) Do you need a note to return to daycare/school/sports/work: No HPI EP Ear pain, throat pain HPI Details This note is constructed using voice recognition software. While every effort has been made to ensure accuracy, catering cook errors may have been included. The patient is a 33 year old female who presents to the clinic today with ear pain throat pain, and mild cough. She reports that she was treated at [facility] for otitis media on the left recently, finished her antibiotics, but now she has discomfort on the right ear, which he did not have previously. She is currently . She denies fever, chills, shortness of breath. She reports the cough to be dry and irritating, with clear secretions when she does get anything up. [facility] Medical History No known health problems Surgical History No pertinent past surgical history Family History Mother Heart disease Father No problems noted. Other Mental health disorder Substance use disorder Social History Housing: Apartment Alcohol intake: never Patient Tobacco Use Status: Current everyday Tobacco user Cigarette Packs Per Day: 0.5 Cigarettes Per Day: 10 Years Smoked: 15 +/- e-Cigarette/Vaping Use: Never Used Substance Use Type: Marijuana Current occupational status: employed Cognitive needs: No Hearing needs: No Vision needs: No Review of Systems Const All systems reviewed & are unremarkable except as noted in HPI and below Physical Exam Vital Signs: Last Vital Signs Temp 98.2 F 02/01/24 08:26 Pulse 70 02/01/24 08:26 BP 100/66 02/01/24 08:26 Pulse Ox 97 02/01/24 08:26 Oxygen Delivery Method Room Air 02/01/24 08:26 Const General: cooperative, healthy appearing, comfortable and no acute distress Orientation/consciousness: patient oriented x3 Limitations: no limitations HEENT Head: Yes normal to inspection Ears: hearing grossly normal bilaterally, external ears normal and TM abnormal retracted General nose exam: Normal external nose present, No nasal discharge present and Abnormal mucous membranes and turbinates present boggy and pale Face and sinus: Yes normal facial exam and Yes sinuses nontender Mouth: Normal oral and palatal mucosa present and moist mucous membranes Throat: Yes tonsils normal, Yes uvula midline, Yes posterior oropharynx abnormal (Erythema), Yes postnasal drainage and Yes cobblestoning Eyes General: appearance normal, both eyes and all related structures Neck Neck: Yes normal visual inspection Resp Effort & Inspection: normal respiratory effort, able to speak in complete sentences, Actively coughing, no respiratory distress, not tachypneic, no tripod positioning and no use of accessory muscles Auscultation: clear to auscultation bilaterally Cardio Rate: regular rate Rhythm: regular rhythm Heart sounds: normal S1 and S2 Skin General skin exam: no rashes or lesions noted Neuro General: patient oriented x3 Extrem General: Yes normal to inspection and Yes no clubbing, cyanosis or edema Assessment & Plan Assessment & Plan (1) Allergic rhinitis: Code(s): J30.9 - Allergic rhinitis, unspecified Qualifiers: Allergic rhinitis trigger: unspecified Allergic rhinitis seasonality: unspecified Qualified Code(s): J30.9 - Allergic rhinitis, unspecified Plan: Supportive measures encouraged and reviewed. Advised patient to try a second-generation antihistamine such as Claritin. Advised consideration of sinus rinse if needed. Advised patient to follow up with primary care provider with worsening or failure to resolve. Plan See above for full details and plan. Coding Level of Care Code Est Pt Level 3 (86159) Diagnoses Allergic rhinitis, unspecified seasonality, unspecified trigger J30.9 Allergic rhinitis trigger: unspecified Allergic rhinitis seasonality: unspecified
== END 2024-02-01 08:42 | disposition home or self-care (01) ==
PROVIDERS: Visit Provider Registered Nurse
DX: J30.9 Allergic rhinitis, unspecified (principal)

== ENCOUNTER → 2024-02-01 08:06 | Outpatient (BNVA) | payer OTHER, SELFPAY | PROVIDERS: Visit Provider Registered Nurse | DX: J30.9 Allergic rhinitis, unspecified (principal) | CPT/HCPCS: 99212 ==

== ENCOUNTER 2024-09-01 19:13 | Emergency (ER) | payer OTHER, SELFPAY ==
[2024-09-01 19:16] VITALS: BP 113/74; PULSE 115; RESP 20; TEMP 36.6; O2SAT 97; BMI 37.7
--- NOTE | 2024-09-01 19:16 | ED_ITS ---
HPI - General Adult General Chief complaint: Upper Respiratory Symptoms Stated complaint: ear infection / congestion Related Data Home Medications ?Medication ?Instructions ?Recorded ?Confirmed ondansetron 4 mg disintegrating 4 mg PO Q6-8H PRN 01/19 06/11 tablet vitamin no.115-iron 29 1 tab PO DAILY 4 mg-folic acid 1 mg chewable tablet ( 19) Allergies Allergy/AdvReac Type Severity Reaction Status Date / Time No Known Allergies Allergy Verified 09/01/24 19:19 [facility] Past Medical History Medical History No known health problems Surgical History No pertinent past surgical history Family History Family History Mother Heart disease Father No problems noted. Other Mental health disorder Substance use disorder Social History Social History Housing: Apartment Alcohol intake: never Patient Tobacco Use Status: Current everyday Tobacco user Cigarette Packs Per Day: 0.5 Cigarettes Per Day: 10 Years Smoked: 15 +/- Smoked in Last 30 Days: Yes e-Cigarette/Vaping Use: Never Used Use of substances other than those prescribed or required for medical reasons: No Substance Use Type: Marijuana Advance Directives: No Advance Directives Information Provided: No Current occupational status: employed Cognitive needs: No Hearing needs: No Vision needs: No Physical Exam ED Vital Signs: BMI result Body Mass Index 37.7 Course Course Course Narrative: This is a rapid medical exam performed by Topher Mclain NP: Additional HPI, ROS, PE not included below will be deferred to primary provider. Patient is a female, due date is tomorrow, states already passed her mucous plug today pre senting with 3 weeks of cough productive of sputum, congestion and left ear pain. States I don't want a chest x-ray or anything I just want to get antibiotics. Unable to visualize TMs bilat due to cerumen. Medical Decision Making Lab Data Labs: Lab Results 09/01/24 Range/Units 19:29 Influenza Type A (PCR) NEGATIVE (Negative) Influenza Type B (PCR) NEGATIVE (Negative) RSV RNA Qual (PCR) NEGATIVE (Negative) SARS-CoV-2 RNA (RT-PCR) NEGATIVE (Negative) S. pyogenes GrpA SHERITA Negative (Negative) Discharge Plan Discharge Clinical Impression: Upper respiratory infection Patient Disposition: Left W/O Completing Treatment Prescriptions: No Action 19 29 mg iron- 1 mg tablet,chewable 1 tab PO DAILY ondansetron 4 mg tablet,disintegrating 4 mg PO Q6-8H PRN Discharge Date/Time: 09/01/24 21:03
[2024-09-01 19:58] LABS: IDNOW Serial# 6674DD1D; Strep A Nucleic Acid Negative (Negative)
[2024-09-01 20:15] VITALS: BP 101/53; PULSE 69; RESP 18; TEMP 36.3; O2SAT 95
[2024-09-01 20:17] LABS: Influenza A PCR NEGATIVE (Negative); Influenza B PCR NEGATIVE (Negative); Resp Syncy Virus RNA Qual PCR NEGATIVE (Negative); SARS COV2 PCR INHOUSE NEGATIVE (Negative)
--- NOTE | 2024-09-01 20:57 | PC.NURSE ---
Pt. states she does want to stay to wait for a provider, just wants amoxicillin to go. Apologized to pt for the delay, informed patient they need to see a provider in order to get Rx & should be seen soon. Patient verbalized understanding, but still wants to go. Informed pt we cannot make her stay, but she won't be able to get a Rx w/o provider evaluation. Pt oberved walking with a steady gait out of dept. hat and cap drying room attendant Jess made aware.
--- NOTE | 2024-09-01 20:58 | PC.NURSE ---
Patient came out to triage from her assigned room asking this RN to give her her results. This RN offered to assist patient back to her room where the provider will review results with her. Patient states she is all set and left the ED.
== END 2024-09-01 21:03 | disposition left against medical advice (07) ==
PROVIDERS: Emergency Provider Emergency Medicine
DX: O98.513 Other viral diseases complicating pregnancy, third trimester (principal); J06.9 Acute upper respiratory infection, unspecified; Z03.818 Encounter for observation for suspected exposure to other biological agents ruled out; R05.9 Cough, unspecified; Z3A.42 42 weeks gestation of pregnancy
CPT/HCPCS: 0241U; 87651; 99283; 99284

== ENCOUNTER 2024-10-04 10:58 | Outpatient (AMB) | payer OTHER, SELFPAY ==
[2024-10-04 11:02] VITALS: BP 116/70; PULSE 100; TEMP 36.7; O2SAT 97; BMI 33.6
--- NOTE | 2024-10-04 11:02 | MHC.OFFWIV ---
Intake Vital Signs 10/04/24 11:02 Height 5 ft 4 in Weight 196 lb BMI 33.6 BP 116/70 Blood Pressure Location Lt brachial Position Sitting Pulse 100 Pulse Source Pulse Oximeter Temp 98.1 F Temp Source Oral Pulse Oximetry (%) 97 Oxygen Delivery Method Room Air Intake Visit Reasons: EP-lt side stomach burning pain Intake Note: Patient present with left side stomach internal burning times 5 days Patient Tobacco Use Status: Current everyday Tobacco user Gynecological Assistant Required: No Is last menstrual period known: Yes Last menstrual period: 09/12/24 Post menopausal: No Patient : No Allergies No Known Allergies Allergy (Verified 10/04/24 11:09) Do you need a note to return to daycare/school/sports/work: No HPI EP-lt side stomach burning pain HPI Details This is a 34 year old female patient who presents to the [place] clinic today with report of left sided abdominal burning for the last 5 days. Denies any associated: constipation, diarrhea, nausea, vomiting, fever, chills, urinary symptoms. Patient cannot identify any exacerbating or alleviating factors. Pain seems to come and go. States that she had a vaginal 3 weeks ago, without complications. Has been taking Motrin several times per day for general involutional cramps. Had Depo shot. [facility] Medical History No known health problems Surgical History No pertinent past surgical history Family History Mother Heart disease Father No problems noted. Other Mental health disorder Substance use disorder Social History Housing: Apartment Alcohol intake: never Patient Tobacco Use Status: Current everyday Tobacco user Cigarette Packs Per Day: 0.5 Cigarettes Per Day: 10 Years Smoked: 15 +/- e-Cigarette/Vaping Use: Never Used Substance Use Type: Marijuana Patient : No Current occupational status: employed Cognitive needs: No Hearing needs: No Vision needs: No Female Reproductive History Menstrual Date of last menstrual period: 09/12/24 Review of Systems Const All systems reviewed & are unremarkable except as noted in HPI and below Physical Exam Vital Signs: Last Vital Signs Temp 98.1 F 10/04/24 11:02 Pulse 100 10/04/24 11:02 BP 96/70 10/04/24 11:02 Pulse Ox 97 10/04/24 11:02 Oxygen Delivery Method Room Air 10/04/24 11:02 BMI result Body Mass Index 33.6 Const General: cooperative, healthy appearing, comfortable and no acute distress HEENT Head: Yes normal to inspection Resp Effort & Inspection: normal respiratory effort Auscultation: clear to auscultation bilaterally Cardio Rate: regular rate Rhythm: regular rhythm GI Inspection: Yes normal to inspection Palpation (GI): Soft to palpation and No hepatosplenomegaly present Auscultation: normal bowel sounds General: Yes bladder normal to palpation and Yes no CVA tenderness Bimanual exam- vagina & uterus: bladder normal to palpation Back/Spine/Pelvis Back: no CVA tenderness Skin General skin exam: no rashes or lesions noted Extrem General: Yes capillary refill normal and Yes no clubbing, cyanosis or edema Psych Appearance: grossly normal Mental Status: mental status grossly normal Speech and movement: Normal speech and movement present Assessment & Plan Assessment & Plan (1) Left sided abdominal pain: Code(s): R10.9 - Unspecified abdominal pain Plan: I cannot reproduce pain with palpation. Abdomen is soft and nontender on exam. There are no concerning associated symptoms. Her delivery was vaginal without complications. She has had post- visit and they did not have any concerns. She has been taking Motrin/excedrin frequently, which I advised she cut down on and try Tylenol instead to see if this alleviates symptoms. She can try Prilosec, which she asked that I prescribe. She has an appt. with PCP Dr. Vogel in a few weeks. In the meantime however, we discussed that if she develops any associated symptoms such as fever, worsening pain, bowel issues, vomiting, she should go to the emergency department for evaluation. She verbalizes understanding and agrees to plan. Medications: New omeprazole 10 mg PO DAILY 14 caps 0RF 2 weeks Coding Level of Care Code Est Pt Level 4 (60799) Diagnoses Left sided abdominal pain R10.9
--- OUTSIDE RECORDS SUMMARY | 2024-10-04 11:46 | XMS_ITS | Clinical Summary ---
Author Organization [facility] Address [address] [place] [address] Phone Care Team Providers Care Plumbing Drafter Name Role Phone Physician, Pcp Unknown Primary Care Provider Yamila vailable Allergies No known active allergies Encounters Date Type Department Care Team Description 07/23/2024 11:57 AM EDT - 07/23/2024 1:52 PM EDT Emergency [facility] Emergency [address] [place] [address] Jean Bowden MD Sprain of left ankle, initial encounter (Primary Dx) Discharge Disposition: Home or Self Care from Last 3 Months Surgical History Surgery Date Site/Laterality Comments OTHER SURGICAL HISTORY PROCEDURE: DENIES PREVIOUS SURGERY Family History Medical History Relation Name Comments Heart attack Aunt 1 Depression Brother 1 Stomach cancer Maternal Grandmother Heart attack Mother Relation Name Status Comments Aunt 1 Aunt 2 Brother 1 Brother 2 Alive Brother 3 Alive depression Father Alive not known Maternal Grandmother Mother Alive depression, [place] Sister Alive Uncle [place] Social History Tobacco Use Types Packs/Day Years Used Date Smoking Tobacco: Every Day Cigarettes Smokeless Tobacco: Never Alcohol Use Standard Drinks/Week Comments No 0 (1 standard drink = 0.6 oz pur e alcohol) Comments Yes Sex and Gender Information Value Date Recorded Sex Assigned at Not on file Legal Sex Female 9:14 AM EST Gender Identity Not on file Sexual Orientation Not on file Obstetrics History Para Term AB IAB SAB Ectopic Multiple Livin g Live Births 1 Date Outcome GA Total Labor Labor/2nd/3rd Weight Sex Type Anes PTL Teresa A1 A5 Name Clin Current Last Filed Vital Signs Vital Sign Reading Time Taken Comments Blood Pressure 105/74 07/23/2024 1:04 PM EDT Pulse 68 07/23/2024 1:04 PM EDT Temperature 36.4 C (97.5 F) 07/23/2024 1:04 PM EDT Respiratory Rate 16 07/23/2024 1:04 PM EDT Oxygen Saturation 98% 07/23/2024 1:04 PM EDT Inhaled Oxygen Concentration - - Weight - - Height - - Body Mass Index - - Plan of Treatment Health Maintenance Due Date Last Done Comments Hepatitis B Vaccines (2 of 3 - 3-dose series) 09/25/1999 08/28/1999 Hepatitis A Vaccines (1 of 2 - Risk 2-dose series) 08/12/2007 Pneumococcal Vaccine: Pediatrics (0 to 5 Years) and At-Risk Patients (6 to 49 Years) (1 of 2 - PCV) 08/12/2007 Cervical Cancer Screening: Pap Smear 2009 HPV Vaccines (2 - 3-dose series) 02/08/2011 01/11/2011 Cholesterol Screening (Lipid Panel) 02/21/2022 Depression Screening 02/21/2022 HIV Screening 02/21/2022 Hepatitis C Screening 02/21/2022 Social Influencers of Health Screening 02/21/2022 COVID-19 Vaccine ( - season) 2023 Influenza Vaccine (#1) 2024 12/20/2012 DTaP,Tdap,and Td Vaccines (11 - Td or Tdap) 05/27/2031 05/26/2021, 06/19/2017, 08/22/2013, Additional history exists HIB Vaccines Completed 12/28/1989 IPV Vaccines Completed 06/19/1993, 05/1990, 03/25/1989, Additional history exists Meningococcal ACWY Vaccine Aged Out N o longer eligible based on patient's age to complete this topic Meningococcal B Vaccine Aged Out No l onger eligible based on patient's age to complete this topic RSV Immunization Patients Under 20 months Aged Out No longer eligible based on patient's age to complete this topic Procedures Procedure Name Priority Date/Time Associated Diagnosis Comments XR ANKLE 3+ VIEWS RIGHT STAT 07/23/2024 12:17 PM EDT from Last 3 Months Results * XR Ankle 3+ Views Right (07/23/2024 12:17 PM EDT) Anatomical Region Laterality Modality Lower Extremities, Ankle Right Radiogr aphic Imaging 07/23/2024 12:2 5 PM EDT Impressions 07/23/2024 12:28 PM EDT FINDINGS/IMPRESSION: Three views of the ankle demonstrating age-indeterminate but presumed chronic avulsion injuries involving the medial and lateral malleoli. Soft tissue swelling. No acute/displaced fractures are evident otherwise. -------- FINAL REPORT -------- Dictated By: Aaron Dee Dictated Date: 07/23/2024 12:25 ET Assigned Physician: Aaron Dee Reviewed and Electronically Signed By: Aaron Dee Signed Date: 07/23/2024 12:28 ET Workstation ID: [id number] Transcribed By: Self Edit Transcribed Date: 07/23/2024 12:25 ET Narrative 07/23/2024 12:28 PM EDT XR ANKLE 3+ VIEWS RIGHT INDICATION: Ankle pain, no prior imaging TECHNIQUE: XR ANKLE 3+ VIEWS RIGHT COMPARISON: No priors available. Procedure Note Aaron Dee MD - 07/23/2024 XR ANKLE 3+ VIEWS RIGHT INDICATION: Ankle pain, no prior imaging TECHNIQUE: XR ANKLE 3+ VIEWS RIGHT COMPARISON: No priors available. IMPRESSION: FINDINGS/IMPRESSION: Three views of the ankle demonstratingage-indeterminate but presumed chronic avulsion injuries involving themedial and lateral malleoli. Soft tissue swelling. No acute/displacedfractures are evident otherwise. -------- FINAL REPORT -------- Dictated By: Aaron Dee Dictated Date: 07/23/2024 12:25 ET Assigned Physician: Aaron Dee Reviewed and Electronically Signed By: Aaron Dee Signed Date: 07/23/2024 12:28 ET Workstation ID: [id number] Transcribed By: Self Edit Transcribed Date: 07/23/2024 12:25 ET Jean Bowden MD IMG XR PROCEDURES Final R esult from Last [address] [facility] [place] [address] Care Teams Plumbing Drafter Relationship Specialty Start Date End Date Physician, Pcp Unknown PCP - General 07/23/24
--- OUTSIDE RECORDS SUMMARY | 2024-10-04 11:46 | XMS_ITS | Clinical Summary ---
Author Organization [facility] Address [address] [place] [address] Care Team Providers Care Medical Review Specialist Name Role Phone Pcp, No Primary Care Provider Unavailabl e Allergies No known active allergies Social History Tobacco Use Types Packs/Day Years Used Date Smoking Tobacco: Never Assessed Comments No Sex and Gender Information Value Date Recorded Sex Assigned at Not on file Legal Sex Female 8:51 PM EDT Gender Identity Not on file Sexual Orientation Not on file Last Filed Vital Signs Vital Sign Reading Time Taken Comments Blood Pressure 115/86 09/02/2020 9:04 PM EDT Pulse 86 09/02/2020 9:04 PM EDT Temperature 35.8 C (96.4 F) 09/02/2020 9:04 PM EDT Respiratory Rate 18 09/02/2020 9:04 PM EDT Oxygen Saturation 100% 09/02/2020 9:04 PM EDT Inhaled Oxygen Concentration - - Weight - - Height - - Body Mass Index - - Plan of Treatment Health Maintenance Due Date Last Done Comments Hepatitis C Virus Screening 1988 HIV Screening 2001 DTaP/Tdap/Td Vaccines (1 - Tdap) 08/12/2007 Hepatitis B Vaccines (1 of 3 - 19+ 3-dose series) 08/12/2007 Pap Smear (Ages 21-65) 2009 COVID-19 Vaccine ( - 2023-2 5 season) 2023 Influenza Vaccine 10/19/2024 HPV Vaccines Aged Out No longer eligi ble based on patient's age to complete this topic Pneumococcal Vaccine: Pediat bernie (0-5 Years) and At-Risk Patients (6 to 49 Years) Aged Out No longer eligible b ased on patient's age to complete this topic Insurance [place]NA SINGH [id number] [facility] Care Teams Medical Review Specialist Relationship Specialty Start Date End Date Pcp, No PCP - General General Medicine 09/02/20
== END 2024-10-04 12:04 | disposition home or self-care (01) ==
PROVIDERS: Visit Provider Nurse Practitioner Family
DX: R10.9 Unspecified abdominal pain (principal)

== ENCOUNTER → 2024-10-04 10:58 | Outpatient (BNVA) | payer OTHER, SELFPAY | PROVIDERS: Visit Provider Nurse Practitioner Family | DX: R10.9 Unspecified abdominal pain (principal) | CPT/HCPCS: 99212 ==

== ENCOUNTER 2024-10-04 21:37 | Emergency (ER) | payer OTHER, SELFPAY ==
[2024-10-04 21:46] VITALS: BP 126/74; PULSE 81; RESP 16; TEMP 36.9; O2SAT 98; BMI 33.8
--- OUTSIDE RECORDS SUMMARY | 2024-10-04 21:58 | XMS_ITS | Clinical Summary ---
Author Organization [facility] Address [address] [place] [address] Phone Care Team Providers Care Industrial Accountant Name Role Phone Physician, Pcp Unknown Primary Care Provider Yamila vailable Allergies No known active allergies Encounters Date Type Department Care Team Description 07/23/2024 11:57 AM EDT - 07/23/2024 1:52 PM EDT Emergency [facility] Emergency [address] [place] [address] Jean Bowden MD Sprain of [...] not known Maternal Grandmother Mother Alive depression, [place] Sister Alive Uncle [place] Social History Tobacco Use Types Packs/Day Years [...] Signed Date: 07/23/2024 12:28 ET Workstation ID: [id number] Transcribed By: Self Edit Transcribed Date: 07/23/2024 [...] Signed Date: 07/23/2024 12:28 ET Workstation ID: [id number] Transcribed By: Self Edit Transcribed Date: 07/23/2024 12:25 ET Jean Bowden MD IMG XR PROCEDURES Final R esult from Last 3 Months Insurance [place] [address] Care Teams Industrial Accountant Relationship Specialty Start Date End Date Physician, Pcp Unknown PCP - General 07/23/24
--- OUTSIDE RECORDS SUMMARY | 2024-10-04 21:58 | XMS_ITS | Clinical Summary ---
Author Organization [facility] Address [address] [place] [address] Care Team Providers Care Aeronautics Teacher Name Role Phone Pcp, No Primary Care [...] to complete this topic Insurance [place]DANA S[place]H [id number] [facility] Care Teams Aeronautics Teacher Relationship Specialty Start Date End Date Pcp, No PCP - General General Medicine 09/02/20
[2024-10-04 22:02] LABS: Appearance Urine Clear; Glucose Urine UA Negative (Negative); PH 7.5 (5.0-9.0); Specific Gravity - Urine 1.020 (1.005-1.025); UMIC TRIGGER UACC YES
[2024-10-04 22:07] LABS: UACC Culture Trigger YES
--- NOTE | 2024-10-04 22:21 | ED_ITS ---
HPI - Female Genitourinary General Chief complaint: Urogenital-Female Stated complaint: UTI Time Seen by Provider: 10/04/24 22:18 Source: patient Mode of arrival: ambulatory Limitations: no limitations History of Present Illness ED Provider: HPI Narrative: Patient's 20 days comes here for 4 days of dysuria and frequency and slight left flank pain no fever no chills no nausea no vomiting patient does get frequent urinary tract infection in the past Related Data Previous Rx's ?Medication ?Instructions ?Recorded cefuroxime axetil 500 mg tablet 500 mg PO BID 7 days # 14 tabs 10/04/24 nitrofurantoin 100 mg PO BID 7 days #14 cap s 10/04/24 monohydrate/macrocrystals 100 mg capsule (Macrobid) omeprazole 10 mg capsule,delayed 10 mg PO DAILY 2 week s #14 caps 10/04/24 release Allergies Allergy/AdvReac Type Severity Reaction Status Date / Time No Known Allergies Allergy Verified 10/04/24 21:50 Review of Systems Review of Systems: Yes all other systems are reviewed and are negative [facility] Past Medical History Medical History No known health problems Surgical History No pertinent past surgical history Family History Family History Mother Heart disease Father No problems noted. Other Mental health disorder Substance use disorder Social History Social History Housing: Apartment Alcohol intake: never Patient Tobacco Use Status: Current everyday Tobacco user Cigarette Packs Per Day: 0.5 Cigarettes Per Day: 10 Years Smoked: 15 +/- Smoked in Last 30 Days: No e-Cigarette/Vaping Use: Never Used Use of substances other than those prescribed or required for medical reasons: No Substance Use Type: Marijuana Advance Directives: No Advance Directives Information Provided: No Patient : No Current occupational status: employed Cognitive needs: No Hearing needs: No Vision needs: No Physical Exam Vital Signs: Vital Signs: Last Vital Signs Temp 98.6 F 10/05/24 00:10 Pulse 83 10/05/24 00:10 Resp 16 10/05/24 00:10 BP 124/68 10/05/24 00:10 Pulse Ox 98 10/05/24 00:10 O2 Del Method Room Air 10/05/24 00:10 BMI result Body Mass Index 33.8 Appearance: Alert. Oriented X3. No acute distress. Eyes: no pallor or icterus ENT: Pharynx normal Oral Mucosa moist tympanic membrane intact no erythema, Neck: Normal inspection. Neck supple. CVS: Normal heart rate and rhythm. Pulses normal. Respiratory: No respiratory distress. Equal air entry bilateral, no wheezing/rales/rhonchi Abd: soft, not tender no CVA tenderness Skin: Skin warm and dry. Normal skin color. Normal skin turgor. Extremities: No lower extremity edema, no calf tenderness Neuro: Oriented X 3. Medications Administered Discontinued Medications Generic Name Dose Route Start Last Admin Trade Name Freq PRN Reason Stop Dose Admin Cefuroxime Axetil 500 mg 10/04/24 22:22 10/04/24 23:04 Cefuroxime Axetil 500 Mg Tablet PO 10/04/24 22:23 500 mg ONCE ONE Administration Phenazopyridine HCl 200 mg 10/04/24 22:51 10/04/24 23:04 Phenazopyridine Hcl 200 Mg Tablet PO 10/04/24 22:52 200 mg ONCE ONE Administration Medical Decision Making Medical Decision Making [facility] Narrative: Patient's uncomplicated UTI will prescribe cefuroxime and Pyridium Lab Data [facility] Lab Attestation statement: I reviewed the patient's lab results. Labs: Lab Results 10/04/24 Range/Units 21:56 Urine Color Yellow Urine Appearance Clear Urine pH 7.5 (5.0-9.0) Ur Specific [place] 1.020 (1.005-1.025) Urine Protein Trace (Neg-Trace) mg/dL Urine Glucose (UA) Negative (Negative) mg/dL Urine Ketones Trace (Negative) mg/dL Urine Blood Large (3+) H (Negative) Urine Nitrite Negative (Negative) Ur Leukocyte Esterase Large (3+) H (Negative) Urine RBC >20 H (0-2) /HPF Urine WBC 11-20 H (0-5) /HPF Ur Squamous Epith Cells 11-20 (0-2) /HPF Urine Bacteria 4+ (None Seen) Hyaline Casts 0-2 (0-2) /LPF Discharge Plan Discharge Clinical Impression: Urinary tract infection Patient Disposition: Home, Self-Care Instructions: Urinary Tract Infection in Women (DC) Additional Instructions: Drink plenty of fluids Take antibiotic as prescribed Follow with your PCP/ED if not better/vomiting/high fever Prescriptions: New cefuroxime axetil 500 mg tablet 500 mg PO BID 7 Days Qty: 14 0RF nitrofurantoin monohyd/m-cryst [Macrobid] 100 mg capsule 100 mg PO BID 7 Days Qty: 14 0RF Rx Instructions: must administer with a meal/food No Action omeprazole 10 mg capsule,delayed release(DR/EC) 10 mg PO DAILY 14 Days Qty: 14 0RF Interventions: ED Discharge Assessment Last Done: 10/05/24 00:10 Discharge Date/Time: 10/04/24 23:05 Print Language: Haitian
[2024-10-05 00:10] VITALS: BP 124/68; PULSE 83; RESP 16; TEMP 37; O2SAT 98
== END 2024-10-04 23:05 | disposition home or self-care (01) ==
PROVIDERS: Emergency Provider Internal Medicine
DX: N39.0 Urinary tract infection, site not specified (principal); R30.0 Dysuria; R35.0 Frequency of micturition; R10.2 Pelvic and perineal pain; F17.210 Nicotine dependence, cigarettes, uncomplicated
CPT/HCPCS: 81001; 81003; 87086; 99283; 99284

== ENCOUNTER 2025-01-24 07:54 | Outpatient (REF) | payer OTHER, SELFPAY | END 2025-01-24 07:55 | disposition home or self-care (01) | LOC: HO.LAB 07:54 | PROVIDERS: PCP Internal Medicine; Visit Provider Physician Assistant Medical | DX: R30.0 Dysuria (principal); Z13.89 Encounter for screening for other disorder | CPT/HCPCS: 81003; 87086; 99212 ==

== ENCOUNTER 2025-01-24 07:54 | Outpatient (AMB) | payer OTHER, SELFPAY ==
--- OUTSIDE RECORDS SUMMARY | 2025-01-24 07:57 | XMS_ITS | Clinical Summary ---
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 Name Role Phone Physician, Pcp Unknown Primary Care Provider Yamila vailable Allergies No known active allergies Surgical History Surgery Date Site/Laterality Comments OTHER SURGICAL HISTORY PROCEDURE: DENIES PREVIOUS SURGERY Family History Medical History Relation Name Comments Heart attack Aunt 1 Depression Brother 1 Stomach cancer Maternal Grandmother Heart attack Mother Relation Name Status Comments Aunt 1 Aunt 2 Brother 1 Brother 2 Alive Brother 3 Alive depression Father Alive not known Maternal Grandmother Mother Alive depression, MD Sister Alive Uncle MD Social History Tobacco Use Types Packs/Day Years [...] 02/08/2011 01/11/2011 Cholesterol Screening (Lipid Panel) 02/21/2022 HIV Screening 02/21/2022 Hepatitis C Screening 02/21/2022 Social Influencers of Health Screening 02/21/2022 Depression Screening 03/21/2024 COVID-19 Vaccine ( season) 2024 Influenza Vaccine (#1) 2024 12/20/2012 DTaP,Tdap,and Td Vaccines (11 - Td or Tdap) 05/27/2031 05/26/2021, 06/19/2017, 08/22/2013, Additional history exists RSV Immunization Adult Patients (1 - 1-dose 75+ series) 08/12/2063 HIB Vaccines Completed 12/28/1989 IPV Vaccines Completed [...] patient's age to complete this topic Insurance [facility] [employer] Care Teams Agricultural Purchasing Agent Relationship Specialty Start Date End Date Physician, Pcp Unknown PCP - General 07/23/24
--- OUTSIDE RECORDS SUMMARY | 2025-01-24 07:57 | XMS_ITS | Clinical Summary ---
Author Organization [facility] Address [address] [place] [address] Care Team Providers Care Sound Truck Operator Name Role Phone Pcp, No Primary Care [...] series) 08/12/2007 Pap Smear (Ages 21-65) 2009 Influenza Vaccine 10/19/2024 COVID-19 Vaccine (1 - 2023-2 5 season) 2024 HPV Vaccines (No Doses Required) Completed Pneumococcal Vaccine: Pediat bernie (0-5 Years) and At-Risk Patients (6 to 49 Years) Aged Out No longer eligible b ased on patient's age to complete this topic Insurance [place] [id number] [facility] Care Teams Sound Truck Operator Relationship Specialty Start Date End Date Pcp, No PCP - General General Medicine 09/02/20
[2025-01-24 07:58] VITALS: BP 100/70; PULSE 114; RESP 15; TEMP 36.4; O2SAT 96; BMI 33.5
--- NOTE | 2025-01-24 07:58 | AM.OFFWIN_ITS ---
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 - Reports symptoms consistent with a uri nary tract infection, including burning sensation and dizziness. - Symptoms began recently, and the patie nt has not conducted a home test but feels certain of the diagnosis based on symptoms. - She has been getting frequent UTIs and she thinks its due to bathing in a bathtub. - Denies any blood in the urine. - Experiences dizziness, which has been persistent. - No history of medication allergies. - She denies fever, chills, CP, SOB, gadiel k pain, hematuria, or vaginal discharge. - She is in the Depo shot and does not g et her menses. Physical Exam General: Cooperative, healthy appearing, comfortable, no acute distress and well developed Cardiac: Normal S1 and S2. RRR, no M/R/G noted. Respiratory: Normal respiratory effort and able to speak in complete sentences. Clear to auscultation bilaterally. No w/r/r noted. Skin: No rashes or lesions noted. GI: Normal inspection. Normal BS noted. Soft, non-tender, non-distended. No TTP of all 4 quadrants. No guarding or rebound tenderness noted. Back: Negative CVA bilaterally Patient was informed and verbally consented to the use of an ambient scribe for clinic note documentation during this visit. [facility] Medical History No known health problems Surgical History No pertinent past surgical history Family History Mother Heart disease Father No problems noted. Other Mental health disorder Substance use disorder Social History Housing: Apartment Alcohol intake: never Patient Tobacco Use Status: Current everyday Tobacco user Cigarette Packs Per Day: 0.5 Cigarettes Per Day: 10 Years Smoked: 15 +/- e-Cigarette/Vaping Use: Never Used Substance Use Type: Marijuana Current occupational status: employed Cognitive needs: No Hearing needs: No Vision needs: No Review of Systems Const All systems reviewed & are unremarkable except as noted in HPI and below Physical Exam Vital Signs: Last Vital Signs Temp 97.6 F 01/24/25 07:58 Pulse 114 H 01/24/25 07:58 Resp 15 01/24/25 07:58 BP 100/70 01/24/25 07:58 Pulse Ox 96 01/24/25 07:58 Oxygen Delivery Method Room Air 01/24/25 07:58 BMI result Body Mass Index 33.5 Results AMB Urinalysis, Automated UA Leukoctes 500 Kike/uL Last Edit by Allie Wolf CMA on 01/24/25 08:08 UA Nitrite Negative Last Edit by Allie Wolf CMA on 01/24/25 08:08 UA Urobilinogen 0.2 mg/dL Last Edit by Allie Wolf CMA on 01/24/25 08:08 UA Protein 15 mg/dL Last Edit by Allie Wolf CMA on 01/24/25 08:08 UA pH 6.0 Last Edit by Allie Wolf CMA on 01/24/25 08:08 UA Blood 200 Jeferson/uL Last Edit by Allie Wolf CMA on 01/24/25 08:08 UA Specific [place] 1.025 Last Edit by Allie Wolf CMA on 01/24/25 08:08 UA Ketone Negative Last Edit by Allie Wolf CMA on 01/24/25 08:08 UA Bilirubin 0 mg/dL Last Edit by Allie Wolf CMA on 01/24/25 08:08 UA Glucose 0 mg/dL Last Edit by Allie Wolf CMA on 01/24/25 08:08 Results Reviewed Results Reviewed: Laboratory Last Values Urine pH (Auto) 6.0 01/24/25 07:58 Specific [place] (Auto) 1.025 01/24/25 07:58 Urine Protein (Auto) 15 mg/dL 01/24/25 07:58 Glucose (UA)(Auto) 0 mg/dL 01/24/25 07:58 Urine Ketones (Auto) Negative 01/24/25 07:58 Urine Blood (Auto) 200 Jeferson/uL 01/24/25 07:58 Urine Nitrite (Auto) Negative 01/24/25 07:58 Urine Bilirubin (Auto) 0 mg/dL 01/24/25 07:58 Urine Urobilinogen (Auto) 0.2 mg/dL 01/24/25 07:58 Leukocyte Esterase (Auto) 500 Kike/uL 01/24/25 07:58 Assessment & Plan Assessment & Plan (1) Dysuria: Code(s): R30.0 - Dysuria Plan Most likely UTI UA in the office 3+ blood and leuko Plan - Prescribed antibiotics for the treatment of the urinary tract infection. - Advised to hold omeprazole while taking antibiotics. - Sent urine culture to the lab for further analysis - will call and adjust the treatment based on the culture - follow up as needed. Orders: Orders AMB Urinalysis Automated Today Z13.9 - Encounter for screening, unspecified Urine Culture Today N39.0 - Urinary tract infection, site not specified Coding Level of Care Code Est Pt Level 3 (75395) Diagnoses Dysuria R30.0
== END 2025-01-24 08:35 | disposition home or self-care (01) ==
PROVIDERS: PCP Internal Medicine; Visit Provider Physician Assistant Medical
DX: Z13.9 Encounter for screening, unspecified (principal); R30.0 Dysuria